=== PATIENT | male | born 1955 | race African-American/Black ===

== ENCOUNTER 2016-07-23 14:42 | Emergency (ER) | payer OTHER ==
[2016-07-23] MEDS ORDERED: ACETAMINOPHEN TAB 500 MG TAB PO STA (15:16)
[2016-07-23] MEDS ORDERED: BENZONATATE 100 MG CAP PO STA (15:17)
--- NOTE | 2016-07-23 15:37 | ED ---
General Adult HPI - General Chief complaint: Upper Respiratory Infection Stated complaint: YA Time Seen by Provider: 07/23/16 15:13 Source: patient, RN notes reviewed Mode of arrival: wheelchair Limitations: no limitations - History of Present Illness Initial comments: 60-year-old male presents to the emergency department with a chief complaint of cough cold and fever like symptoms. Patient states she's been sick for the last 2-3 days. He has not had a productive cough. He states he's had a runny nose sore throat and ear pain. He states he has had fevers on and off. Patient states she's been using Motrin and Claudia-Elberfeld for her symptoms. Patient states she was concerned due to the continued cough so he thought that he should be evaluated. Patient denies any recent shortness of breath, chest pain, back pain, abdominal pain, nausea vomiting, numbness or tingling, dysuria or hematuria, constipation or diarrhea, headaches or visual changes, or any other current symptoms. - Related Data Home Medications Medication Instructions Recorded Confirmed Cholecalciferol [Vitamin D3] 2,000 unit PO DAILY 01/19/16 07/23/16 Clopidogrel [Plavix] 75 mg PO DAILY 01/19/16 07/23/16 Colchicine [Colcrys] 0.6 mg PO BID 01/19/16 07/23/16 Gabapentin [Neurontin] 300 mg PO TID 01/19/16 07/23/16 HYDROcodone/APAP 10-325MG [[place] 1 tab PO BID PRN 01/19/16 07/23/16 10-325] Lisinopril 40 mg PO DAILY 01/19/16 07/23/16 Sennosides [Senna] 8.6 mg PO BID PRN 01/19/16 07/23/16 Tamsulosin HCl [Flomax] 0.4 mg PO DAILY 01/19/16 07/23/16 amLODIPine [Norvasc] 10 mg PO DAILY 07/23/16 07/23/16 hydrALAZINE HCL [Apresoline] 50 mg PO Q6H 07/23/16 07/23/16 hydrALAZINE HCL [Apresoline] 100 mg PO Q6H 07/23/16 07/23/16 Previous Rx's Medication Instructions Recorded Carvedilol [Coreg*] 12.5 mg PO BID-W/MEALS tab 02/28/16 Oseltamivir [Tamiflu] 75 mg PO Q12HR #10 cap 07/23/16 Allergies Allergy/AdvReac Type Severity Reaction Status Date / Time morphine Allergy Anaphylaxis Verified 07/23/16 15:37 Review of Systems ROS Statement: Those systems with pertinent positive or pertinent negative responses have been documented in the HPI. ROS Other: All systems not noted in ROS Statement are negative. 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 History of Any Multi-Drug Resistant Organisms: None Reported Past Surgical History: Orthopedic Surgery Additional Past Surgical History / Comment(s): LT KNEE SX, RT WRIST BONE GRAFT, RT EAR SX(PATCH) , EGD, COLONOSOCPY Past Anesthesia/Blood Transfusion Reactions: No Reported Reaction Additional Past Anesthesia/Blood Transfusion Reaction / Comment(s): CLAUSTERPHOBIA Past Psychological History: No Psychological Hx Reported Smoking Status: Former smoker Past Alcohol Use History: None Reported Additional Past Alcohol Use History / Comment(s): STARTED SMOKING AT AGE 14 SMOKED ON AND OFF, QUIT 2011 Past Drug Use History: None Reported - Past Family History Mother Family Medical History: Hypertension Father Family Medical History: Cancer Additional Family Medical History / Comment(s): LUNG CANCER General Exam - General Exam Comments Initial Comments: General exam: Alert, active, comfortable in no apparent distress Head: Normocephalic Eyes: Normal reaction of pupils, equal size, normal range of extraocular motion Ears: normal external ear canals, pink tympanic membranes with normal cone of light Nose: clear with pink turbinates Throat: no erythema or exudates with normal sized tonsils Neck: no masses, no nuchal rigidity Chest: no chest wall deformity Lungs: equal air entry with no crackles or wheeze CVS: S1 and S2 normal with no audible mumurs, regular rhythm Abdomen: no hepatosplenomegaly, normal bowel sounds, no guarding or rigidity Spine: no scoliosis or deformity Skin: no rashes Neurological: No focal deficits, tone is normal in all 4 extremities Limitations: no limitations Course Vital Signs 07/23/16 15:00 Temperature 97.5 F L Pulse Rate 64 Respiratory 22 Rate Blood Pressure 189/99 O2 Sat by Pulse 96 Oximetry Medical Decision Making - Medical Decision Making 60-year-old male presents to the emergency Department chief complaint of cough cold and runny nose like symptoms. This and the patient is positive for influenza. At this time we will set the patient on Tamiflu. We discussed follow-up and return parameters. We discussed all the patient's questions. He stated he understood. - Lab Data Lab Results 07/23/16 Range/Units 15:34 Influenza Type A RNA Detected A (Not Detectd) Influenza Type B (PCR) Not Detected (Not Detectd) - Radiology Data Radiology results: report reviewed, image reviewed Disposition Clinical Impression: Influenza Disposition: HOME SELF-CARE Condition: Stable Instructions: Influenza (ED) Additional Instructions: Please use medication as discussed. Please follow up with family doctor if symptoms have not improved over the next two days. Please return to the emergency room if your symptoms increase or worsen or for any other concerns. Prescriptions: Oseltamivir [Tamiflu] 75 mg PO Q12HR #10 cap Referrals: Lona Marie MD [Primary Care Provider] - 1-2 days Time of Disposition: 16:10
--- NOTE | 2016-07-23 15:50 | XR ---
EXAMINATION TYPE: XR chest 2V DATE OF EXAM: 07/23/2016 3:27 PM COMPARISON: 02/27/2016 HISTORY: 60-year-old male with cough, congestion, fever TECHNIQUE: AP and lateral views FINDINGS: Heart remains upper limits of normal in size. Dilatation of the aortic knob redemonstrated. Mild inte rstitial prominence appears chronic. The medial left basilar pulmonary nodule seen on prior CT not ra diographically apparent. No consolidation or pleural effusion. IMPRESSION: 1. Redemonstrated thoracic aortic aneurysm. 2. Chronic changes, possible chronic bronchitis/asthma. No definite acute process. 3. Refer to report from CT of 02/27/2016. The suspicious nodule in the medial left lower lobe mentione d at that time is not radiographically apparent.
[2016-07-23 16:17] VITALS: BP 144/81; PULSE 60; RESP 20; TEMP 98
== END 2016-07-23 16:25 | disposition home or self-care (01) ==
LOC: EC 14:42
DX: J10.1 Influenza due to other identified influenza virus with other respiratory manifestations (principal); I11.0 Hypertensive heart disease with heart failure; I50.9 Heart failure, unspecified; N28.9 Disorder of kidney and ureter, unspecified; G47.30 Sleep apnea, unspecified; N42.9 Disorder of prostate, unspecified; Z87.891 Personal history of nicotine dependence; Z79.01 Long term (current) use of anticoagulants; Z79.899 Other long term (current) drug therapy; Z88.5 Allergy status to narcotic agent
CPT/HCPCS: 71020; 87502; 99283

== ENCOUNTER 2016-08-22 02:51 | Observation (INO) | payer OTHER ==
[2016-08-22] MEDS ORDERED: SODIUM CHLORIDE 0.9% 1,000 ML IV STA (03:26)
[2016-08-22 03:37] LABS: Basophils # (A) 0.1 k/uL (0-0.2); Basophils % (A) 1 %; CH 28.6; CHCM 34.2; Eosinophils # (A) 0.5 k/uL (0-0.7); Eosinophils % (A) 7 %; HDW 2.42; HGB 14.2 gm/dL (13.0-17.5); Luc # (Auto) 0.25; Luc % (Auto) 4; Lymphocytes # (A) 3.5 k/uL (1.0-4.8); Lymphocytes % (A) 55 %; MCH 28.3 pg (25.0-35.0); MCHC 33.8 g/dL (31.0-37.0); MCV 83.9 fL (80.0-100.0); Mean Platelet Volume 8.6; Monocytes # (A) 0.5 k/uL (0-1.0); Monocytes % (A) 8 %; Neutrophils # (A) 1.6 k/uL (1.3-7.7); Neutrophils % (A) 25 %; RBC 5.01 m/uL (4.30-5.90); RDW 14.4 % (11.5-15.5); WBC 6.3 k/uL (3.8-10.6)
[2016-08-22 03:55] LABS: Calcium 9.4 mg/dL (8.4-10.2); Total Bilirubin 0.7 mg/dL (0.2-1.3); Total Protein 7.4 g/dL (6.3-8.2)
--- NOTE | 2016-08-22 04:09 | CT ---
EXAM: CT Head Without Intravenous Contrast. CLINICAL HISTORY: Reason: Pain TECHNIQUE: Axial computed tomography images of the head/brain without intravenous contrast. CTDI is 60.30 mGy and DLP is 1036.00 mGy-cm This CT exam was performed using one or more of the following dose reduction techniques: automated exposure control, adjustment of the mA and/or kV according to patient size, and/or use of iterative reconstruction technique. COMPARISON: No relevant prior studies available. FINDINGS: Brain: Patchy periventricular white matter hypodensity bilaterally, most commonly seen on a chronic small vessel ischemic basis. There appears to be subtle hypodensity within the left midbrain and ga, that may be on a similar basis or secondary to an infarct, of indeterminate age. There is a small region of encephalomalacia alongside the right frontal horn, at the base of the right caudate head. No hemorrhage. Ventricles: Unremarkable. No ventriculomegaly. Bones/joints: Unremarkable. No acute fracture. Soft tissues: Multiple scattered dermal calcifications throughout. Vasculature: Intracranial atherosclerosis is present. Sinuses: Paranasal sinus mucosal thickening involving the bilateral frontal and ethmoid sinuses, along with a small amount of fluid in the left frontal sinus.. Mastoid air cells: Unremarkable as visualized. No mastoid effusion. IMPRESSION: 1. Diffuse presumed chronic small vessel ischemic changes along with small chronic appearing infarct alongside the right frontal horn. 2. There is additional hypodensity in the left midbrain and ga that may be on a similar, chronic small vessel basis or sequela from infarct that is technically of indeterminate age. Comparison to prior studies could be useful as may be short-term follow-up CT or MRI if concern for, or symptoms of, acute stroke persist. 3. Bilateral paranasal sinus disease, as above. [employer] 08/22/16 04:13 Call Doctor Regarding Stroke, called DR LOVE @ [phone]
--- NOTE | 2016-08-22 04:10 | XR ---
EXAM: XR Chest, 2 Views. CLINICAL HISTORY: Reason: Rule out pneumonia TECHNIQUE: Frontal and lateral views of the chest. COMPARISON: No relevant prior studies available. FINDINGS: Lungs: Pulmonary vascular markings are borderline prominent which could reflect a component of pulmonary vascular equilibration without overt CHF. Pleural space: Unremarkable. No pneumothorax. Heart: Mild cardiomegaly. Mediastinum: Aortic ectasia and mild enlargement. Bones/joints: No acute displaced fracture. Degenerative changes are present. IMPRESSION: No definite acute intrathoracic abnormality is seen, as above.
--- NOTE | 2016-08-22 05:29 | ED ---
Syncope HPI - General Chief Complaint: Dizziness Stated Complaint: Syncope/Vomiting Time Seen by Provider: 08/22/16 03:02 Source: patient, family Mode of arrival: ambulatory - History of Present Illness Initial Comments: Patient has episode of passing out, he was accompanying his to the hospital and I seen him sitting in the room with his later nurses notified me that he had passed out for a short duration there was no injury or fall but he had passed out. When I seen him he denied any headache or blurred vision or chest pain or shortness of breath he has a history of for 2 strokes in the past one small ones he called and 1 major 1 there was both for like 5 in 3 years ago previous strokes affected his left side left upper and lower extremity his left arm is weak from his previous stroke so is the left leg. His weakness is not any worse he feels it's at the same level where he was prior to today - Related Data Home Medications Medication Instructions Recorded Confirmed Cholecalciferol [Vitamin D3] 2,000 unit PO DAILY 01/19/16 08/22/16 Clopidogrel [Plavix] 75 mg PO DAILY 01/19/16 08/22/16 Colchicine [Colcrys] 0.6 mg PO BID 01/19/16 08/22/16 Gabapentin [Neurontin] 300 mg PO TID 01/19/16 08/22/16 HYDROcodone/APAP 10-325MG [[place] 1 tab PO BID PRN 01/19/16 08/22/16 10-325] Lisinopril 40 mg PO DAILY 01/19/16 08/22/16 Sennosides [Senna] 8.6 mg PO BID PRN 01/19/16 08/22/16 Tamsulosin HCl [Flomax] 0.4 mg PO DAILY 01/19/16 08/22/16 amLODIPine [Norvasc] 10 mg PO DAILY 07/23/16 08/22/16 hydrALAZINE HCL [Apresoline] 50 mg PO Q6H 07/23/16 08/22/16 hydrALAZINE HCL [Apresoline] 100 mg PO Q6H 07/23/16 08/22/16 Gabapentin [Neurontin] 300 mg PO 08/22/16 HYDROcodone/APAP 10-325MG [[place] 1 tab PO Q4HR PRN 08/22/16 08/22/16 10-325] Previous Rx's Medication Instructions Recorded Carvedilol [Coreg*] 12.5 mg PO BID-W/MEALS tab 02/28/16 Oseltamivir [Tamiflu] 75 mg PO Q12HR #10 cap 07/23/16 Allergies Allergy/AdvReac Type Severity Reaction Status Date / Time morphine Allergy Anaphylaxis Verified 07/23/16 15:37 Review of Systems ROS Statement: Those systems with pertinent positive or pertinent negative responses have been documented in the HPI. ROS Other: All systems not noted in ROS Statement are negative. 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 History of Any Multi-Drug Resistant Organisms: None Reported Past Surgical History: Orthopedic Surgery Additional Past Surgical History / Comment(s): LT KNEE SX, RT WRIST BONE GRAFT, RT EAR SX(PATCH) , EGD, COLONOSOCPY Past Anesthesia/Blood Transfusion Reactions: No Reported Reaction Additional Past Anesthesia/Blood Transfusion Reaction / Comment(s): CLAUSTERPHOBIA Past Psychological History: No Psychological Hx Reported Smoking Status: Former smoker Past Alcohol Use History: None Reported Additional Past Alcohol Use History / Comment(s): STARTED SMOKING AT AGE 14 SMOKED ON AND OFF, QUIT 2011 Past Drug Use History: None Reported - Past Family History Mother Family Medical History: Hypertension Father Family Medical History: Cancer Additional Family Medical History / Comment(s): LUNG CANCER General Exam - General Exam Comments Initial Comments: General: The patient is awake and alert, in no distress, and does not appear acutely ill. GCS is 15 Skin: Skin is warm and dry and no rashes or lesions are noted. Eye: Pupils are equal, round and reactive to light, extra-ocular movements are intact; there is normal conjunctiva bilaterally. Ears, nose, mouth and throat: There are moist mucous membranes and no oral lesions. Neck: The neck is supple, there is no tenderness or JVD. Cardiovascular: There is a regular rate and rhythm. No murmur, rub or gallop is appreciated. Noticed bradycardia heart rate was 47 Respiratory: To auscultation bilateral, no wheezing no rhonchi no distress respiratory bosch noticed him a decreased breath sounds bilaterally Gastrointestinal: Soft, non-distended, non-tender abdomen without masses or organomegaly noted. There is no rebound or guarding present. Bowel sounds are unremarkable. Back: There is no tenderness to palpation in the midline. There is no obvious deformity. Musculoskeletal: Noticed weakness of left upper and left lower extremity, according to the patient gets residual effect from his previous CVA Neurological: CN II-XII intact, Cranial nerves III through XII are intact. There are no obvious motor or sensory deficits. Coordination appears grossly intact. Speech is normal. Psychiatric: Cooperative, appropriate mood & affect, normal judgment. Course Vital Signs 08/22/16 08/22/16 03:02 03:22 Temperature 97.9 F Pulse Rate 74 56 L Respiratory 16 16 Rate Blood Pressure 121/74 121/77 O2 Sat by Pulse 91 L 98 Oximetry EKG Findings - EKG Comments: EKG Findings:: KG is a sinus bradycardia is ventricular rate is 45 his NE interval is 216, QRS duration is 98 QT/QTc is 514/444, degree of this EKG does not show any ST elevation or ST depression Medical Decision Making - Lab Data Result diagrams: 08/22/16 03:11 08/22/16 03:11 Lab Results 08/22/16 08/22/16 08/22/16 Range/Units 03:11 03:11 03:11 WBC 6.3 (3.8-10.6) k/uL RBC 5.01 (4.30-5.90) m/uL Hgb 14.2 (13.0-17.5) gm/dL Hct 42.0 (39.0-53.0) % MCV 83.9 (80.0-100.0) fL MCH 28.3 (25.0-35.0) pg MCHC 33.8 (31.0-37.0) g/dL RDW 14.4 (11.5-15.5) % Plt Count 118 L (150-450) k/uL Neutrophils % 25 % Lymphocytes % 55 % Monocytes % 8 % Eosinophils % 7 % Basophils % 1 % Neutrophils # 1.6 (1.3-7.7) k/uL Lymphocytes # 3.5 (1.0-4.8) k/uL Monocytes # 0.5 (0-1.0) k/uL Eosinophils # 0.5 (0-0.7) k/uL Basophils # 0.1 (0-0.2) k/uL Sodium 141 (137-145) mmol/L Potassium 4.0 (3.5-5.1) mmol/L Chloride 103 (98-107) mmol/L Carbon Dioxide 28 (22-30) mmol/L Anion Gap 10 mmol/L BUN 19 (9-20) mg/dL Creatinine 1.80 H (0.66-1.25) mg/dL Est GFR (MDRD) Af Amer 47 (>60 ml/min/1.73 sqM) Est GFR (MDRD) Non-Af 39 (>60 ml/min/1.73 sqM) Glucose 113 H (74-99) mg/dL Plasma Lactic Acid Brandon (0.7-2.0) mmol/L Calcium 9.4 (8.4-10.2) mg/dL Total Bilirubin 0.7 (0.2-1.3) mg/dL AST 39 (17-59) U/L ALT 45 (21-72) U/L Alkaline Phosphatase 73 (38-126) U/L Troponin I 0.013 (0.000-0.034) ng/mL Total Protein 7.4 (6.3-8.2) g/dL Albumin 3.8 (3.5-5.0) g/dL 08/22/16 Range/Units 04:10 WBC (3.8-10.6) k/uL RBC (4.30-5.90) m/uL Hgb (13.0-17.5) gm/dL Hct (39.0-53.0) % MCV (80.0-100.0) fL MCH (25.0-35.0) pg MCHC (31.0-37.0) g/dL RDW (11.5-15.5) % Plt Count (150-450) k/uL Neutrophils % % Lymphocytes % % Monocytes % % Eosinophils % % Basophils % % Neutrophils # (1.3-7.7) k/uL Lymphocytes # (1.0-4.8) k/uL Monocytes # (0-1.0) k/uL Eosinophils # (0-0.7) k/uL Basophils # (0-0.2) k/uL Sodium (137-145) mmol/L Potassium (3.5-5.1) mmol/L Chloride (98-107) mmol/L Carbon Dioxide (22-30) mmol/L Anion Gap mmol/L BUN (9-20) mg/dL Creatinine (0.66-1.25) mg/dL Est GFR (MDRD) Af Amer (>60 ml/min/1.73 sqM) Est GFR (MDRD) Non-Af (>60 ml/min/1.73 sqM) Glucose (74-99) mg/dL Plasma Lactic Acid Brandon 0.8 (0.7-2.0) mmol/L Calcium (8.4-10.2) mg/dL Total Bilirubin (0.2-1.3) mg/dL AST (17-59) U/L ALT (21-72) U/L Alkaline Phosphatase (38-126) U/L Troponin I (0.000-0.034) ng/mL Total Protein (6.3-8.2) g/dL Albumin (3.5-5.0) g/dL Disposition Clinical Impression: Syncope, Bradycardia, TIA (transient ischemic attack), Sinusitis Disposition: ADMITTED IP TO THIS HOSP Condition: Good
[2016-08-22] MEDS ORDERED: ACETAMINOPHEN TAB 325 MG TAB PO PRN (05:32)
[2016-08-22] MEDS ORDERED: ONDANSETRON 4 MG/2 ML VIAL IVP PRN (05:32)
[2016-08-22] MEDS ORDERED: NALOXONE 0.4 MG/ML 1 ML VIAL IV PRN (05:32)
[2016-08-22] MEDS ORDERED: SENNOSIDES 8.6 MG TAB PO PRN (05:40)
[2016-08-22] MEDS: hydrALAZINE HCL 50 MG TAB PO SCH ×8 (06:57→23:05)
[2016-08-22 07:10] LABS: Appearance,Urine Clear (Clear); Bilirubin,Urine Negative (Negative); Glucose,Urine (UA) Negative (Negative); Ketones,Urine Negative (Negative); Leukocyte Esterase,Urine Trace (Negative); Mucus,Urine Rare /hpf; Nitrite,Urine Negative (Negative); PH, Urine 5.5 (5.0-8.0); Particle Count 1270; Protein,Urine Negative (Negative); Squamous Epithelial Cell,Urine <1 /hpf (0-4); UA Billing (MACRO vs. MICRO) MICRO; Urobilinogen,Urine <2.0 mg/dL (<2.0); WBC,Urine 4 /hpf (0-5)
[2016-08-22] MEDS ORDERED: CARVEDILOL 12.5 MG TAB PO SCH (07:30)
[2016-08-22] MEDS: HYDROcodone/APAP 10-325MG 1 EACH TAB PO PRN ×2 (08:23→17:08)
[2016-08-22] MEDS ORDERED: GABAPENTIN 300 MG CAP PO SCH (09:00)
[2016-08-22] MEDS: COLCHICINE 0.6 MG TAB PO SCH ×2 (09:11→23:05)
[2016-08-22] MEDS: LISINOPRIL 20 MG TAB PO SCH (09:11)
[2016-08-22] MEDS: amLODIPine 10 MG TAB PO SCH (09:11)
[2016-08-22] MEDS: CLOPIDOGREL 75 MG TAB PO SCH (09:11)
[2016-08-22] MEDS: GABAPENTIN 300 MG CAP PO SCH ×3 (09:12→20:55)
[2016-08-22] MEDS: TAMSULOSIN 0.4 MG CAP.ER.24H PO SCH (09:12)
[2016-08-22] MEDS: CHOLECALCIFEROL 1,000 UNIT TAB PO SCH (09:12)
[2016-08-22] MEDS ORDERED: DOBUTamine DRIP for NUC MED 500 MG in DEXTROSE/WATER 1 250ML.BAG IV ONE (15:17)
--- NOTE | 2016-08-22 18:52 | CONS ---
DATE OF CONSULTATION: 08/22/2016 REASON FOR CONSULTATION: Cardiac evaluation and treatment of syncope. HISTORY OF PRESENT ILLNESS: Mr. Mauro Lauren is a known patient with hypertension with history of stroke 2 days ago with left-sided weakness, but patient is able to walk without any help but unable to raise the left hand; has grade 3 power and is weak. Patient apparently had an episode of nausea and vomiting in [facility] and then he passed out without any loss of bladder or bowel control. No injuries were noted. Patient was sitting at that time. Denied any headache. CT of the brain did not show any acute ischemic changes and chronic changes, small vessel disease. Patient apparently claims to be reasonably active and walks about in the [facility]. Patient denied any chest pain or pressure. No previous history of myocardial infarction. History of hypertension and stroke. Patient is currently on: 1. Vitamin D 2000 units daily. 2. Plavix 75 mg p.o. daily. 3. Colchicine 0.6 mg p.o. b.i.d. 4. Neurontin 300 mg p.o. t.i.d. 5. Kopperl 1 b.i.d. p.r.n. 6. Lisinopril 40 mg p.o. daily. 7. Senna 8.6 mg p.o. b.i.d. 8. Flomax 0.4 mg p.o. daily. 9. Amlodipine 10 mg p.o. daily. 10. Hydralazine 50 mg every 6 hours. 11. Hydralazine 100 mg every 6 hours. 12. Gabapentin 300 mg p.o. daily. 13. Hydrocodone Kopperl p.r.n. basis. Patient's previous medications included: 1. Carvedilol (will be discontinued because of the bradycardia; may be aggravated by vagal tone associated with nausea). 2. Tamiflu, which was discontinued. ALLERGIES: MORPHINE. Patient used to be a smoker; quit smoking 5 years ago. Does not take any alcoholic beverages. Patient has a history of hypertension, prostate disorder, renal disease, sleep apnea, history of gout. Patient denies any symptoms at the present time. REVIEW OF SYSTEMS: Essentially unremarkable other than what is stated in the presenting illness. Physical examination revealed a well-developed, well-nourished 61-year-old black male with stable vital signs with a pulse rate of 60 beats per minute and regular, blood pressure of 164/93, respirations of 17. HEAD: Normocephalic. HEENT unremarkable. Neck is supple. No thyroid enlargement. No bruit noted. Good carotid upstroke bilaterally. Chest is symmetrical. Cardiac examination: regular rate and rhythm. S1, S2. Lungs are clinically to auscultation and percussion. Abdomen is soft. No organomegaly. Active bowel sounds. EXTREMITIES: Peripheral pulses. No pedal edema. 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 Patient ( ) stroke. EKG revealed sinus bradycardia. ASSESSMENT: 1. Syncope, probably aggravated by increasing vagal tone associated with nausea, coughing and bradycardia and hypotension resulting in symptoms, but will rule out any underlying ischemic heart disease. Patient had an echocardiogram in December which showed normal LV function, mild LVH. Will proceed with a dobutamine stress echocardiogram, as patient is unable to do any Lexiscan because he is unable to lift his left hand, to rule out underlying ischemic heart disease. Will discontinue the carvedilol. 2. Bradycardia. Will get the TSH to make sure patient does not have any hyperthyroidism. 3. Hypertension. Will get lipid panels, also. 4. History of old cerebrovascular accident with left-sided weakness.
--- NOTE | 2016-08-22 20:57 | NM ---
EXAMINATION TYPE: NM pul vent and perfuse DATE OF EXAM: 08/22/2016 8:48 PM COMPARISON: NONE HISTORY: Chest pain TECHNIQUE: Utilizing inhalation of 70.5 mCi Tc 99m DTPA aerosol and intravenous injection of 5.5 mCi of Tc 99m MAA, ventilation and perfusion images are acquired post injection in multiple projections. FINDINGS: Normal radiotracer distribution is noted in the lungs. There is no evidence of mismatched defects. IMPRESSION: Negative lung scan. There is a very low probability of pulmonary was.
[2016-08-22] MEDS ORDERED: ENOXAPARIN 100 MG/ML SYRINGE SQ SCH (21:00)
[2016-08-22] MEDS ORDERED: ATORVASTATIN 20 MG TAB PO SCH (21:00)
[2016-08-23] MEDS ORDERED: DOBUTamine DRIP for NUC MED 500 MG in DEXTROSE/WATER 1 250ML.BAG IV ONE (01:00)
[2016-08-23] MEDS ORDERED: HEPARIN SODIUM,PORCINE 5,000 UNIT/ML 1 ML VIAL SQ SCH (08:00)
--- NOTE | 2016-08-23 08:39 | US ---
EXAMINATION TYPE: US carotid duplex BILAT DATE OF EXAM: 08/23/2016 7:44 AM COMPARISON: Prior exam 27 February 2016 CLINICAL HISTORY: Syncope, Hx of CVA. Syncope, TIA, HTN EXAM MEASUREMENTS: RIGHT: Peak Systolic Velocity (PSV) cm/sec ----- Right CCA: 42.3 ----- Right ICA: 71.1 ----- Right ECA: 42.2 ICA/CCA ratio: 1.7 RIGHT: End Diastole cm/sec ----- Right CCA: 14.1 ----- Right ICA: 32.7 ----- Right ECA: 11.1 LEFT: Peak Systolic Velocity (PSV) cm/sec ----- Left CCA: 38.7 ----- Left ICA: 70.6 ----- Left ECA: 40.2 ICA/CCA ratio: 1.8 LEFT: End Diastole cm/sec ----- Left CCA: 12.5 ----- Left ICA: 28.7 ----- Left ECA: 8.1 VERTEBRALS (direction of flow): Right Vertebral: Antegrade Left Vertebral: Antegrade Bilateral intimal thickening, minimal plaque right bulb, no elevated velocities, no significant steno sis Thyroid: right lobe 1.6 x 1.2 x 1.5cm complex vascular nodule Grayscale, color Doppler, spectral Doppler imaging performed of the carotid arteries. IMPRESSION: No hemodynamic significant stenosis of the proximal internal carotid arteries bilaterall y by Doppler criteria, an indirect measurement of carotid stenosis
[2016-08-23] MEDS: COLCHICINE 0.6 MG TAB PO SCH (09:25)
[2016-08-23] MEDS: CLOPIDOGREL 75 MG TAB PO SCH (09:25)
[2016-08-23] MEDS: hydrALAZINE HCL 50 MG TAB PO SCH ×4 (09:25→11:02)
[2016-08-23] MEDS: amLODIPine 10 MG TAB PO SCH (09:25)
[2016-08-23] MEDS: LISINOPRIL 20 MG TAB PO SCH (09:25)
[2016-08-23] MEDS: GABAPENTIN 300 MG CAP PO SCH (09:25)
--- NOTE | 2016-08-23 09:38 | CONS ---
DATE OF CONSULTATION: 08/22/2016 CHIEF COMPLAINT: Syncope. HISTORY OF PRESENT ILLNESS: Mr. Lauren is a pleasant 61-year-old male who is being evaluated by the neurology service per the request of Dr. Weller for a syncopal spell. The patient was into [facility] Emergency Room his girlfriend who had come in for increased bleeding after a dental procedure. While in the emergency room, the patient had a syncopal episode. The patient does not recall any chest palpitations, but does remember feeling dizzy prior to the episode. His vital signs at that time were normal except for a slightly reduced pulse ox at 91%. A stat EKG was done, which showed sinus bradycardia with a pulse of 45 beats per minute. A CT scan of the brain was done, which showed old infarcts involving the right frontal lobe and also involving the left ga and mid brain. The patient does have a previous history of stroke with residual left upper extremity weakness, which he suffered a few years ago. The patient is on Plavix 75 mg daily at home. His CBC showed thrombocytopenia at 118,000. His cardiac enzymes and urinalysis were normal. His comprehensive metabolic profile was normal except for elevated creatinine at 1.80. His fasting lipid panel showed mild dyslipidemia with an LDL of 119. The patient was admitted for further work-up and management. At the time of my evaluation, the patient is lying in his bed and appears to be in no acute distress. He denies any recurrence of any dizziness since his admission. PAST MEDICAL HISTORY: Heart failure, stroke, gastroesophageal reflux disease, hypertension, chronic renal disease, obstructive sleep apnea, gout, history of orthopedic surgeries. SOCIAL HISTORY: The patient is a former smoker and quit smoking approximately 4 years ago. He denies any alcohol or drug use. FAMILY HISTORY: Positive for cancer and hypertension. HOME MEDICATIONS: Reviewed in the chart. ALLERGIES: MORPHINE. REVIEW OF SYSTEMS: CONSTITUTIONAL: Negative. EYES: Negative. ENT: Negative. CARDIOVASCULAR: As mentioned above. RESPIRATORY: Negative. NEUROLOGICAL: As mentioned above. GASTROINTESTINAL: Positive for occasional heartburn. GENITOURINARY: Negative. MUSCULOSKELETAL: Positive for occasional joint pain. DERMATOLOGICAL: Negative. ENDOCRINE: Negative. PSYCHIATRIC: Negative. PHYSICAL EXAM: Vital signs show a temperature of 97.5, pulse 61, respirations 17, blood pressure 152/92. GENERAL APPEARANCE: The patient is a well-developed male who appears to be in no acute distress. HEENT: Normocephalic, atraumatic. No facial asymmetry is seen. Neck is supple with no masses felt. CARDIOVASCULAR: Regular rate and rhythm. ABDOMEN: Nontender, nondistended. EXTREMITIES: No edema or clubbing. He does have some contractures in the left upper extremity due to his old ischemic stroke. NEUROLOGICAL EXAM: The patient is alert, aware, and oriented x3. Speech and language are normal. Strength is 3/5 in the left upper extremity and 5/5 elsewhere. Mild contractures are noticed in the left upper extremity. Sensory exam was normal to light touch in all 4 extremities. No facial asymmetry is seen on cranial nerve testing. No seizure-like activity is seen. IMPRESSION: 1. Syncopal episodes. 2. Sinus bradycardia. 3. History of ischemic stroke. 4. Left upper extremity weakness. 5. Dyslipidemia. 6. Renal insufficiency. 7. Thrombocytopenia. RECOMMENDATIONS: The patient's syncopal episode was likely due to his significant bradycardia. He is currently in a normal sinus rhythm with a normal rate. Cardiology has been consulted. I will order an EEG and a carotid Doppler. For his previous history of stroke, I will keep him on Plavix 75 mg daily. I did review his CT scan of the brain which did show his old multiple ischemic strokes. His fasting lipid panel did show elevated LDL and I will start him on 20 mg daily. I do recommend further monitoring for his thrombocytopenia. Continue the rest of your current work-up and management. I will continue to follow with you. Further recommendations to follow. Thank you for allowing me to participate in the care of your patient. If you have any questions, please feel free to contact me.
[2016-08-23] MEDS: TAMSULOSIN 0.4 MG CAP.ER.24H PO SCH (09:41)
[2016-08-23] MEDS: CHOLECALCIFEROL 1,000 UNIT TAB PO SCH (09:41)
[2016-08-23 09:55] VITALS: RESP 18
--- NOTE | 2016-08-23 10:54 | HP ---
DATE OF ADMISSION: 08/22/2016 CHIEF COMPLAINT: Syncope. HISTORY OF PRESENT ILLNESS: Mr. Lauren is a 61-year-old male with known history of hypertension, obstructive sleep apnea, on CPAP and history of previous CVA about two years ago with left-sided weakness and had an episode of passing out while he was in the ER. The patient was accompanying his to the hospital and the patient was in the room with his . Nurses notified that the patient had an episode of passing out for a few seconds. Patient does not have any fall or injury. Denied any headache or blurry vision. Patient had an episode of nausea and vomiting and ( ) passing out. No bladder or bowel incontinence and no shaky movements noted or seizures. Patient has a history of stroke in the past with left-sided weakness both upper and lower extremities. No worsening of weakness noted. The patient was also noted to have bradycardia and the patient had a CT of the head was done in the ER that showed no acute intracranial process. REVIEW OF SYSTEMS: CONSTITUTIONAL: No fever. No chills. No weakness. No new weakness and no malaise. RESPIRATORY: No cough or sputum production. CARDIOVASCULAR: No chest pain or short of breath. ABDOMEN: No nausea, vomiting, abdominal pain. GENITOURINARY: Negative. ENDOCRINE: Negative. NEUROLOGIC: No headache or dizziness or lightheadedness. All other fourteen-point review of systems negative except as above. PAST MEDICAL HISTORY: Gout and DJD, obstructive sleep apnea noncompliant with the CPAP machine, hypertension, prostate disorder, history of cerebrovascular accident/transient ischemic attack, GERD. Past surgical history of left knee surgery, right wrist bone graft and right ear surgery, EGD, colonoscopy. No psychosocial history. SOCIAL HISTORY: The patient is a former smoker, started smoking at age 14, smoked on and off, quit in 2011. FAMILY HISTORY: Mother has hypertension. Father has lung cancer. ALLERGIES: MORPHINE. Home medications: 1. Vitamin D3. 2. Plavix. 3. Colchicine. 4. Gabapentin. 5. [place] 10. 6. Lisinopril. 7. Senna. 8. Flomax. 9. Amlodipine. 10. Hydralazine. 11. Gabapentin. 12. Coreg. 13. Tamiflu. PHYSICAL EXAMINATION: A 61-year-old male lying in the bed. Awake, alert, oriented, x3. He appears to be in no apparent distress. VITALS: Blood pressure 121/77, pulse is 56, respirations 16, temperature afebrile, pulse ox 98% on 2 liters nasal cannula. HEENT: Atraumatic, normocephalic. Neck is supple. No JVD. CVS: S1, S2 heard. No murmurs, no gallop. LUNGS: Bilateral air entry is present. No wheezing, no crackles. ABDOMEN: Soft, nontender. Bowel sounds present. 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 The patient does have left sided weakness. Muscle strength 3/5 in both upper and lower extremity. PSYCHIATRIC: Cooperative. LABORATORY DATA: WBC 6.3, hemoglobin 14.2, platelets 118. Sodium 141, potassium 4.0, chloride 103, bicarb is 28. BUN 19, creatinine 1.8, lactic acid 0.8. Liver enzymes are not elevated. Troponin 0.013. TSH 3.7. UA negative. Chest x-ray no definite acute intrathoracic abnormality seen. CT head diffuse ( ) small ischemic changes along with small chronic appearing infarct along the right frontal horn. IMPRESSION: 1. Syncope most likely last vasovagal. Patient had an episode of nausea and coughing with bradycardia, rule out acute coronary syndrome. The patient had last echocardiogram done, showed normal left ventricular function. Cardiology is recommending dobutamine stress echocardiogram. Patient does not have any worsening weakness. Neurology has been consulted as well. 2. Bradycardia, Coreg has been held at this time and TSH is within normal limits. 3. Hypertension. 4. Obstructive sleep apnea noncompliant with CPAP machine. 5. History of cerebrovascular accident with left-sided weakness, motor strength 3 out of 5. 6. Chronic kidney disease, stage III, baseline creatinine 1.8. 7. Gastroesophageal reflux disease. 8. Degenerative joint disease. 9. Gout. 10. Deep venous thrombosis prophylaxis, on heparin subcu. DISCUSSION AND PLAN: The patient is a 61 -year-old male admitted to the hospital with syncopal episode, most like vasovagal, we will continue the telemetry monitoring. Coreg has been held due to bradycardia. Cardiology is planning for stress test tomorrow. We will continue the current management and further recommendations based on clinical glucose.
[2016-08-23] MEDS ORDERED: ATROPINE SULFATE 0.1 MG/ML 10ML SYRINGE ONE (12:00)
--- NOTE | 2016-08-23 12:29 | P.PN ---
Subjective Principal diagnosis: Syncope This is a 61-year-old -Swazi gentleman with history of hypertension, obstructive sleep apnea, on CPAP, chronic kidney disease, prior CVA , who had an episode of nausea and vomiting in [facility], at this time patient had passed out. He had no loss of bowel or bladder control during that time. Denied any headache, CT of the brain did not reveal any acute ischemic changes. Patient was also noted to be bradycardic. Coreg was held. TSH normal. Blood pressure this morning 150/80 heart rate in the 60s. Patient scheduled today to undergo dobutamine echocardiographic study. Carotid Doppler study did not reveal any hemodynamically significant stenosis. VQ scan low probability for pulmonary embolism. Objective - Vital Signs Vital signs: Vital Signs Temp 98.0 F 08/23/16 08:00 Pulse 64 08/23/16 08:00 Resp 18 08/23/16 08:00 BP 195/111 08/23/16 08:00 Pulse Ox 99 08/23/16 08:00 Intake & Output 08/22/16 08/23/16 08/23/16 18:59 06:59 18:59 Intake Total 600 360 Balance 600 360 Weight 107.6 kg 107.6 kg Intake: Oral 600 360 Other: # Voids 1 1 1 - Exam PHYSICAL EXAMINATION: HEENT: Head is atraumatic, normocephalic. Pupils equal, round. Neck is supple. There is no elevated jugular venous pressure. HEART EXAMINATION: Heart S1, S2 normal. No murmur or gallop heard. CHEST EXAMINATION: Lungs are clear to auscultation and precussion. No chest wall tenderness is noted on palpation or with deep breathing. ABDOMEN: Soft, nontender. Bowel sounds are heard. No organomegaly noted. EXTREMITIES: 2+ peripheral pulses with no evidence of peripheral edema and no calf tenderness noted. Left-sided weakness noted. Mild contractures noted in the left upper extremity. NEUROLOGIC patient is awake, alert and oriented -3. No facial asymmetry noted. . - Labs CBC & Chem 7: 08/22/16 03:11 08/22/16 03:11 Labs: Abnormal Lab Results - Last 24 Hours (Table) 08/22/16 Range/Units 16:28 D-Dimer 2.79 H (<0.60) mg/L FEU Assessment and Plan (1) Vasovagal syncope Status: Acute (2) Bradycardia Status: Acute (3) HTN (hypertension) Status: Acute (4) History of CVA (cerebrovascular accident) Status: Acute (5) Chronic kidney disease Status: Acute (6) Obstructive sleep apnea Status: Acute Plan: Patient scheduled today to undergo dobutamine echocardiographic study, pending the results of that further recommendations will be made. DNP note has been reviewed, I agree with a documented findings and plan of care. Patient was seen and examined.
[2016-08-23 12:34] VITALS: BP 170/98; PULSE 70; TEMP 98.5
--- NOTE | 2016-08-23 13:43 | EST ---
DATE OF SERVICE: 08/23/2016 AGE: 61Y SEX: M HT: 68 WT: 240 lbs. Protocol Tyrese: Other: Stage: Dur. of Exercise: 14:15 minutes *Heart Rate Blood Pressure *Rest: 58 Rest: 154/75 * *Max. Achieved: 147 Maximum BP: 20/94 85% PMHR: 137 100% PMHR: 161 *METS: INDICATIONS: Syncope. MEDICATIONS: See list. Baseline rhythm is sinus mechanism, rate of 58, normal axis and intervals, poor R wave progression. Baseline blood pressure 154/75 mmHg. Patient received infusion of dobutamine per protocol and 1 mg intravenous atropine. Peak rate 147 beats per minute, which is equal to 91% maximum predicted heart rate; peak blood pressure 204/94 mmHg. Electrocardiograph monitoring revealed no evidence of diagnostic ischemic ST deviation. FINDINGS: Baseline echocardiogram revealed normal wall motion. At peak exercise there was normal wall motion augmentation with no hypokinesis or dyskinesis. CONCLUSION: 1. Normal electrocardiograph response to dobutamine infusion. 2. Normal stress echocardiogram with no evidence of stress induced ischemia.
[2016-08-23 14:08] VITALS: BMI 36.1
[2016-08-23] MEDS ORDERED: HYDROCHLOROTHIAZIDE 50 MG TAB PO SCH (15:30)
--- NOTE | 2016-08-23 16:12 | P.PN ---
Subjective Principal diagnosis: Syncope Is a pleasant 61-year-old -[place] male continuing to be evaluated by the neurology service. She was brought in due to some increased bleeding after a dental procedure. While he was in the emergency room he had a syncopal episode. His carotid Doppler showed no hemodynamically significant stenosis. It did show of vascular thyroid nodule. He does have a history of previous CVA involving the left ga and midbrain. From this episode he does have residual left upper extremity weakness. He is currently on Plavix. Cardiology has evaluated and diagnosed with likelihood of vasovagal syncope. He has no new persistent neurological symptoms. At the time my exam he is resting comfortably in bed and anxious for discharge. Objective - Vital Signs Vital signs: Vital Signs Temp 98.5 F 08/23/16 12:00 Pulse 70 08/23/16 12:00 Resp 18 08/23/16 12:00 BP 170/98 08/23/16 12:00 Pulse Ox 99 08/23/16 12:00 Intake & Output 08/22/16 08/23/16 08/23/16 18:59 06:59 18:59 Intake Total 600 360 120 Balance 600 360 120 Weight 107.6 kg 107.6 kg Intake: Oral 600 360 120 Other: # Voids 1 1 1 - Constitutional General appearance: Present: average body habitus, no acute distress - EENT Eyes: Present: PERRLA. Absent: abnormal pupil, ptosis ENT: Present: hearing grossly normal - Neck Neck: Present: normal ROM. Absent: rigidity - Respiratory Respiratory: negative: prolonged expiration, prolonged inspiration - Cardiovascular Rhythm: regular - Neurologic Neurologic Comment(s): Patient is alert awake and oriented 3. Speech-language are normal. Strength is 3 out of 5 left upper extremity 5 out of 5 in all other extremities. Sensory exam is normal light touch. There is no facial asymmetry no tremors or seizure-like activities are seen. - Labs CBC & Chem 7: 08/22/16 03:11 08/22/16 03:11 Labs: Abnormal Lab Results - Last 24 Hours (Table) 08/22/16 08/23/16 Range/Units 16:28 06:13 D-Dimer 2.79 H (<0.60) mg/L FEU Homocysteine 19.28 H (4.00-14.00) umol/L Assessment and Plan (1) Bradycardia Status: Chronic (2) HTN (hypertension) Status: Chronic (3) History of CVA (cerebrovascular accident) Status: Chronic (4) Obstructive sleep apnea Status: Chronic (5) Syncope Status: Resolved Plan: His syncopal episode was due to his significant bradycardia. Etiology will continue to follow. He'll continue on Plavix and Lipitor 20 mg daily. Barring any of her seen abnormalities on his EEG he would be cleared from neurological standpoint. I have performed a history and physical on the above patient. I have reviewed the above note, and agree.
--- NOTE | 2016-08-24 23:48 | DS ---
DATE OF ADMISSION: 08/22/2016 DATE OF DISCHARGE: 08/23/2016 DISCHARGE DIAGNOSES: 1. Syncope, most likely vasovagal and bradycardia, Coreg has been discontinued CT duplex has been negative. The EEG report is pending. Patient had a stress echocardiogram done showed no stress induced ischemia. 2. Bradycardia Coreg dose has been discontinued and TSH is within normal limits. Bradycardia, improved now. 3. Hypertension. 4. Obstructive sleep apnea on CPAP. 5. History of cerebrovascular accident with left-sided weakness and motor strength 3 out of 5. Continued on Plavix and statins. 6. Chronic kidney disease, Stage III, baseline creatinine 1.8. 7. Gastroesophageal reflux disease. 8. Degenerative joint disease . 9. Gout. 10. Deep venous thrombosis prophylaxis, heparin subcu. HOSPITAL COURSE: Mr. Lauren is a 61-year-old male with known history of cerebrovascular accident x2 was accompany his to the hospital where he was having an episode of syncope and found to be bradycardic and had an episode of nausea and vomiting. Syncope most likely secondary to vasovagal and bradycardia. Patient has been taking Coreg 12.5 mg p.o. b.i.d., which has been discontinued and bradycardia much improved now. The patient seen by neurology and cardiology and neurology work-up including CT head, carotid duplex and EEG preliminary report has been essentially negative. The patient was seen by Cardiology and the patient had a stress echocardiogram showed no inducible ischemia. Otherwise, ( ) the hospital. The patient did not have any further syncopal episode. No complaints of dizziness or lightheadedness. The patient wants to go home. Coreg has been discontinued and hydrochlorothiazide has been started due to uncontrolled hypertension. The patient is on multiple blood pressure medications. The patient follows with Dr. Mendez as an outpatient the cardiology clinic at [facility]. Otherwise, the patient will be continued on ( ) continued on Plavix as well as statins. Currently continued on Lasix as well as statins. The patient is otherwise stable to be discharged home and follow with the primary physician in 1 to 3 days for repeat lab work-up. DISCHARGE PHYSICAL EXAMINATION: A 61-year-old male lying in bed comfortably. Awake, alert, oriented, x3 appears to be in no apparent distress. VITALS: Pressure is 170/98, pulse is 70, respirations 18, temp afebrile. Pulse ox 99% on room air. HEENT: Atraumatic, normocephalic. Neck is supple. No JVD. CARDIOVASCULAR: S1, S2 heard. No murmurs. No gallops. LUNGS: Bilateral air entry is present. No wheezing, no crackles. ABDOMEN: Soft, nontender. Bowel sounds present. CLOTH HAULER: Awake, alert, oriented x3. The patient does have left sided weakness. PSYCHIATRIC: Cooperative. LABORATORY DATA: Reviewed. D-dimer is elevated but VQ scan has been negative. Has been very low probability pulmonary embolism. EKG showed sinus bradycardia. DISCHARGE MEDICATIONS include: 1. Vitamin D3 2000 units p.o. daily. 2. Plavix 75 mg p.o. daily. 3. Colchicine 0.6 mg p.o. b.i.d. 4. Gabapentin 300 mg p.o. t.i.d. 5. Lisinopril 40 mg p.o. daily. 6. Senna 8.6 mg p.o. b.i.d. p.r.n. for constipation. 7. Tamsulosin 0.4 mg p.o. daily. 8. Norvasc 10 mg daily. 9. Hydralazine 50 mg p.o. q.6 hourly. 10. Hydralazine 100 mg p.o. q.6 hourly. 11. Spring 10 1 tablet p.o. q.4 hourly p.r.n. for pain. 12. Lipitor 20 mg p.o. at bedtime. 13. Hydrochlorothiazide 50 mg p.o. daily. Patient will be discharged home in stable condition. Activity as tolerated. Follow-up with Dr. Lona Marie in primary care physician. Home with self-care. Heart healthy diet. Activity as tolerated.
--- NOTE | 2016-08-27 08:39 | EEG ---
DATE OF SERVICE: 08/23/2016 REASON FOR TESTING: Syncope. AGE: 61Y DESCRIPTION OF THE PROCEDURE: This EEG was performed using a 21-channel digital electroencephalograph, following the international 10 to 20 system. DESCRIPTION OF THE RECORDING: From the beginning of the tracing, and with the patient's eyes closed, the background rhythm was mostly consisting of 9 to 10 Hz alpha frequency in the posterior occipital leads. No obvious asymmetry is seen. Occasional muscle artifacts and movement artifacts are seen. Photic stimulation was performed with a minimal driving response seen. No pathological waves were elicited. Hyperventilation was not performed. The patient remains awake throughout the tracing. No epileptiform discharges were seen. His EKG lead showed a bradycardic rate with a normal rhythm. INTERPRETATION: This awake EEG can be considered within normal limits. There was no asymmetry seen. No epileptiform discharges were noticed. The absence of epileptiform discharges does not rule out the diagnosis of epilepsy, therefore, clinical correlation is recommended. Of note, his EKG lead showed a bradycardic rate with a normal rhythm.
== END 2016-08-23 17:19 | disposition home or self-care (01) ==
LOC: EC 02:51 → 6SEL 05:32
PROVIDERS: ADMIT Hospitalist; ATTEND Hospitalist
DX: R55 Syncope and collapse (principal); R00.1 Bradycardia, unspecified; G47.33 Obstructive sleep apnea (adult) (pediatric); M10.9 Gout, unspecified; K21.9 Gastro-esophageal reflux disease without esophagitis; I69.334 Monoplegia of upper limb following cerebral infarction affecting left non-dominant side; E78.5 Hyperlipidemia, unspecified; I13.0 Hypertensive heart and chronic kidney disease with heart failure and stage 1 through stage 4 chronic kidney disease, or unspecified chronic kidney disease; N18.3 Chronic kidney disease, stage 3 (moderate); M19.90 Unspecified osteoarthritis, unspecified site; I50.9 Heart failure, unspecified; D69.6 Thrombocytopenia, unspecified; Z80.1 Family history of malignant neoplasm of trachea, bronchus and lung; Z88.5 Allergy status to narcotic agent; Z79.02 Long term (current) use of antithrombotics/antiplatelets; Z91.19 Patient's noncompliance with other medical treatment and regimen; Z87.891 Personal history of nicotine dependence; Z82.49 Family history of ischemic heart disease and other diseases of the circulatory system; Z79.899 Other long term (current) drug therapy
CPT/HCPCS: 99285 ×2; 96360 ×2; 96361 ×5; 36415; 95819; 93005; 93017; 93350; 97161; 97165; 85379; 80061; 80053; 83605; 84443; 84484; 85025; 81001; 83090; 71020; 93880; 70450; 78582; G0378 ×2; A9540; A9567; J1250; J1644; J1650; J0461

== ENCOUNTER 2016-10-21 18:37 | Inpatient (IN) | payer OTHER ==
[2016-10-21] MEDS ORDERED: SODIUM CHLORIDE 0.9% 1,000 ML IV STA (19:15)
--- NOTE | 2016-10-21 19:20 | ED ---
General Adult HPI - General Chief complaint: Neuro Symptoms/Deficit Stated complaint: POSS CVA Time Seen by Provider: 10/21/16 19:09 Source: patient, RN notes reviewed Mode of arrival: wheelchair Limitations: no limitations - History of Present Illness Initial comments: Patient is a pleasant 61-year-old male presenting to the emergency department with concerns for leg weakness and facial paresthesia. Onset was yesterday. Symptoms have been persistent since that time. Patient feels his left side of his face feels numb. Patient has left arm weakness however this is chronic and unchanged from normal. Patient feels like both of his legs are somewhat weak. Patient had similar problems previously associated with stroke. - Related Data Home Medications Medication Instructions Recorded Confirmed Cholecalciferol [Vitamin D3] 2,000 unit PO DAILY 01/19/16 10/21/16 Clopidogrel [Plavix] 75 mg PO DAILY 01/19/16 10/21/16 Colchicine [Colcrys] 0.6 mg PO BID 01/19/16 10/21/16 Gabapentin [Neurontin] 300 mg PO TID 01/19/16 10/21/16 Lisinopril 40 mg PO DAILY 01/19/16 10/21/16 Sennosides [Senna] 8.6 mg PO DAILY PRN 01/19/16 10/21/16 Tamsulosin HCl [Flomax] 0.4 mg PO DAILY 01/19/16 10/21/16 amLODIPine [Norvasc] 10 mg PO DAILY 07/23/16 10/21/16 hydrALAZINE HCL [Apresoline] 50 mg PO Q6H 07/23/16 10/21/16 hydrALAZINE HCL [Apresoline] 100 mg PO Q6H 07/23/16 10/21/16 HYDROcodone/APAP 10-325MG [[place] 1 tab PO Q4HR PRN 08/22/16 10/21/16 10-325] Carvedilol [Coreg] 12.5 mg PO BID 10/21/16 10/21/16 Allergies Allergy/AdvReac Type Severity Reaction Status Date / Time morphine Allergy Anaphylaxis Verified 10/21/16 20:05 Review of Systems ROS Statement: Those systems with pertinent positive or pertinent negative responses have been documented in the HPI. ROS Other: All systems not noted in ROS Statement are negative. Constitutional: Denies: fever Eyes: Denies: eye pain ENT: Denies: ear pain Respiratory: Denies: cough Cardiovascular: Denies: chest pain Endocrine: Denies: fatigue Gastrointestinal: Denies: abdominal pain Genitourinary: Denies: urgency Musculoskeletal: Denies: back pain Skin: Denies: rash Neurological: Reports: weakness, paresthesias. Denies: confusion Past Medical History Past Medical History: Heart Failure, CVA/TIA, GERD/Reflux, Hypertension, Prostate Disorder, Renal Disease, Sleep Apnea/CPAP/BIPAP Additional Past Medical History / Comment(s): CVA with slight L arm, L leg weakness, TIA, CKD stage III, problem with his "taste buds"- nothing tastes good , gout bilateral feet and wrists, BPH, DJD, BAN- DOES'NT USE CPAP MACHINE History of Any Multi-Drug Resistant Organisms: None Reported Past Surgical History: Orthopedic Surgery Additional Past Surgical History / Comment(s): LT KNEE repair SX, RT WRIST BONE GRAFT, RT EAR SX(PATCH) , EGD, COLONOSOCPY Past Anesthesia/Blood Transfusion Reactions: No Reported Reaction Additional Past Anesthesia/Blood Transfusion Reaction / Comment(s): CLAUSTERPHOBIA Past Psychological History: No Psychological Hx Reported Additional Psychological History / Comment(s): Pt resides with significant other. He uses a cane prn. He drives. Smoking Status: Former smoker Past Alcohol Use History: None Reported Additional Past Alcohol Use History / Comment(s): STARTED SMOKING AT AGE 14 SMOKED ON AND OFF, QUIT 2011 Past Drug Use History: None Reported - Past Family History Mother Family Medical History: Hypertension Father Family Medical History: Cancer Additional Family Medical History / Comment(s): LUNG CANCER General Exam Limitations: no limitations General appearance: alert, in no apparent distress Head exam: Present: atraumatic Eye exam: Present: normal appearance, PERRL, EOMI ENT exam: Present: normal oropharynx Neck exam: Present: normal inspection Respiratory exam: Present: normal lung sounds bilaterally Cardiovascular Exam: Present: regular rate, normal rhythm GI/Abdominal exam: Present: soft. Absent: tenderness Extremities exam: Present: normal inspection Neurological exam: Present: alert Expanded Neurological exam: Present: other (Mild left facial droop not affecting the forehead) Speech: Present: fluid speech Cranial nerves: EOM's Intact: Normal, Facial Sensation: Abnormal Left Sensory exam: Upper Extremity Light Touch: Abnormal Left (Chronic), Lower Extremity Light Touch: Normal Motor strength exam: RUE: 5, LUE: 3 (Chronic per patient), RLE: 4, LLE: 4 Eye Response: (4) open spontaneously Motor Response: (6) obeys commands Verbal Response: (5) oriented Psychiatric exam: Present: normal affect, normal mood Skin exam: Present: normal color Course Vital Signs 10/21/16 10/21/16 10/21/16 18:38 19:44 20:03 Temperature 98.8 F Pulse Rate 58 L 56 L 53 L Respiratory 18 18 18 Rate Blood Pressure 156/93 171/99 153/97 O2 Sat by Pulse 97 97 97 Oximetry Medical Decision Making - Medical Decision Making Patient reexamined. Patient and family updated. Case discussed with Dr. Arrieta, who will admit for hospital call. Patient is not a TPA candidate secondary to onset was yesterday. - Lab Data Result diagrams: 10/21/16 19:16 10/21/16 19:16 Lab Results 10/21/16 10/21/16 10/21/16 Range/Units 19:16 19:16 19:16 WBC 5.1 (3.8-10.6) k/uL RBC 4.83 (4.30-5.90) m/uL Hgb 13.9 (13.0-17.5) gm/dL Hct 39.9 (39.0-53.0) % MCV 82.6 (80.0-100.0) fL MCH 28.7 (25.0-35.0) pg MCHC 34.8 (31.0-37.0) g/dL RDW 14.4 (11.5-15.5) % Plt Count 107 L (150-450) k/uL Neutrophils % 32 % Lymphocytes % 49 % Monocytes % 9 % Eosinophils % 7 % Basophils % 1 % Neutrophils # 1.6 (1.3-7.7) k/uL Lymphocytes # 2.5 (1.0-4.8) k/uL Monocytes # 0.5 (0-1.0) k/uL Eosinophils # 0.3 (0-0.7) k/uL Basophils # 0.0 (0-0.2) k/uL Sodium 143 (137-145) mmol/L Potassium 4.3 (3.5-5.1) mmol/L Chloride 106 (98-107) mmol/L Carbon Dioxide 26 (22-30) mmol/L Anion Gap 11 mmol/L BUN 15 (9-20) mg/dL Creatinine 1.80 H (0.66-1.25) mg/dL Est GFR (MDRD) Af Amer 47 (>60 ml/min/1.73 sqM) Est GFR (MDRD) Non-Af 39 (>60 ml/min/1.73 sqM) Glucose 119 H (74-99) mg/dL Calcium 9.6 (8.4-10.2) mg/dL Total Bilirubin 0.7 (0.2-1.3) mg/dL AST 50 (17-59) U/L ALT 57 (21-72) U/L Alkaline Phosphatase 59 (38-126) U/L Total Creatine Kinase 151 (55-170) U/L Total Protein 6.9 (6.3-8.2) g/dL Albumin 3.5 (3.5-5.0) g/dL Disposition Clinical Impression: CVA (cerebral vascular accident) Disposition: ADMITTED IP TO THIS HOSP Referrals: Lona Marie MD [Primary Care Provider] - 1-2 days Decision Time: 20:12
[2016-10-21 19:44] LABS: Basophils % (A) 1 %; CH 28.8; Eosinophils # (A) 0.3 k/uL (0-0.7); Eosinophils % (A) 7 %; HCT 39.9 % (39.0-53.0); HDW 2.61; HGB 13.9 gm/dL (13.0-17.5); Luc # (Auto) 0.17; Luc % (Auto) 3; Lymphocytes # (A) 2.5 k/uL (1.0-4.8); Lymphocytes % (A) 49 %; MCH 28.7 pg (25.0-35.0); MCHC 34.8 g/dL (31.0-37.0); MCV 82.6 fL (80.0-100.0); Mean Platelet Volume 9.7; Monocytes # (A) 0.5 k/uL (0-1.0); Monocytes % (A) 9 %; Neutrophils # (A) 1.6 k/uL (1.3-7.7); Neutrophils % (A) 32 %; RBC 4.83 m/uL (4.30-5.90); RDW 14.4 % (11.5-15.5); WBC 5.1 k/uL (3.8-10.6); WBC (Perox) 4.56
--- NOTE | 2016-10-21 19:55 | CT ---
EXAMINATION TYPE: CT brain wo con DATE OF EXAM: 10/21/2016 7:44 PM COMPARISON: 08/22/2016 HISTORY: Left sided weakness. hx of stroke. CT DLP: 1129 mGycm Automated exposure control for dose reduction was used. FINDINGS: There is patchy hypodensity in the periventricular white matter. This is worse in the right cerebral hemisphere. There is no mass effect. There is a 1 cm lacunar infarct at the genu of right internal ca psule. There is no evidence of intracranial hemorrhage. The calvarium is intact. There are small lacu darren infarcts in the left caudate nucleus. IMPRESSION: Chronic small vessel ischemia. Is the same or slightly worse than old CT scan. No hemorrhage. There i s ethmoid mild sinusitis similar to old exam.
[2016-10-21 20:04] LABS: Calcium 9.6 mg/dL (8.4-10.2); Potassium 4.3 mmol/L (3.5-5.1); Total Bilirubin 0.7 mg/dL (0.2-1.3); Total Protein 6.9 g/dL (6.3-8.2)
[2016-10-21] MEDS ORDERED: ASPIRIN 325 MG TAB PO STA (20:12)
[2016-10-21 20:14] LABS: Creatine Kinase MB 0.9 ng/mL (0.0-2.4); Troponin I 0.017 ng/mL (0.000-0.034)
[2016-10-21 20:17] LABS: INR 1.1 (<1.1); Partial Thromboplastin Time 22.3 sec (22.0-30.0); Prothrombin Time 11.2 sec (9.0-12.0)
--- NOTE | 2016-10-21 20:31 | XR ---
EXAMINATION TYPE: XR chest 2V DATE OF EXAM: 10/21/2016 8:15 PM COMPARISON: 08/22/2016 HISTORY: Cough TECHNIQUE: Frontal and lateral views of the chest are obtained. FINDINGS: Heart size is normal. Thoracic aorta is atherosclerotic and tortuous. There are no hilar m asses. There is no pleural effusion. There is mild linear density in the right middle lobe. IMPRESSION: Atheromatous aorta. There is probably mild aneurysm of the aortic arch without change co mpared to old exam. Mild subsegmental atelectasis in the right middle lobe.
[2016-10-21] MEDS: SODIUM CHLORIDE 0.9% 1,000 ML IV SCH (20:39)
[2016-10-21] MEDS ORDERED: SENNOSIDES 8.6 MG TAB PO PRN (22:59)
[2016-10-21] MEDS ORDERED: HYDROcodone/APAP 10-325MG 1 EACH TAB PO PRN (22:59)
[2016-10-21] MEDS ORDERED: hydrALAZINE HCL 50 MG TAB PO SCH ×2 (23:00)
[2016-10-21] MEDS ORDERED: TEMAZEPAM 15 MG CAP PO PRN (23:05)
[2016-10-21] MEDS ORDERED: ALPRAZolam 0.25 MG TAB PO PRN (23:05)
[2016-10-21] MEDS: hydrALAZINE HCL 50 MG TAB PO SCH (23:46)
[2016-10-21] MEDS: COLCHICINE 0.6 MG TAB PO SCH (23:46)
[2016-10-21] MEDS: GABAPENTIN 300 MG CAP PO SCH (23:46)
[2016-10-21] MEDS: CARVEDILOL 12.5 MG TAB PO SCH (23:46)
[2016-10-22] MEDS ORDERED: hydrALAZINE HCL 50 MG TAB PO SCH (01:00)
[2016-10-22] MEDS: hydrALAZINE HCL 50 MG TAB PO SCH ×3 (06:25→17:40)
[2016-10-22] MEDS: SODIUM CHLORIDE 0.9% 1,000 ML IV SCH ×2 (06:26→15:44)
[2016-10-22 06:50] LABS: Basophils # (A) 0.1 k/uL (0-0.2); Basophils % (A) 1 %; CH 28.3; CHCM 33.6; Eosinophils # (A) 0.4 k/uL (0-0.7); Eosinophils % (A) 8 %; HCT 37.8 % (39.0-53.0); HDW 2.39; HGB 12.5 gm/dL (13.0-17.5); Luc # (Auto) 0.15; Luc % (Auto) 4; Lymphocytes # (A) 2.2 k/uL (1.0-4.8); Lymphocytes % (A) 50 %; MCV 84.7 fL (80.0-100.0); Mean Platelet Volume 8.9; Monocytes # (A) 0.4 k/uL (0-1.0); Monocytes % (A) 9 %; Neutrophils # (A) 1.2 k/uL (1.3-7.7); Neutrophils % (A) 28 %; RBC 4.46 m/uL (4.30-5.90); RDW 14.4 % (11.5-15.5); WBC 4.4 k/uL (3.8-10.6); WBC (Perox) 4.28
[2016-10-22 07:17] LABS: Glucose,Whole Blood 119 mg/dL (75-99)
[2016-10-22 07:40] LABS: Calcium 8.6 mg/dL (8.4-10.2); Potassium 3.4 mmol/L (3.5-5.1)
[2016-10-22] MEDS: ASPIRIN 325 MG TAB PO SCH (08:51)
[2016-10-22] MEDS: COLCHICINE 0.6 MG TAB PO SCH ×2 (08:51→20:33)
[2016-10-22] MEDS: CARVEDILOL 12.5 MG TAB PO SCH ×2 (08:51→20:33)
[2016-10-22] MEDS: CLOPIDOGREL 75 MG TAB PO SCH (08:51)
[2016-10-22] MEDS: TAMSULOSIN 0.4 MG CAP.ER.24H PO SCH (08:52)
[2016-10-22] MEDS: CHOLECALCIFEROL 1,000 UNIT TAB PO SCH (08:52)
[2016-10-22] MEDS: ATORVASTATIN 20 MG TAB PO SCH (08:52)
[2016-10-22] MEDS: GABAPENTIN 300 MG CAP PO SCH ×3 (08:53→20:34)
[2016-10-22] MEDS: HEPARIN SODIUM,PORCINE 5,000 UNIT/ML 1 ML VIAL SQ SCH ×2 (08:53→20:33)
[2016-10-22] MEDS: LISINOPRIL 20 MG TAB PO SCH ×2 (08:54→11:33)
--- NOTE | 2016-10-22 09:45 | HP ---
DATE OF ADMISSION: The chief complaints are numbness of the left side of the face and also weakness left foot. HISTORY OF PRESENT ILLNESS: This 61-year-old gentleman with a past medical history of CHF, history of CVA, TIA, history of hypertension, history of sleep apnea, history of chronic kidney disease, history of BPH, DJD, obstructive sleep apnea being followed by Dr. Fabián Pichardo in the [place] area was complaining of left-sided facial numbness and as well as left-sided weakness. Patient came to [facility], admitted for further evaluation and treatment. The onset of yesterday's symptoms at breakfast and the patient deemed not a candidate for TPA this time. The CAT scan of the brain was done, which showed multiple findings such as patchy hyperdensity in the periventricular white matter and worse in the right cerebral hemisphere and as well as 1 cm lacunar infarct in the genu of the right internal capsule. Please note that after the stroke, the patient has some persistent weakness mainly of the left hand. There is no history of any fever, rigor, or chills. No history of any headache, loss of consciousness or seizures. PAST MEDICAL HISTORY: History of CVA, TIA, history of CHF, history of hypertension, history of renal disease, sleep apnea. The medications prior to admission include, home medications are: 1. [place] 10 mg t.i.d. p.r.n. 2. Colcrys 0.6 mg p.o. b.i.d. 3. Coreg 25 mg p.o. b.i.d. 4. Lipitor 20 mg daily. 5. Neurontin 300 mg daily. 6. Plavix 75 mg p.o. daily. v 7. Vitamin D3 two thousand daily. 8. Apresoline 100 mg q.6 p.r.n. 9. Norvasc 10 mg p.o. daily. 10. Flomax 0.4 daily. 11. Senna 8.6 daily p.r.n. 12. Lisinopril 40 mg daily. 13. Apresoline 50 mg q.6. Allergies are MORPHINE. FAMILY HISTORY: History of hypertension and cancer. SOCIAL HISTORY: History of smoking, no history of current smoking or alcohol intake. REVIEW OF SYSTEMS: ENT: No diminishing hearing. No diminished vision. CARDIOVASCULAR SYSTEM: No angina, no palpitation. RESPIRATORY: No cough. GI: No nausea. : No dysuria. NERVOUS SYSTEM: As mentioned earlier. ALLERGY/IMMUNOLOGY: No asthma or hayfever. MUSCULOSKELETAL: As mentioned earlier. RHEUMATOLOGY/HEMATOLOGY; No history of anemia. ENDOCRINE: No history of diabetes or hypothyroidism. CONSTITUTIONAL: As mentioned earlier. DERMATOLOGY: Negative. RHEUMATOLOGY: Negative. PSYCHIATRY: As mentioned earlier. PHYSICAL EXAM: Patient is alert and oriented x3. Pulse is 53, blood pressure 158/107, respirations 18, temperature is 97.6, pulse ox 99% on 2 L. HEENT: Conjunctivae normal, oral mucosa moist. NECK: No jugular venous distention. No carotid bruit. No lymph node enlargement. CARDIOVASCULAR SYSTEM: S1, S2, muffled, no S3, no S4. RESPIRATORY: Breath sounds diminished at the bases, no rhonchi, no crackles. ABDOMEN: Soft, nontender, no mass palpable. LEGS: No edema, no swelling. NERVOUS SYSTEM: Higher functions as mentioned. Cranial nerves, grossly intact except minimal facial asymmetry in the lower part of the left side of the face. Otherwise, moves all 4 limbs. Significant weakness in the left upper arm present grade 3 to 4 power. Minimal incoordination of the left upper limb. Otherwise, minimal weakness of the left lower limb about 4+ power. Sensation of left side diminished. LYMPHATICS: No lymph node enlargement in the neck, axillae or groin. SKIN: No ulcer, rash, bleeding. Labs are WBC 5.3, hemoglobin is 13.9, platelets 107, creatinine 1.8. ASSESSMENT: 1. Numbness of the left side and as well as left-sided weakness and leg weakness, possible acute transient ischemic attack, rule out acute stroke. 2. Thrombocytopenia. 3. Increased creatinine with chronic kidney disease stage III. 4. Congestive heart failure, ejection fraction unknown. 5. History of cerebrovascular accident, transient ischemic attack with right internal capsule stroke causing the left-sided weakness. 6. History of gastroesophageal reflux disease. 7. History of hypertension. 8. History of benign prostatic hypertrophy. 9. History of obstructive sleep apnea. 10. History of degenerative joint disease. 11. History of nicotine dependence. 12. History of claustrophobia. RECOMMENDATION AND DISCUSSION: In this 61-year-old gentleman who presented with multiple complex medical issues, will monitor the patient closely. Continue with the current medications and symptomatic treatment. I would recommend to continue with antiplatelet agents. Neurovascular work-up. The patient had a carotid Doppler in July of this year which showed no hemodynamically significant stenosis. A dobutamine stress echo was also done recently which did not show any stress-induced ischemia. A 2-D echo with Doppler showed ejection fraction of about 55% to 60%. Will continue to monitor. See orders for further details and DVT prophylaxis. Further recommendations to follow. Continue the home medications. Discussed with staff. Neurology consultation. Permissive hypertension. MTDD
[2016-10-22 10:35] VITALS: BMI 33.8
[2016-10-22] MEDS ORDERED: POTASSIUM CHLORIDE ER 20 MEQ TAB.ER PO STA (10:59)
--- NOTE | 2016-10-22 11:06 | ECHOF ---
Referral Reason:Thrombus MEASUREMENTS -------- HEIGHT: 175.3 cm WEIGHT: 104.3 kg BP: 145/86 IVSd: 1.7 cm (0.6 - 1.1) LVIDd: 3.8 cm (3.9 - 5.3) LVPWd: 2.0 cm (0.6 - 1.1) IVSs: 2.7 cm LVIDs: 1.7 cm LVPWs: 2.6 cm Ao Diam: 3.3 cm (2.0 - 3.7) AV Cusp: 2.4 cm (1.5 - 2.6) LA Diam: 3.9 cm (2.7 - 3.8) MV EXCURSION: 18.048 mm (> 18.000) MV EF SLOPE: 88 mm/s (70 - 150) EPSS: 0.4 cm MV E Otto: 0.68 m/s MV DecT: 351 ms MV A Otto: 0.56 m/s MV E/A Ratio: 1.21 AR PHT: 366 ms RAP: 5.00 mmHg RVSP: 11.56 mmHg FINDINGS -------- Sinus rhythm. This was a technically good study. There is severe concentric left ventricular hypertrophy. Overall left ventricular systolic function is normal with, an EF between 55 - 60 %. The right ventricle is normal in size and function. The left atrium is normal in size. The right atrium is normal in size. Aortic valve is trileaflet and is mildly thickened. There is mild aortic regurgitation. The mitral valve leaflets are mildly thickened. Mild mitral regurgitation is present. Mild tricuspid regurgitation present. The right ventricular systolic pressure, as measured by Doppler, is 11.56mmHg. Trace/mild (physiologic) pulmonic regurgitation. The aortic root size is normal. There is a trivial pericardial effusion present. CONCLUSIONS -------- 1. Sinus rhythm. 2. The mitral valve leaflets are mildly thickened. 3. Mild mitral regurgitation is present. 4. Mild tricuspid regurgitation present. 5. The right ventricular systolic pressure, as measured by Doppler, is 11.56mmHg. 6. Trace/mild (physiologic) pulmonic regurgitation. 7. The aortic root size is normal. 8. There is a trivial pericardial effusion present. 9. This was a technically good study. 10. There is severe concentric left ventricular hypertrophy. 11. Overall left ventricular systolic function is normal with, an EF between 55 - 60 %. 12. The right ventricle is normal in size and function. 13. The left atrium is normal in size. 14. The right atrium is normal in size. 15. Aortic valve is trileaflet and is mildly thickened. 16. There is mild aortic regurgitation. STONE GLUER: Jonna Bowman RDCS
[2016-10-22] MEDS: amLODIPine 10 MG TAB PO SCH (13:20)
--- NOTE | 2016-10-22 18:41 | P.CNNES ---
History of Present Illness Consult date: 10/22/16 Reason for Consult: Patient with left sided numbness and weakness and possible TIA vs. Stroke. History of Present Illness: This patient is a 61-year-old right-handed -[place] male who was admitted to hospital today with symptoms of left leg weakness and numbness involving the left side of the face. Patient states that his symptoms began early yesterday at home. He noted some numbness initially involving the left side of the face. He states that this numbness spread to include the entire lip region bilaterally. At about the same time he was noticing weakness in his left leg. He has a history of a previous stroke which has left him with residual left-sided motor weakness. He does ambulate with the use of a cane at home. He states that he suddenly felt weaker in the left leg as well as having numbness on the left side of the face. The symptoms lasted for approximately 6- 8 hours in duration and gradually seemed to subside. He states the facial numbness is gone as well as the left leg weakness. The patient was recently admitted to Hospital on 08/22/2016 for a syncopal episode. He underwent a carotid Doppler ultrasound which revealed no significant carotid artery stenosis. The patient states that he does take Plavix on a regular basis for secondary stroke prevention. He suffered a stroke in 2013 with residual left- sided hemiparesis. As noted his symptoms of weakness on his left leg was new yesterday and this was his reason for coming to the emergency room. Patient was seen in the ER and was sent for a computed tomography scan of the brain. CAT scan of the brain revealed chronic small vessel ischemia slightly more progressed compared to previous study. There was no evidence of acute stroke or hemorrhage. Patient states he does take his Plavix on a regular basis. He has had difficulty with uncontrolled hypertension off and on. He is on multiple antihypertensive medications. His blood pressure continues to be slightly elevated on admission. The patient is now admitted and neurology has been consulted for further evaluation and recommendations. Review of Systems Constitutional: Denies chills, Denies fever Eyes: denies blurred vision, denies pain Ears, nose, mouth and throat: Denies headache, Denies sore throat Cardiovascular: Denies chest pain, Denies shortness of breath Respiratory: Denies cough Gastrointestinal: Denies abdominal pain, Denies diarrhea, Denies nausea, Denies vomiting Musculoskeletal: Reports muscle weakness, Denies myalgias Integumentary: Denies pruritus, Denies rash Neurological: Reports balance difficulties, Reports paresthesias, Denies numbness, Denies weakness Psychiatric: Denies anxiety, Denies depression Endocrine: Denies fatigue, Denies weight change Past Medical History Past Medical History: Heart Failure, CVA/TIA, GERD/Reflux, Hypertension, Prostate Disorder, Renal Disease, Sleep Apnea/CPAP/BIPAP Additional Past Medical History / Comment(s): CVA with slight L arm, L leg weakness, TIA, CKD stage III, problem with his "taste buds"- nothing tastes good , gout bilateral feet and wrists, BPH, DJD, BAN- DOES'NT USE CPAP MACHINE History of Any Multi-Drug Resistant Organisms: None Reported Past Surgical History: Orthopedic Surgery Additional Past Surgical History / Comment(s): LT KNEE repair SX, RT WRIST BONE GRAFT, RT EAR SX(PATCH) , EGD, COLONOSOCPY Past Anesthesia/Blood Transfusion Reactions: No Reported Reaction Additional Past Anesthesia/Blood Transfusion Reaction / Comment(s): CLAUSTERPHOBIA Past Psychological History: No Psychological Hx Reported Additional Psychological History / Comment(s): Pt resides with significant other. He uses a cane prn. He drives. Smoking Status: Former smoker Past Alcohol Use History: None Reported Additional Past Alcohol Use History / Comment(s): STARTED SMOKING AT AGE 14 SMOKED ON AND OFF, QUIT 2011 Past Drug Use History: None Reported - Past Family History Mother Family Medical History: Hypertension Father Family Medical History: Cancer Additional Family Medical History / Comment(s): LUNG CANCER Medications and Allergies Home Medications Medication Instructions Recorded Confirmed Type Cholecalciferol [Vitamin D3] 2,000 unit PO DAILY 01/19/16 10/21/16 History Clopidogrel [Plavix] 75 mg PO DAILY 01/19/16 10/21/16 History Colchicine [Colcrys] 0.6 mg PO DAILY 01/19/16 10/21/16 History Gabapentin [Neurontin] 300 mg PO TID 01/19/16 10/21/16 History Lisinopril 40 mg PO DAILY 01/19/16 10/21/16 History Sennosides [Senna] 8.6 mg PO DAILY PRN 01/19/16 10/21/16 History Tamsulosin HCl [Flomax] 0.4 mg PO DAILY 01/19/16 10/21/16 History amLODIPine [Norvasc] 10 mg PO DAILY 07/23/16 10/21/16 History hydrALAZINE HCL [Apresoline] 50 mg PO Q6H 07/23/16 10/21/16 History hydrALAZINE HCL [Apresoline] 100 mg PO Q6H 07/23/16 10/21/16 History HYDROcodone/APAP 10-325MG [[place] 1 tab PO TID PRN 08/22/16 10/21/16 History 10-325] Atorvastatin [Lipitor] 20 mg PO DAILY 10/21/16 10/21/16 History Carvedilol [Coreg] 25 mg PO BID 10/21/16 10/21/16 History Allergies Allergy/AdvReac Type Severity Reaction Status Date / Time morphine Allergy Anaphylaxis Verified 10/21/16 20:05 Physical Examination - Vital Signs Vital Signs: Vital Signs Temp Pulse Pulse Resp BP BP BP 10/22/16 15:40 98.4 F 62 20 176/101 10/22/16 11:30 98 F 54 L 16 157/99 10/22/16 08:44 98 F 57 L 16 145/86 10/22/16 04:00 98.9 F 56 L 18 153/96 10/22/16 00:00 98.9 F 55 L 18 158/88 10/21/16 20:38 98.5 F 53 L 18 180/99 10/21/16 20:37 97.6 F 53 L 18 158/107 10/21/16 20:03 53 L 18 153/97 10/21/16 19:44 56 L 18 171/99 10/21/16 18:38 98.8 F 58 L 18 156/93 Pulse Ox 10/22/16 15:40 98 10/22/16 11:30 97 10/22/16 08:44 97 10/22/16 04:00 97 10/22/16 00:00 98 10/21/16 20:38 10/21/16 20:37 99 10/21/16 20:03 97 10/21/16 19:44 97 10/21/16 18:38 97 Intake and Output 10/22/16 10/22/16 10/22/16 06:59 14:59 22:59 Intake Total 1250 Output Total 250 200 Balance -250 1250 -200 Intake: IV 800 Sodium Chloride 0.9% 1, 800 000 ml @ 100 mls/hr IV . Q10H [facility] Rx#:[id number] Oral 450 Output: Urine 250 200 Other: Voiding Method Toilet Toilet Toilet Urinal Urinal # Voids 1 Weight 103.9 kg 103.9 kg Patient Weight 10/23/16 06:59 Weight 103.9 kg - Constitutional General appearance: average body habitus, cooperative - EENT EENT: PERRL, mucous membranes moist - Respiratory Respiratory: lungs clear, normal breath sounds - Cardiovascular Cardiovascular: regular rate, normal S1, normal S2 Extremities: no peripheral edema bilaterally - Gastrointestinal Gastrointestinal: normoactive bowel sounds - Integumentary Integumentary: normal - Neurologic Cranial nerve examination: PERRL, EOMI, VFF, V1/V2/V3 grossly intact, tongue midline, intact gag reflex, intact corneal reflex, normal palatal elevation Speech examination: motor aphasia Sensorimotor examination: hemiparesis Motor examination - right side: 5/5: biceps, triceps, wrist flexion, wrist extension, network liaison, hip flexors, knee extensors, dorsiflexion, toe extension (EHL) , plantarflexion Motor examination - left side: 3/5: biceps, triceps, wrist flexion, wrist extension, network liaison, hip flexors, knee extensors, dorsiflexion, toe extension (EHL) , plantarflexion Detailed sensory examination: intact Reflex and gait examination: intact Reflexes: 1+: ankle, bicep, knee, tricep - Musculoskeletal Musculoskeletal: no pain - Psychiatric Psychiatric: mood/affect appropriate, cooperative Results - Laboratory Findings CBC and BMP: 10/22/16 06:17 10/22/16 06:17 Abnormal Lab Findings: Abnormal Labs 10/21/16 10/21/16 10/21/16 19:06 19:16 19:16 Hgb Hct Plt Count 107 L Neutrophils # Potassium Chloride Creatinine 1.80 H Glucose 119 H POC Glucose (mg/dL) 119 H HDL Cholesterol 10/22/16 10/22/16 06:17 06:17 Hgb 12.5 L Hct 37.8 L Plt Count 104 L Neutrophils # 1.2 L Potassium 3.4 L Chloride 108 H Creatinine 1.74 H Glucose POC Glucose (mg/dL) HDL Cholesterol 24 L Assessment and Plan (1) Acute right arterial ischemic stroke, MCA (middle cerebral artery) Status: Acute Code(s): I63.511 - CEREB INFRC D/T UNSP OCCLS OR STENOS OF RIGHT MID CEREB ART (2) TIA (transient ischemic attack) Status: Acute Code(s): G45.9 - TRANSIENT CEREBRAL ISCHEMIC ATTACK, UNSPECIFIED (3) HTN (hypertension) Status: Chronic Code(s): I10 - ESSENTIAL (PRIMARY) HYPERTENSION (4) History of CVA (cerebrovascular accident) Status: Chronic Code(s): Z86.73 - PRSNL HX OF TIA (TIA), AND CEREB INFRC W/O RESID DEFICITS Plan: This patient is a 61-year-old male admitted with sudden onset of left leg weakness and numbness involving the left side of the face. Symptoms came on suddenly on the day of his admission. Symptoms have gradually resolved over appeared of 6-8 hours. He was brought into the emergency room and underwent a computed tomography scan of the brain results of which are noted above. Patient complained of numbness involving the left face and perioral region. He does have history of previous stroke which she suffered in 2013. His clinical symptoms suggest possibility of new area of infarction involving the right hemisphere and/or brainstem region. We are recommending an MRI of the brain for further evaluation. He recently had a carotid Doppler ultrasound done on which was normal with no evidence of carotid artery stenosis. Patient should continue on Plavix +1 aspirin daily for secondary stroke prevention. Recommend physical therapy consultation as well. His overall prognosis at this time remains very guarded. We will continue close neurological follow-up with the patient during this admission. Time with Patient: Greater than 30
--- NOTE | 2016-10-22 19:35 | PN ---
DATE OF SERVICE: 10/22/2016 This 61-year-old gentleman who was admitted with numbness on the left side of the face and the left leg is being closely monitored. TIA is suspected. The patient did have a significant stroke in the recent past. A 2-D echo Doppler was done by Cardiology which showed ejection fraction 55% to 60%, severe concentric hypertrophy. No chest pain. No palpitation. No fever. On exam, mild dysarthria. Pulse 62, blood pressure 176/101, respiration 20, temperature 98.4, pulse ox 98% on room air. HEENT: Conjunctivae normal. NECK: No jugular venous distention. CARDIOVASCULAR SYSTEM: S1, S2 muffled. RESPIRATORY SYSTEM: Breath sounds diminished at the bases. No rhonchi. No crackles. ABDOMEN: Soft, non-tender. LEGS: No edema. No swelling. NERVOUS SYSTEM: Minimal weakness on left side present, left upper limb more than the lower limb; close to baseline, according to the family. Gait dysfunction present. LAB INVESTIGATIONS: WBC 4.5, hemoglobin 12.5, platelets 104. Potassium 3.4. ASSESSMENT: 1. Numbness of the left side of the face as well as left-sided weakness and possible acute transient ischemic attack. 2. Thrombocytopenia. 3. Increased creatinine with chronic kidney disease, stage III. 4. Gait dysfunction. 5. Congestive heart failure with chronic diastolic dysfunction; ejection fraction 55% to 60%. 6. History of cerebrovascular incident with right internal capsular lacunar stroke causing left-sided weakness. 7. History of gastroesophageal reflux disease. 8. Essential hypertension. 9. Benign prostatic hypertrophy. 10. History of obstructive sleep apnea. 11. History of degenerative joint disease. 12. History of nicotine dependence. 13. History of claustrophobia. 14. FULL CODE. 15. Obesity with body mass index of 33.8. RECOMMENDATIONS AND DISCUSSION: In this 61-year-old gentleman who presented with multiple complex medical issues, we will monitor the patient closely, continue the antiplatelet agents, continue with further workup. Await neurology consultation, PT and OT evaluation. Increase ambulation. Guarded prognosis. Further recommendations to follow.
[2016-10-23] MEDS: hydrALAZINE HCL 50 MG TAB PO SCH ×3 (04:31→12:17)
[2016-10-23] MEDS: SODIUM CHLORIDE 0.9% 1,000 ML IV SCH (04:32)
[2016-10-23 06:41] LABS: Basophils % (A) 1 %; CH 28.6; CHCM 33.5; Eosinophils # (A) 0.4 k/uL (0-0.7); Eosinophils % (A) 8 %; HCT 40.2 % (39.0-53.0); HDW 2.38; HGB 13.3 gm/dL (13.0-17.5); Luc # (Auto) 0.16; Luc % (Auto) 4; Lymphocytes # (A) 1.9 k/uL (1.0-4.8); Lymphocytes % (A) 45 %; MCH 28.4 pg (25.0-35.0); MCHC 33.1 g/dL (31.0-37.0); MCV 85.7 fL (80.0-100.0); Mean Platelet Volume 9.1; Monocytes # (A) 0.4 k/uL (0-1.0); Monocytes % (A) 8 %; Neutrophils # (A) 1.4 k/uL (1.3-7.7); Neutrophils % (A) 34 %; RBC 4.69 m/uL (4.30-5.90); RDW 14.5 % (11.5-15.5); WBC 4.3 k/uL (3.8-10.6); WBC (Perox) 4.33
[2016-10-23 07:02] LABS: Anion Gap 8 mmol/L; Blood Urea Nitrogen 12 mg/dL (9-20); Calcium 8.8 mg/dL (8.4-10.2); Carbon Dioxide 25 mmol/L (22-30); Chloride 108 mmol/L (98-107); Glucose 93 mg/dL (74-99); Non-African American GFR(MDRD) 50 (>60 ml/min/1.73 sqM); Potassium 4.1 mmol/L (3.5-5.1); Sodium 141 mmol/L (137-145)
[2016-10-23] MEDS: CARVEDILOL 12.5 MG TAB PO SCH (09:54)
[2016-10-23] MEDS: CHOLECALCIFEROL 1,000 UNIT TAB PO SCH (09:54)
[2016-10-23] MEDS: ATORVASTATIN 20 MG TAB PO SCH (09:54)
[2016-10-23] MEDS: COLCHICINE 0.6 MG TAB PO SCH (09:54)
[2016-10-23] MEDS: ASPIRIN 325 MG TAB PO SCH (09:54)
[2016-10-23] MEDS: CLOPIDOGREL 75 MG TAB PO SCH (09:54)
[2016-10-23] MEDS: GABAPENTIN 300 MG CAP PO SCH (09:54)
[2016-10-23] MEDS: HEPARIN SODIUM,PORCINE 5,000 UNIT/ML 1 ML VIAL SQ SCH (09:55)
[2016-10-23] MEDS: TAMSULOSIN 0.4 MG CAP.ER.24H PO SCH (09:55)
[2016-10-23] MEDS: LISINOPRIL 20 MG TAB PO SCH (09:56)
[2016-10-23 11:31] VITALS: BP 141/88; PULSE 60; RESP 18; TEMP 97.5
[2016-10-23] MEDS: amLODIPine 10 MG TAB PO SCH (12:17)
--- NOTE | 2016-10-23 13:43 | MR ---
MRI brain without contrast HISTORY: Right hemispheric stroke Multiplanar multisequence imaging through the brain Correlation to CT brain September There is no restricted diffusion present. Cortical atrophy is again noted. Periventricular and subcor tical, juxtacortical white matter shows hyperintensity, both confluent and scattered on inversion rec overy and T2-weighted sequences which correlates with CT findings, and is compatible with chronic sma ll vessel ischemia. There are normal vascular flow voids. Inflammatory changes present in the ethmoid s and frontal sinus. Cerebellopontine angles, corpus callosum, pituitary, cervical medullary junction are normal. The orbits show symmetric appearance. There is no hemorrhage or hydrocephalus. IMPRESSION: Nonspecific white matter demyelination, correlate for hypertension, vasculitis, chronic s mall vessel ischemia, multiple sclerosis is not excluded.
--- NOTE | 2016-10-23 17:26 | P.PN ---
Subjective This patient is a 61-year-old male who was admitted to hospital with episode of TIA. Patient presented with left sided leg weakness and perioral numbness. He was admitted to hospital for further evaluation of recurrent stroke. He underwent a MRI of the brain today which was reviewed. MRI reveals nonspecific white matter changes and chronic ischemia. No evidence of acute stroke or hemorrhage. Patient is to continue on Plavix and aspirin for secondary stroke prevention. He is being considered for discharge home later today. He states his symptoms have resolved and he feels his left leg strength is back to normal. He denies any pain or all numbness today. Objective - Vital Signs Vital signs: Vital Signs Temp 97.5 F L 10/23/16 11:30 Pulse 60 10/23/16 11:30 Resp 18 10/23/16 11:30 BP 141/88 10/23/16 11:30 Pulse Ox 97 10/23/16 11:30 Intake & Output 10/22/16 10/23/16 10/23/16 18:59 06:59 18:59 Intake Total 1250 1040 460 Output Total 200 2350 Balance 1050 -1310 460 Weight 103.9 kg 105.4 kg Intake: IV 800 800 Sodium Chloride 0.9% 1, 800 800 000 ml @ 100 mls/hr IV . Q10H [facility] Rx#:[id number] Oral 450 240 460 Output: Urine 200 2350 Other: Voiding Method Toilet Toilet Toilet Urinal Urinal Urinal # Voids 1 1 1 # Bowel Movements 1 - Exam Physical examination: PHYSICAL EXAMINATION: Patient is resting comfortably in bed. VITAL SIGNS: Blood pressure is [141/88]. Heart rate is [60]. Respiration is [18] . Temperature is [97.5]. HEENT: Head is atraumatic, neck is supple, there were no carotid bruits. CHEST: Lungs are clear to auscultation and percussion. CARDIAC: S1, S2 normal rate and rhythm. There is no murmur. ABDOMEN: Soft and nontender. Bowel sounds are present. EXTREMITIES: There is no pedal edema. Peripheral pulses are present. Neurological examination: Patient's neurological examination is unchanged from yesterday. - Labs CBC & Chem 7: 10/23/16 06:03 10/23/16 06:03 Labs: Abnormal Lab Results - Last 24 Hours (Table) 10/23/16 10/23/16 Range/Units 06:03 06:03 Plt Count 107 L (150-450) k/uL Chloride 108 H (98-107) mmol/L Creatinine 1.45 H (0.66-1.25) mg/dL Assessment and Plan (1) Acute right arterial ischemic stroke, MCA (middle cerebral artery) Status: Acute Code(s): I63.511 - CEREB INFRC D/T UNSP OCCLS OR STENOS OF RIGHT MID CEREB ART (2) TIA (transient ischemic attack) Status: Acute Code(s): G45.9 - TRANSIENT CEREBRAL ISCHEMIC ATTACK, UNSPECIFIED (3) HTN (hypertension) Status: Chronic Code(s): I10 - ESSENTIAL (PRIMARY) HYPERTENSION (4) History of CVA (cerebrovascular accident) Status: Chronic Code(s): Z86.73 - PRSNL HX OF TIA (TIA), AND CEREB INFRC W/O RESID DEFICITS Plan: This patient is a 61-year-old male who is being evaluated for recent TIA episode. Patient presented with symptoms of left leg weakness and perioral numbness. There was concern he may have had some brainstem ischemia. He was sent for MRI of the brain today for further evaluation. MRI revealed nonspecific white matter ischemic changes. No evidence of acute stroke was noted on the MRI of the brain today. Patient's symptoms have improved and he feels he is back to baseline. He denies any perioral numbness this morning. He is being considered for discharge home. He is to continue on Plavix and aspirin for secondary stroke prevention. He may follow-up in the outpatient neurology clinic in 3-4 weeks. His overall prognosis at this time remains very guarded.
--- NOTE | 2016-10-24 06:11 | EEG ---
DATE OF SERVICE: 10/22/2016 INDICATIONS FOR EXAMINATION: This patient is a 61-year-old male being evaluated for left-sided weakness and perioral numbness. Patient with history of stroke and recurrent TIAs. AGE: 61Y EEG FINDINGS: A routine 21-channel, awake digital EEG recording was accomplished utilizing the 10 to 20 international system with bipolar and referential montages. The background activity in the most alert resting state consists of a low to medium amplitude, fairly well-developed and well-sustained 6 Hz activity over the posterior head regions. This posterior rhythm attenuates to eye opening. There is a small amount of low amplitude 18 to 20 Hz beta activity seen maximally over the anterior head regions. Muscle and movement artifact was observed on a few occasions during the tracing. Hyperventilation was not performed. Photic stimulation at flash frequencies of 2 to 30 Hz produced a minimal occipital driving response. No epileptiform discharges were seen. IMPRESSION: This EEG is moderately abnormal in a diffuse fashion due to slowing of the EEG background. The EEG failed to reveal any focal, lateralized or epileptiform abnormalities. Clinical correlation is recommended.
--- NOTE | 2016-10-24 08:18 | DS ---
DATE OF ADMISSION: 10/21/2016 DATE OF DISCHARGE: 10/23/2016 FINAL DIAGNOSES: 1. Numbness of the left side of the face as well as left-sided weakness, possibly acute transient ischemic attack. 2. Thrombocytopenia. 3. Increased creatinine with chronic kidney disease, stage III. 4. Gait dysfunction. 5. Congestive heart failure with chronic diastolic dysfunction, ejection fraction 55% to 60%. 6. History of cerebrovascular accident with right internal capsular lacunar stroke causing left-sided weakness previously. 7. History of gastroesophageal reflux disease. 8. Essential hypertension history. 9. Benign prostatic hypertrophy. 10. History of obstructive sleep apnea. 11. History of degenerative joint disease. 12. History of nicotine dependence 13. History of claustrophobia. 14. Obesity with body mass index of 33.8. 15. FULL CODE. DISCHARGE DISPOSITION: Patient will be discharged in a stable condition with guarded prognosis after clearance per neurology. HISTORY OF PRESENT ILLNESS: This 61-year-old gentleman with a past medical history of multiple medical problems admitted weakness, numbness as mentioned earlier. Patient was treated symptomatically. Neurology saw the patient. Neurovascular workup was negative. Otherwise, the patient also had an MRI, which did not show any acute stroke. Recommended close outpatient followup. Otherwise, the patient is able to ambulate with a cane as per just like the baseline per physical therapy. On exam, vitals are stable. CARDIOVASCULAR: S1 and S2 muffled. ABDOMEN: Soft. NERVOUS SYSTEM: Minimal weakness on the left side. DISCHARGE ADVICE: 1. Diet is cardiac. 2. Activity limited until followup. 3. Follow up with Dr. Marie in 1 to 2 days. 4. Follow up with Dr. Foley as advised. 5. Home care has been arranged. MEDICATIONS: 1. Norvasc 10 mg p.o. daily. 2. Lipitor 20 mg daily. 3. Coreg 25 mg p.o. b.i.d. 4. Vitamin D3, 2000 daily. 5. Plavix 75 mg p.o. daily. 6. Colcrys 0.6 daily. 7. Neurontin 300 mg t.i.d. 8. Apresoline 50 mg q.6 9. Apresoline 100 mg q.6 p.r.n. 10. [place] 10 mg t.i.d. p.r.n. 11. Lisinopril 40 mg daily. 12. Senna 8.6 mg daily. 13. Flomax 0.4 daily. Once again, the patient will be discharged in a stable condition with guarded prognosis. MTDD
== END 2016-10-23 16:22 | disposition home health service (06) | DRG 69 ==
LOC: EC 18:37 → 6SEL 20:13
PROVIDERS: ADMIT Internal Medicine; ATTEND Internal Medicine
DX: G45.9 Transient cerebral ischemic attack, unspecified (principal); I13.0 Hypertensive heart and chronic kidney disease with heart failure and stage 1 through stage 4 chronic kidney disease, or unspecified chronic kidney disease; I50.32 Chronic diastolic (congestive) heart failure; I69.354 Hemiplegia and hemiparesis following cerebral infarction affecting left non-dominant side; D69.6 Thrombocytopenia, unspecified; N18.3 Chronic kidney disease, stage 3 (moderate); E66.9 Obesity, unspecified; Z68.33 Body mass index [BMI] 33.0-33.9, adult; K21.9 Gastro-esophageal reflux disease without esophagitis; G47.33 Obstructive sleep apnea (adult) (pediatric); M10.9 Gout, unspecified; N40.0 Benign prostatic hyperplasia without lower urinary tract symptoms; R26.9 Unspecified abnormalities of gait and mobility; M19.91 Primary osteoarthritis, unspecified site; Z87.891 Personal history of nicotine dependence; Z79.02 Long term (current) use of antithrombotics/antiplatelets; Z79.899 Other long term (current) drug therapy; F40.240 Claustrophobia
CPT/HCPCS: 36415; 70450; 70551; 71020; 80048; 80053; 80061; 82550; 82553; 84484; 85025; 85610; 85730; 93306; 95819; 96360; 99285

== ENCOUNTER 2017-04-10 16:59 | Emergency (ER) | payer OTHER ==
[2017-04-10] MEDS ORDERED: methylPREDNISolone SOD SUCCI 125 MG/2 ML VIAL IV STA (17:29)
[2017-04-10] MEDS ORDERED: FAMOTIDINE 20 MG/2 ML VIAL IV STA (17:29)
[2017-04-10] MEDS ORDERED: diphenhydrAMINE 50 MG/ML 1 ML VIAL IVP STA (17:29)
--- NOTE | 2017-04-10 17:34 | ED ---
General Adult HPI - General Chief complaint: Allergic Reaction Stated complaint: Poss Allergic Reaction Time Seen by Provider: 04/10/17 17:21 Source: patient, RN notes reviewed Mode of arrival: ambulatory Limitations: no limitations - History of Present Illness Initial comments: This is a 61-year-old male who presents to the emergency department with chief complaint of allergic reaction. Patient states that at 1 PM this afternoon he ate a piece of pineapple. He reports that after eating pineapple his mouth felt like it was on fire. Patient denies any difficulty breathing or swelling of the throat. Patient states that the fire sensation in his mouth is now gone but feels like his lip is swollen and has "lumps and bumps." Patient states he has eaten pineapple in the past and has never had a reaction like this. Denies fever, chills, chest pain, shortness of breath, abdominal pain, nausea or vomiting, constipation or diarrhea, dysuria or hematuria, numbness or tingling, headache or vision changes. - Related Data Home Medications Medication Instructions Recorded Confirmed Cholecalciferol [Vitamin D3] 2,000 unit PO DAILY 01/19/16 10/21/16 Clopidogrel [Plavix] 75 mg PO DAILY 01/19/16 10/21/16 Colchicine [Colcrys] 0.6 mg PO DAILY 01/19/16 10/21/16 Gabapentin [Neurontin] 300 mg PO TID 01/19/16 10/21/16 Lisinopril 40 mg PO DAILY 01/19/16 10/21/16 Sennosides [Senna] 8.6 mg PO DAILY PRN 01/19/16 10/21/16 Tamsulosin HCl [Flomax] 0.4 mg PO DAILY 01/19/16 10/21/16 amLODIPine [Norvasc] 10 mg PO DAILY 07/23/16 10/21/16 hydrALAZINE HCL [Apresoline] 50 mg PO Q6H 07/23/16 10/21/16 hydrALAZINE HCL [Apresoline] 100 mg PO Q6H 07/23/16 10/21/16 HYDROcodone/APAP 10-325MG [[place] 1 tab PO TID PRN 08/22/16 10/21/16 10-325] Atorvastatin [Lipitor] 20 mg PO DAILY 10/21/16 10/21/16 Carvedilol [Coreg] 25 mg PO BID 10/21/16 10/21/16 Allergies Allergy/AdvReac Type Severity Reaction Status Date / Time morphine Allergy Anaphylaxis Verified 04/10/17 17:20 Review of Systems ROS Statement: Those systems with pertinent positive or pertinent negative responses have been documented in the HPI. ROS Other: All systems not noted in ROS Statement are negative. Past Medical History Past Medical History: Heart Failure, CVA/TIA, GERD/Reflux, Hypertension, Prostate Disorder, Renal Disease, Sleep Apnea/CPAP/BIPAP Additional Past Medical History / Comment(s): CVA with slight L arm, L leg weakness, TIA, CKD stage III, problem with his "taste buds"- nothing tastes good , gout bilateral feet and wrists, BPH, DJD, BAN- DOES'NT USE CPAP MACHINE History of Any Multi-Drug Resistant Organisms: None Reported Past Surgical History: Orthopedic Surgery Additional Past Surgical History / Comment(s): LT KNEE repair SX, RT WRIST BONE GRAFT, RT EAR SX(PATCH) , EGD, COLONOSOCPY Past Anesthesia/Blood Transfusion Reactions: No Reported Reaction Additional Past Anesthesia/Blood Transfusion Reaction / Comment(s): CLAUSTERPHOBIA Past Psychological History: No Psychological Hx Reported Smoking Status: Current some day smoker Past Alcohol Use History: None Reported Past Drug Use History: None Reported - Past Family History Mother Family Medical History: Hypertension Father Family Medical History: Cancer Additional Family Medical History / Comment(s): LUNG CANCER General Exam - General Exam Comments Initial Comments: General: Awake and alert, well-developed; in no apparent distress. HEENT: Head atraumatic, normocephalic. Pupils are equal, round and reactive to light. Extraocular movements intact. Bilateral conjunctivae are injected. Oropharynx moist without erythema or exudate. Posterior oropharynx appears normal without swelling. Lower lip is edematous. Neck: Supple. Normal ROM. Cardiovascular: Regular rate and rhythm. No murmurs, rubs or gallops. Chest symmetrical. Respiratory: Lungs clear to auscultation bilaterally. No wheezes, rales or rhonchi. Normal respiratory effort with no use of accessory muscles. Skin: [place], warm and dry without rashes or lesions. Neurological: Alert and oriented x3. CN II-XII grossly intact. Speech is fluent and answers are appropriate. No focal neuro deficits. Psychiatric: Normal mood and affect. No overt signs of depression or anxiety noted. Limitations: no limitations Course Vital Signs 04/10/17 04/10/17 17:17 18:25 Temperature 98.0 F 98.6 F Pulse Rate 58 L 55 L Respiratory 20 16 Rate Blood Pressure 133/87 145/97 O2 Sat by Pulse 96 95 Oximetry Medical Decision Making - Medical Decision Making This is a 61-year-old male who presents to the emergency department with chief complaint of acute food allergy. Patient states that immediately after eating a piece of pineapple his mouth began to feel on fire. On presentation, he complained of lower lip swelling. In emergency department he was given Solu- Medrol, Benadryl and Pepcid IV. We monitored patient for one hour. He is in no acute distress at this time and states that he is feeling better. He'll be discharged home with recommendation follow up with primary care provider in 1-2 days. He is advised to return to the emergency department if symptoms should worsen or he develops any difficulty in breathing. Patient is in agreement to the plan and voiced understanding. All questions were answered. Disposition Clinical Impression: Food allergy Disposition: HOME SELF-CARE Condition: Good Instructions: Food Allergy (ED) Additional Instructions: Please follow up with primary care provider within 1-2 days. Return to emergency department if symptoms should worsen or any concerns arise. Referrals: Lona Marie MD [Primary Care Provider] - 1-2 days Time of Disposition: 19:02
[2017-04-10 18:26] VITALS: BP 145/97; PULSE 55; RESP 16; TEMP 98.6
== END 2017-04-10 18:24 | disposition home or self-care (01) ==
LOC: EC 16:59
DX: T78.1XXA Other adverse food reactions, not elsewhere classified, initial encounter (principal); I13.0 Hypertensive heart and chronic kidney disease with heart failure and stage 1 through stage 4 chronic kidney disease, or unspecified chronic kidney disease; I50.9 Heart failure, unspecified; N18.3 Chronic kidney disease, stage 3 (moderate); K21.9 Gastro-esophageal reflux disease without esophagitis; F17.200 Nicotine dependence, unspecified, uncomplicated; Z86.73 Personal history of transient ischemic attack (TIA), and cerebral infarction without residual deficits; Z79.02 Long term (current) use of antithrombotics/antiplatelets; Z79.899 Other long term (current) drug therapy; Z88.5 Allergy status to narcotic agent
CPT/HCPCS: 99283; 96374; 96375 ×2; J1200; J2930

== ENCOUNTER 2017-06-02 15:03 | Observation (INO) | payer OTHER ==
[2017-06-02 15:17] LABS: Glucose,Whole Blood 125 mg/dL (75-99)
[2017-06-02] MEDS ORDERED: SODIUM CHLORIDE 0.9% 1,000 ML IV STA (15:19)
[2017-06-02] MEDS ORDERED: SODIUM CHLORIDE 0.9% 500 ML IV STA (15:19)
--- NOTE | 2017-06-02 15:24 | ED ---
Neuro HPI - General Chief Complaint: Neuro Symptoms/Deficit Stated Complaint: Poss Stroke Time Seen by Provider: 06/02/17 15:10 Source: patient, family, RN notes reviewed Mode of arrival: wheelchair Limitations: physical limitation - History of Present Illness Is the patient presenting with stroke symptoms?: Yes Initial Comments: This is a 61-year-old male with a history of a prior CVA with left upper extremity and left lower extremity hemiparesis who feels as if he is having worsening symptoms. 6 days ago and then again 4 days ago the patient did fall he felt like his lower extremity was weaker than usual. He denied any headache neck pain he does complain some left rib pain. This she relates to the fall. He has had no fevers chills nausea vomiting no sweats no dysuria no hematuria. - Related Data Home Medications: Home Medications Medication Instructions Recorded Confirmed Cholecalciferol [Vitamin D3] 2,000 unit PO DAILY 01/19/16 06/02/17 Clopidogrel [Plavix] 75 mg PO DAILY 01/19/16 06/02/17 Colchicine [Colcrys] 0.6 mg PO DAILY 01/19/16 06/02/17 Gabapentin [Neurontin] 300 mg PO TID 01/19/16 06/02/17 Lisinopril 40 mg PO DAILY 01/19/16 06/02/17 Sennosides [Senna] 8.6 mg PO DAILY PRN 01/19/16 06/02/17 Tamsulosin HCl [Flomax] 0.4 mg PO DAILY 01/19/16 06/02/17 amLODIPine [Norvasc] 10 mg PO DAILY 07/23/16 06/02/17 hydrALAZINE HCL [Apresoline] 100 mg PO TID 07/23/16 06/02/17 HYDROcodone/APAP 10-325MG [[place] 1 tab PO TID PRN 08/22/16 06/02/17 10-325] Atorvastatin [Lipitor] 20 mg PO DAILY 10/21/16 06/02/17 Carvedilol [Coreg] 25 mg PO BID 10/21/16 06/02/17 Aspirin EC [Ecotrin Low Dose] 81 mg PO DAILY 05/27/17 06/02/17 clonazePAM [KlonoPIN] 0.5 mg PO BID 05/27/17 06/02/17 Allergies/Adverse Reactions: Allergies Allergy/AdvReac Type Severity Reaction Status Date / Time morphine Allergy Anaphylaxis Verified 06/02/17 15:26 Review of Systems ROS Statement: Those systems with pertinent positive or pertinent negative responses have been documented in the HPI. ROS Other: All systems not noted in ROS Statement are negative. General Exam - General Exam Comments Initial Comments: This a well-developed well-nourished awake alert oriented times 3 male Limitations: physical limitation General appearance: alert, in no apparent distress ENT exam: Present: mucous membranes dry Neck exam: Present: normal inspection, full ROM. Absent: tenderness, meningismus, lymphadenopathy Respiratory exam: Present: chest wall tenderness (Tennis palpation of the lateral left chest wall no step-off or crepitation), decreased breath sounds Cardiovascular Exam: Present: regular rate, normal rhythm, normal heart sounds. Absent: systolic murmur, diastolic murmur, rubs, gallop, clicks GI/Abdominal exam: Present: soft, normal bowel sounds. Absent: distended, tenderness, guarding, rebound, rigid Extremities exam: Present: normal capillary refill. Absent: full ROM, tenderness Back exam: Present: normal inspection Neurological exam: Present: alert, oriented X3, CN II-XII intact, motor sensory deficit (Left upper extremity and left lower extremity hemiparesis) Psychiatric exam: Present: normal affect, normal mood Skin exam: Present: warm, dry, intact, normal color. Absent: rash Stroke MDM - Lab Data Result diagrams: 06/02/17 15:25 06/02/17 15:25 Lab Results 06/02/17 06/02/17 06/02/17 Range/Units 15:15 15:25 15:25 WBC 6.4 (3.8-10.6) k/uL RBC 5.13 (4.30-5.90) m/uL Hgb 14.3 (13.0-17.5) gm/dL Hct 42.6 (39.0-53.0) % MCV 83.1 (80.0-100.0) fL MCH 27.8 (25.0-35.0) pg MCHC 33.5 (31.0-37.0) g/dL RDW 15.4 (11.5-15.5) % Plt Count 115 L (150-450) k/uL Neutrophils % 47 % Lymphocytes % 34 % Monocytes % 4 % Eosinophils % 10 % Basophils % 1 % Neutrophils # 3.0 (1.3-7.7) k/uL Lymphocytes # 2.2 (1.0-4.8) k/uL Monocytes # 0.3 (0-1.0) k/uL Eosinophils # 0.6 (0-0.7) k/uL Basophils # 0.1 (0-0.2) k/uL Manual Slide Review Performed RBC Morphology Normal PT (9.0-12.0) sec INR (<1.2) APTT (22.0-30.0) sec Sodium (137-145) mmol/L Potassium (3.5-5.1) mmol/L Chloride (98-107) mmol/L Carbon Dioxide (22-30) mmol/L Anion Gap mmol/L BUN (9-20) mg/dL Creatinine (0.66-1.25) mg/dL Est GFR (MDRD) Af Amer (>60 ml/min/1.73 sqM) Est GFR (MDRD) Non-Af (>60 ml/min/1.73 sqM) Glucose (74-99) mg/dL POC Glucose (mg/dL) 125 H (75-99) mg/dL POC Glu Cardiovascular Disease Specialist ID [place], Ashley Calcium (8.4-10.2) mg/dL Total Bilirubin (0.2-1.3) mg/dL AST (17-59) U/L ALT (21-72) U/L Alkaline Phosphatase (38-126) U/L Total Creatine Kinase 81 (55-170) U/L CK-MB (CK-2) <0.2 (0.0-2.4) ng/mL CK-MB (CK-2) Rel Index Troponin I 0.017 (0.000-0.034) ng/mL Total Protein (6.3-8.2) g/dL Albumin (3.5-5.0) g/dL 06/02/17 06/02/17 Range/Units 15:25 15:25 WBC (3.8-10.6) k/uL RBC (4.30-5.90) m/uL Hgb (13.0-17.5) gm/dL Hct (39.0-53.0) % MCV (80.0-100.0) fL MCH (25.0-35.0) pg MCHC (31.0-37.0) g/dL RDW (11.5-15.5) % Plt Count (150-450) k/uL Neutrophils % % Lymphocytes % % Monocytes % % Eosinophils % % Basophils % % Neutrophils # (1.3-7.7) k/uL Lymphocytes # (1.0-4.8) k/uL Monocytes # (0-1.0) k/uL Eosinophils # (0-0.7) k/uL Basophils # (0-0.2) k/uL Manual Slide Review RBC Morphology PT 10.5 (9.0-12.0) sec INR 1.1 (<1.2) APTT 23.4 (22.0-30.0) sec Sodium 144 (137-145) mmol/L Potassium 4.0 (3.5-5.1) mmol/L Chloride 105 (98-107) mmol/L Carbon Dioxide 28 (22-30) mmol/L Anion Gap 11 mmol/L BUN 16 (9-20) mg/dL Creatinine 1.66 H (0.66-1.25) mg/dL Est GFR (MDRD) Af Amer 52 (>60 ml/min/1.73 sqM) Est GFR (MDRD) Non-Af 43 (>60 ml/min/1.73 sqM) Glucose 122 H (74-99) mg/dL POC Glucose (mg/dL) (75-99) mg/dL POC Glu Cardiovascular Disease Specialist ID Calcium 9.2 (8.4-10.2) mg/dL Total Bilirubin 0.8 (0.2-1.3) mg/dL AST 58 (17-59) U/L ALT 57 (21-72) U/L Alkaline Phosphatase 112 (38-126) U/L Total Creatine Kinase (55-170) U/L CK-MB (CK-2) (0.0-2.4) ng/mL CK-MB (CK-2) Rel Index Troponin I (0.000-0.034) ng/mL Total Protein 6.9 (6.3-8.2) g/dL Albumin 3.5 (3.5-5.0) g/dL - NIH Stroke Scale 1a. Level of Consciousness: (0) alert 1b. LOC Questions: (0) answers correctly 1c. LOC Commands: (0) performs tasks correctly 2. Best Gaze: (0) normal 3. Visual: (0) no visual loss 4. Facial Palsy: (0) normal symmetrical movement 5a. Motor Arm Left: (2) some gravity effort 5b. Motor Arm Right: (0) no drift 6a. Motor Leg Left: (2) some gravity effort 6b. Motor Leg Right: (0) no drift 7. Limb Ataxia: (0) absent 8. Sensory: (0) normal 9. Best Language: (0) no aphasia 10. Dysarthria: (0) normal 11. Extinction/Inattention: (0) no abnormality - Thrombolytic Inclusion/Exclusion Thrombolytic Exclusion Criteria: Symptom Onset > 3 Hours - Medical Decision Making Imaging reviewed and shows no evidence of acute findings. Did have one discussed with the patient and family members regarding the findings patient is agreed to stay in the hospital today for evaluation by neurology. She has been on Dr. Weller's service in the past. I did discuss case with Dr. Rodgers - EKG Data -: EKG Interpreted by Me EKG shows normal: sinus rhythm (Sinus rhythm first-degree AV block rate was 70 CT interval 224 QRS 102 QT since QTC of 420/453 poor R-wave progression.) Past Medical History Past Medical History: Heart Failure, CVA/TIA, GERD/Reflux, Hypertension, Prostate Disorder, Renal Disease, Sleep Apnea/CPAP/BIPAP Additional Past Medical History / Comment(s): CVA with slight L arm, L leg weakness, TIA, CKD stage III, problem with his "taste buds"- nothing tastes good , gout bilateral feet and wrists, BPH, DJD, BAN- DOES'NT USE CPAP MACHINE History of Any Multi-Drug Resistant Organisms: None Reported Past Surgical History: Orthopedic Surgery Additional Past Surgical History / Comment(s): LT KNEE repair SX, RT WRIST BONE GRAFT, RT EAR SX(PATCH) , EGD, COLONOSOCPY Past Anesthesia/Blood Transfusion Reactions: No Reported Reaction Additional Past Anesthesia/Blood Transfusion Reaction / Comment(s): CLAUSTERPHOBIA Past Psychological History: No Psychological Hx Reported Smoking Status: Current some day smoker Past Alcohol Use History: None Reported Past Drug Use History: None Reported - Past Family History Mother Family Medical History: Hypertension Father Family Medical History: Cancer Additional Family Medical History / Comment(s): LUNG CANCER Course Vital Signs 06/02/17 06/02/17 06/02/17 15:05 15:26 16:26 Temperature 98.9 F Pulse Rate 72 68 54 L Respiratory 15 Rate Blood Pressure 134/89 126/84 127/71 O2 Sat by Pulse 93 L 99 99 Oximetry 06/02/17 17:26 Temperature Pulse Rate 54 L Respiratory Rate Blood Pressure 128/74 O2 Sat by Pulse 96 Oximetry Disposition Clinical Impression: CVA (cerebral vascular accident) Disposition: ADMITTED IP TO THIS HOSP Condition: Stable Referrals: Lona Marie MD [Primary Care Provider] - 1-2 days
[2017-06-02] MEDS ORDERED: HYDROmorphone 1 MG/ML 1 ML SYRINGE IVP STA (15:26)
[2017-06-02 15:32] LABS: Basophils # (A) 0.1 k/uL (0-0.2); Basophils % (A) 1 %; Eosinophils # (A) 0.6 k/uL (0-0.7); Eosinophils % (A) 10 %; HCT 42.6 % (39.0-53.0); HGB 14.3 gm/dL (13.0-17.5); Lymphocytes # (A) 2.2 k/uL (1.0-4.8); Lymphocytes % (A) 34 %; MCH 27.8 pg (25.0-35.0); MCHC 33.5 g/dL (31.0-37.0); MCV 83.1 fL (80.0-100.0); Mean Platelet Volume 9.4; Monocytes # (A) 0.3 k/uL (0-1.0); Monocytes % (A) 4 %; Neutrophils % (A) 47 %; Platelet Count 115 k/uL (150-450); RBC 5.13 m/uL (4.30-5.90); RDW 15.4 % (11.5-15.5); WBC 6.4 k/uL (3.8-10.6)
[2017-06-02 15:42] LABS: INR 1.1 (<1.2); Partial Thromboplastin Time 23.4 sec (22.0-30.0); Prothrombin Time 10.5 sec (9.0-12.0)
[2017-06-02 15:44] LABS: Albumin 3.5 g/dL (3.5-5.0); Calcium 9.2 mg/dL (8.4-10.2); Total Bilirubin 0.8 mg/dL (0.2-1.3); Total Protein 6.9 g/dL (6.3-8.2)
[2017-06-02 15:52] LABS: Creatine Kinase 81 U/L (55-170)
[2017-06-02 16:05] LABS: Creatine Kinase MB <0.2 ng/mL (0.0-2.4); Troponin I 0.017 ng/mL (0.000-0.034)
--- NOTE | 2017-06-02 16:05 | CT ---
EXAMINATION TYPE: CT brain wo con DATE OF EXAM: 06/02/2017 COMPARISON: 10/21/2016 HISTORY: Left sided weakness CT DLP: 1108.4 mGycm Automated exposure control for dose reduction was used. FINDINGS: There is mild cerebral cortical atrophy. There is some patchy hypodensity in the periventricular whit e matter and more around the frontal horns of the lateral ventricle. There is mild 3 x 4 cm area of h ypodensity in the right posterior parietal lobe saenz-white matter junction. There is no midline shift . There is no sign of intracranial hemorrhage. There is mucosal thickening in the ethmoid air cells. Calvarium is intact. IMPRESSION: CHRONIC SMALL VESSEL ISCHEMIA. CEREBRAL ATROPHY. OLD RIGHT POSTERIOR PARIETAL CORTICAL INFARCT. OLD B ILATERAL WHITE MATTER LACUNAR INFARCTS. NO ACUTE INTRACRANIAL ABNORMALITY. NO CHANGE.
--- NOTE | 2017-06-02 16:31 | XR ---
EXAMINATION TYPE: XR chest 2V DATE OF EXAM: 06/02/2017 COMPARISON: 10/21/2016 HISTORY: Left-sided rib pain TECHNIQUE: Frontal and lateral views of the chest are obtained. FINDINGS: This coarsening of interstitial markings. Thoracic aorta is atheromatous. Heart size is no rmal. There are no hilar masses. Bony thorax is intact. IMPRESSION: Atheromatous aorta. No active cardiopulmonary disease. 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 No change compared to old exam. Pulmonary fibrotic changes.
--- NOTE | 2017-06-02 16:33 | XR ---
EXAMINATION TYPE: XR ribs LT DATE OF EXAM: 06/02/2017 COMPARISON: NONE HISTORY: Rib pain TECHNIQUE: 4 views FINDINGS: I see no pleural effusion or pneumothorax. Left lung is clear of consolidation. I see no di splaced rib fracture. IMPRESSION: Negative left rib exam.
[2017-06-02] MEDS ORDERED: SENNOSIDES 8.6 MG TAB PO PRN (18:20)
[2017-06-02] MEDS: HYDROcodone/APAP 10-325MG 1 EACH TAB PO PRN (21:19)
[2017-06-02] MEDS: hydrALAZINE HCL 50 MG TAB PO SCH (22:21)
[2017-06-02] MEDS: GABAPENTIN 300 MG CAP PO SCH (22:21)
[2017-06-02] MEDS: clonazePAM 0.5 MG TAB PO SCH (22:21)
[2017-06-02] MEDS: SODIUM CHLORIDE 0.9% 1,000 ML IV SCH (22:21)
[2017-06-02 22:57] VITALS: BMI 29.5
[2017-06-03 03:27] LABS: Cholesterol 106 mg/dL (<200); HDL Cholesterol 30 mg/dL (40-60); LDL Cholesterol,Calculated 62 mg/dL (0-99); Triglycerides 72 mg/dL (<150)
[2017-06-03] MEDS: CARVEDILOL 12.5 MG TAB PO SCH ×3 (05:50→08:54)
[2017-06-03] MEDS: HYDROcodone/APAP 10-325MG 1 EACH TAB PO PRN ×2 (06:17→14:44)
--- NOTE | 2017-06-03 08:43 | HP ---
HISTORY AND PHYSICAL DATE OF SERVICE: 06/02/17 CHIEF COMPLAINT: Left-sided chest pain and weakness. HISTORY OF PRESENT ILLNESS: This 61-year-old gentleman with a past medical history of multiple medical problems including CVA, TIA, GERD, hypertension, prostate and CVI, being followed by Dr. Omer Marie in the outpatient setting apparently had a fall at home and the patient also complains of weakness on the left side which is increasing for the last several days. The patient came to [facility] and was admitted for further evaluation and treatment. CT scan of the brain showed multiple abnormalities including chronic small vessel ischemic cerebral vascular atrophy and old right posterior parietal infarct and old bilateral white matter lacunar infarcts also. The chest x-ray showed no active findings except possible aortic arch. Otherwise hip x-ray showed no evidence of fracture. There is no history of fever, rigors or chills. No history of headache, loss of consciousness or seizures. PAST MEDICAL HISTORY: CVA, TIA, GERD, hypertension, history of prostate disorder, history of CHF. MEDICATIONS: Prior to admission include home medications are: 1. Apresoline 100 mg p.o. t.i.d. 2. Klonopin 0.5 mg b.i.d. 3. Norvasc 10 mg daily. 4. Flomax 0.4 daily. 5. Senna 8.6, daily p.r.n. 6. Lisinopril 40 mg daily. 7. [place] 10 mg t.i.d. 8. Neurontin 300 mg t.i.d. 9. Colcrys 0.6 mg p.o. daily. 10.Plavix 75 mg. 11.Vitamin D3 2000 daily. 12.Coreg 25 mg p.o. b.i.d. 13.Lipitor 10 mg b.i.d. 14.Ecotrin 81 mg. ALLERGIES: MORPHINE. FAMILY HISTORY: Hypertension, lung cancer. SOCIAL HISTORY: History of smoking. No alcohol intake. REVIEW OF SYSTEMS: ENT: No diminished vision. No diminished hearing. Cardiovascular: No angina. Respiratory: As mentioned earlier. : No dysuria. GI: No nausea or vomiting. NERVOUS SYSTEM: As mentioned earlier. Allergy/Immunology: No asthma or hayfever. Hematology/Oncology: No history of anemia. Endocrine: No history of diabetes or hypothyroidism. Constitutional: As mentioned earlier. Dermatology: Negative. Rheumatology: Negative. Psychiatric: As mentioned earlier. PHYSICAL EXAMINATION: Alert, oriented times three. Pulse 52, blood pressure 140/91 respiration 18, temp 97.4, pulse ox 98% on 2 L. HEENT: Conjunctivae normal. Oral mucosa moist. Neck is no jugular venous distention. No carotid bruit. No lymph node enlargement. Cardiovascular system: S1, S2 muffled. No stenosis pressure in the bases. No rhonchi. No crackles. ABDOMEN: Soft, nontender. No mass palpable. Legs no edema. No swelling. NERVOUS SYSTEM: Higher functions as mentioned earlier. Cranial nerves 2 thru 12 grossly intact. Facial deviation on the left side otherwise. Significant weakness of the left side, left upper limb especially the proximal part grade 4 and part grade 3. Lower limbs are almost Grade 4. Otherwise, skin no ulcers, rashes or bleeding. Lymphatics: No lymph nodes palpable in the neck, axillae or groin. Joints: No active deforming arthropathy. LABORATORY DATA: CBC platelets 115, creatinine 1.6. ASSESSMENT: 1. Fall and weakness possibly acute transient ischemic attack. 2. Left wrist and rib pain. 3. Mild thrombocytopenia. 4. History of congestive heart failure. 5. History of previous stroke of the right posterior parietal area. 6. History of hypertension. 7. History of gastroesophageal reflux disease. 8. History of sleep apnea. 9. History of gout. RECOMMENDATIONS AND DISCUSSION: In this 61-year-old gentleman who presented with multiple complex medical issues, we will monitor the patient closely, continue the current management and symptomatic treatment. Otherwise, PT/OT evaluation. Symptomatic treatment provided. Resume the home medications. See orders for further details. Prognosis guarded. MMODL / IJN: [id number] /
[2017-06-03] MEDS: GABAPENTIN 300 MG CAP PO SCH ×2 (08:53→14:45)
[2017-06-03] MEDS: hydrALAZINE HCL 50 MG TAB PO SCH ×2 (08:53→14:45)
[2017-06-03] MEDS: clonazePAM 0.5 MG TAB PO SCH (08:59)
[2017-06-03] MEDS ORDERED: amLODIPine 10 MG TAB PO SCH (09:00)
[2017-06-03] MEDS ORDERED: LISINOPRIL 20 MG TAB PO SCH (09:00)
[2017-06-03] MEDS ORDERED: ATORVASTATIN 20 MG TAB PO SCH (09:00)
[2017-06-03] MEDS ORDERED: TAMSULOSIN 0.4 MG CAP.ER.24H PO SCH (09:00)
[2017-06-03] MEDS ORDERED: ASPIRIN 81 MG PO SCH (09:00)
[2017-06-03] MEDS ORDERED: COLCHICINE 0.6 MG TAB PO SCH (09:00)
[2017-06-03] MEDS ORDERED: CLOPIDOGREL 75 MG TAB PO SCH (09:00)
[2017-06-03] MEDS: SODIUM CHLORIDE 0.9% 1,000 ML IV SCH (09:02)
--- NOTE | 2017-06-03 10:55 | US ---
EXAMINATION TYPE: US carotid duplex BILAT DATE OF EXAM: 06/03/2017 COMPARISON: NONE CLINICAL HISTORY: Stenosis. recent fall, h/o stroke EXAM MEASUREMENTS: RIGHT: Peak Systolic Velocity (PSV) cm/sec ----- Right CCA: 35.6 ----- Right ICA: 44.2 ----- Right ECA: 33.5 ICA/CCA ratio: 1.2 RIGHT: End Diastole cm/sec ----- Right CCA: 9.8 ----- Right ICA: 18.4 ----- Right ECA: 9.9 LEFT: Peak Systolic Velocity (PSV) cm/sec ----- Left CCA: 38.2 ----- Left ICA: 43.9 ----- Left ECA: 38.7 ICA/CCA ratio: 1.2 LEFT: End Diastole cm/sec ----- Left CCA: 21.1 ----- Left ICA: 18.1 ----- Left ECA: 8.4 VERTEBRALS (direction of flow): Right Vertebral: Antegrade Left Vertebral: Antegrade Rhythm: Normal Mild homogeneous plaque seen with no significant stenosis, lower velocities bilaterally IMPRESSION: 1. Mild homogeneous plaque with no significant hemodynamic stenosis bilaterally. Criteria for Assigning % of Stenosis / Diameter reduction (Estimation based on the indirect measurements of the internal carotid artery velocities (ICA PSV). 1. Normal (no stenosis)=ICA PSV < 125 cm/s: ratio < 2.0: ICA EDV<40 cm/s. 2. Less than 50% stenosis=ICA PSV < 125 cm/s: ratio < 2.0: ICA EDV<40 cm/s. 3. 50 to 69% stenosis=ICA PSV of 125 to 230 cm/s: ration 2.0 ? 4.0: ICA EDV 40-100 cm/s. 4. Greater than 70% stenosis to near occlusion= ICA PSV > 230 cm/s: ratio > 4.0: ICA EDV > 100 cm/s. 5. Near occlusion= ICA PSV velocities may be low or undetectable: variable ratio and ICA EDV. 6. Total occlusion=unable to detect flow.
[2017-06-03] MEDS ORDERED: CHOLECALCIFEROL 1,000 UNIT TAB PO SCH (12:00)
--- NOTE | 2017-06-03 16:14 | P.CNNES ---
History of Present Illness Consult date: 06/03/17 Reason for Consult: Patient being evaluated for left sided weakness and possible stroke. History of Present Illness: This patient is a 61-year-old right-handed white male was evaluated today on the selective care floor. Patient states he was brought into the emergency room yesterday after he sustained a fall at home. Patient states he tripped and fell onto a small stool and struck the left side of his chest wall. He complained of severe chest pain following the fall and decided to come to the emergency room for further evaluation at [facility]. He was seen in the ER yesterday by Dr. Landaverde. He was complaining of left-sided pain as well as weakness. For this reason he was admitted to the hospital as he does have a history of a previous stroke. Patient states his stroke occurred last year and affected his left side. He did not necessarily feel there was new weakness on his left side but did complain of pain on the left lateral chest wall. The patient is followed in the outpatient medical clinic with Dr. Omer Marie. He states that he is scheduled to follow-up with his primary physician tomorrow. Patient states that he has been up and ambulating today and has no new evidence of left-sided weakness. As noted he was seen in the ER yesterday and was sent for a computed tomography scan of the brain. CAT scan of the brain revealed evidence of an old right posterior parietal lobe infarct. There was no evidence of any new or acute stroke. No evidence for acute hemorrhage. Patient states he has been up and ambulating today in the hallway and does not feel any new changes in terms of his old left residual weakness. He underwent x -rays of the ribs and apparently there was no evidence of rib fracture. The patient is continuing treatment for his previous stroke. He is currently taking combination of Plavix and aspirin. We did review the results of the CAT scan and chest x-ray and rib x-rays with him in detail. The patient also underwent a carotid Doppler ultrasound today which revealed no significant carotid artery stenosis. The patient is being considered for discharge home later today. Neurology is now been consulted for further evaluation and recommendations. Review of Systems Constitutional: Denies chills, Denies fever Eyes: denies blurred vision, denies pain Ears, nose, mouth and throat: Denies headache, Denies sore throat Cardiovascular: Denies chest pain, Denies shortness of breath Respiratory: Denies cough Gastrointestinal: Denies abdominal pain, Denies diarrhea, Denies nausea, Denies vomiting Musculoskeletal: Denies myalgias Integumentary: Denies pruritus, Denies rash Neurological: Reports gait dysfunction, Reports paresthesias, Denies numbness, Denies weakness Psychiatric: Denies anxiety, Denies depression Endocrine: Denies fatigue, Denies weight change Past Medical History Past Medical History: Heart Failure, CVA/TIA, GERD/Reflux, Hypertension, Prostate Disorder, Renal Disease, Sleep Apnea/CPAP/BIPAP Additional Past Medical History / Comment(s): CVA with slight L arm, L leg weakness, TIA, CKD stage III, problem with his "taste buds"- nothing tastes good , gout bilateral feet and wrists, BPH, DJD, BAN- DOES'NT USE CPAP MACHINE History of Any Multi-Drug Resistant Organisms: None Reported Past Surgical History: Orthopedic Surgery Additional Past Surgical History / Comment(s): LT KNEE repair SX, RT WRIST BONE GRAFT, RT EAR SX(PATCH) , EGD, COLONOSOCPY Past Anesthesia/Blood Transfusion Reactions: No Reported Reaction Additional Past Anesthesia/Blood Transfusion Reaction / Comment(s): CLAUSTERPHOBIA Past Psychological History: No Psychological Hx Reported Additional Psychological History / Comment(s): Pt resides with significant other. He uses a cane prn. He drives. Smoking Status: Current some day smoker Past Alcohol Use History: None Reported Additional Past Alcohol Use History / Comment(s): pt states started smoking 3 months ago, only smokes 5 cigarettes a week Past Drug Use History: None Reported - Past Family History Mother Family Medical History: Hypertension Father Family Medical History: Cancer Additional Family Medical History / Comment(s): LUNG CANCER Medications and Allergies Home Medications Medication Instructions Recorded Confirmed Type Cholecalciferol [Vitamin D3] 2,000 unit PO DAILY 01/19/16 06/02/17 History Clopidogrel [Plavix] 75 mg PO DAILY 01/19/16 06/02/17 History Colchicine [Colcrys] 0.6 mg PO DAILY 01/19/16 06/02/17 History Gabapentin [Neurontin] 300 mg PO TID 01/19/16 06/02/17 History Lisinopril 40 mg PO DAILY 01/19/16 06/02/17 History Sennosides [Senna] 8.6 mg PO DAILY PRN 01/19/16 06/02/17 History Tamsulosin HCl [Flomax] 0.4 mg PO DAILY 01/19/16 06/02/17 History amLODIPine [Norvasc] 10 mg PO DAILY 07/23/16 06/02/17 History hydrALAZINE HCL [Apresoline] 100 mg PO TID 07/23/16 06/02/17 History HYDROcodone/APAP 10-325MG [[place] 1 tab PO TID PRN 08/22/16 06/02/17 History 10-325] Atorvastatin [Lipitor] 20 mg PO DAILY 10/21/16 06/02/17 History Aspirin EC [Ecotrin Low Dose] 81 mg PO DAILY 05/27/17 06/02/17 History clonazePAM [KlonoPIN] 0.5 mg PO BID 05/27/17 06/02/17 History Carvedilol [Coreg] 12.5 mg PO BID #0 06/03/17 06/02/17 Rx Allergies Allergy/AdvReac Type Severity Reaction Status Date / Time morphine Allergy Anaphylaxis Verified 06/02/17 15:26 Physical Examination - Vital Signs Vital Signs: Vital Signs Temp Pulse Pulse Resp BP BP Pulse Ox 06/03/17 11:31 97.0 F L 48 L 16 102/73 97 06/03/17 11:27 62 18 06/03/17 08:00 96.8 F L 62 18 129/87 97 06/03/17 04:00 54 L 18 06/03/17 00:00 98.7 F 56 L 16 134/87 97 06/02/17 20:00 99.2 F 60 16 137/86 95 06/02/17 18:32 97.5 F L 52 L 18 141/91 99 06/02/17 18:27 99.2 F 60 16 137/86 95 06/02/17 17:26 54 L 128/74 96 06/02/17 16:26 54 L 127/71 99 06/02/17 15:26 68 126/84 99 06/02/17 15:05 98.9 F 72 15 134/89 93 L Intake and Output 06/03/17 06/03/17 06/03/17 06:59 14:59 22:59 Intake Total 360 Output Total 1100 Balance -1100 360 Intake: Oral 360 Output: Urine 1100 Other: Voiding Method Toilet # Voids 1 1 Weight 96.3 kg - Constitutional General appearance: average body habitus, cooperative - EENT EENT: PERRL, mucous membranes moist - Respiratory Respiratory: lungs clear, normal breath sounds - Cardiovascular Cardiovascular: regular rate, normal S1, normal S2 Extremities: no peripheral edema bilaterally - Gastrointestinal Gastrointestinal: normoactive bowel sounds - Integumentary Integumentary: normal - Neurologic Cranial nerve examination: PERRL, EOMI, VFF, V1/V2/V3 grossly intact, face symmetric, tongue midline, intact gag reflex, intact corneal reflex, normal palatal elevation Speech examination: intact Sensorimotor examination: intact Motor examination - right side: 10/04: biceps, triceps, wrist flexion, wrist extension, 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, hip flexors, knee extensors, dorsiflexion, toe extension (EHL) , plantarflexion Motor examination - left side: 08/04: biceps, triceps, wrist flexion, wrist extension, 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, hip flexors, knee extensors, dorsiflexion, toe extension (EHL) , plantarflexion Detailed sensory examination: intact Reflex and gait examination: intact Reflexes: 1+: ankle, bicep, knee, tricep - Musculoskeletal Musculoskeletal: no pain - Psychiatric Psychiatric: mood/affect appropriate, cooperative Results - Laboratory Findings CBC and BMP: 06/02/17 15:25 06/02/17 15:25 Abnormal Lab Findings: Abnormal Labs 06/02/17 06/02/17 06/02/17 15:15 15:25 15:25 Plt Count 115 L Creatinine 1.66 H Glucose 122 H POC Glucose (mg/dL) 125 H HDL Cholesterol 06/02/17 15:25 Plt Count Creatinine Glucose POC Glucose (mg/dL) HDL Cholesterol 30 L Assessment and Plan (1) Chronic right arterial ischemic stroke, MCA (middle cerebral artery) Current Visit: Yes Status: Acute Code(s): I69.30 - UNSPECIFIED SEQUELAE OF CEREBRAL INFARCTION SNOMED Code(s): 039589257 (2) TIA (transient ischemic attack) Current Visit: No Status: Acute Code(s): G45.9 - TRANSIENT CEREBRAL ISCHEMIC ATTACK, UNSPECIFIED SNOMED Code(s): 564612867 (3) Bradycardia Current Visit: No Status: Chronic Code(s): R00.1 - BRADYCARDIA, UNSPECIFIED SNOMED Code(s): 23386667 (4) HTN (hypertension) Current Visit: No Status: Chronic Code(s): I10 - ESSENTIAL (PRIMARY) HYPERTENSION SNOMED Code(s): 13153340 Plan: This patient is a 61-year-old right-handed -[place] male who was admitted to hospital yesterday after sustaining a fall at home. Patient states he tripped and fell at home and stroke a stool on his left side of the chest wall. He does developed severe left-sided rib pain and was concerned about possibility of a rib fracture. He came into the emergency room yesterday and was seen in the ER by Dr. Landaverde. He complained of some increased weakness on his left side from a previous old residual stroke. He was sent for a computed tomography scan of the brain results which are noted above. Patient has been taking Plavix and aspirin for secondary stroke prevention. He states that his left-sided weakness has not changed since admission to the hospital. It is his baseline level of weakness following his stroke in September of this last year. Patient has been up and ambulating in the hallways. He is being considered for discharge home later today. His computed tomography scan of the brain as well as carotid Doppler ultrasound results were reviewed with him. Carotid reveals no significant carotid artery stenosis. CAT scan of the brain is as noted above. He did have mild bradycardia which she is closely being followed by his primary care physician with adjustments of his hypertensive medications. At this time we are reckoning patient should be maintained on Plavix and aspirin for secondary stroke prevention. He is to follow-up with his primary care physician tomorrow. He is being discharged home today and make a return to the hospital if he has any recurrent symptoms. So overall prognosis at this time remains guarded. Case was discussed at length with the patient. He is aware of his discharge recommendations. We'll be happy to follow up with him as needed in the outpatient neurology clinic. His overall prognosis at this time remains guarded. Time with Patient: Greater than 30
--- NOTE | 2017-06-04 07:58 | DS ---
DISCHARGE SUMMARY DATE OF SERVICE: 06/03/2017. FINAL DIAGNOSES: 1. Fall and weakness, possible acute transient ischemic attack. 2. Left rib pain, status post trauma. No evidence of fracture. 3. Thrombocytopenia. 4. History of congestive heart failure. 5. History of previous stroke with right posterior parietal area. 6. History of hypertension. 7. Gastroesophageal reflux disease. 8. History of sleep apnea. 9. History of gout discharge. DISCHARGE DISPOSITION: Patient will be discharged in a stable condition with guarded prognosis. Patient is keen on going home. HISTORY OF PRESENT ILLNESS: This is a 61-year-old gentleman with a past medical history admitted with some weakness and as well as left-sided chest pain after a fall. Treated symptomatic. There was no evidence of fracture. Carotid Doppler was done and Neurology saw the patient. Patient will be discharged in stable condition with guarded prognosis. Carotid Doppler did not show any acute abnormality. Discharge diet is cardiac. Activity limited until followup. Follow up with Dr. Marie as advised. Follow up with Dr. Yocasta Foley as recommended. MEDICATIONS WILL BE: 1. Norvasc 10 mg daily. 2. Ecotrin 81 mg p.o. daily. 3. Lipitor 20 mg daily. 4. Coreg 12.5 mg p.o. b.i.d. 5. Vitamin D3 two thousand daily. 6. Klonopin 0.5 mg p.o. b.i.d. 7. Plavix 75 mg p.o. daily. 8. Colcrys 0.6 p.o. daily. 9. Neurontin 300 mg p.o. t.i.d. 10.Apresoline 100 mg p.o. t.i.d. 11.Hydrocodone 10 mg t.i.d. p.r.n. 12.Lisinopril 40 mg daily. 13.Senna 8.6 p.o. daily. 14.Flomax 0.4 daily. Once again, the patient discharged in a stable condition with a guarded prognosis. MMODL / IJN: [id number] /
[2017-06-04 22:55] VITALS: PULSE 63
[2017-06-04 22:59] VITALS: BP 116/76; TEMP 97
[2017-06-04 23:02] VITALS: RESP 16
== END 2017-06-03 16:06 | disposition home or self-care (01) ==
LOC: EC 15:03 → INTOOBSV 18:21 → 6SEL 18:21 → UNDODISIN 06-03 16:06
PROVIDERS: ADMIT Internal Medicine; ATTEND Internal Medicine
DX: R53.1 Weakness (principal); R07.81 Pleurodynia; I69.354 Hemiplegia and hemiparesis following cerebral infarction affecting left non-dominant side; D69.6 Thrombocytopenia, unspecified; I13.0 Hypertensive heart and chronic kidney disease with heart failure and stage 1 through stage 4 chronic kidney disease, or unspecified chronic kidney disease; N18.3 Chronic kidney disease, stage 3 (moderate); I50.9 Heart failure, unspecified; G47.33 Obstructive sleep apnea (adult) (pediatric); F17.210 Nicotine dependence, cigarettes, uncomplicated; K21.9 Gastro-esophageal reflux disease without esophagitis; M10.9 Gout, unspecified; N40.0 Benign prostatic hyperplasia without lower urinary tract symptoms; W01.0XXA Fall on same level from slipping, tripping and stumbling without subsequent striking against object, initial encounter; Y92.009 Unspecified place in unspecified non-institutional (private) residence as the place of occurrence of the external cause; Z79.02 Long term (current) use of antithrombotics/antiplatelets; Z79.82 Long term (current) use of aspirin; Z79.899 Other long term (current) drug therapy; Z88.5 Allergy status to narcotic agent; Z80.1 Family history of malignant neoplasm of trachea, bronchus and lung; Z82.49 Family history of ischemic heart disease and other diseases of the circulatory system
CPT/HCPCS: 96361 ×3; 96374; 99285; 36415; 93005; 97162; 97165; 92610; 80061; 80053; 82550; 82553; 84484; 85025; 85610; 85730; 71100; 71046; 93880; 70450; G0378 ×2; J1170

== ENCOUNTER 2017-06-21 11:09 | Inpatient (IN) | payer OTHER ==
[2017-06-21] MEDS ORDERED: SODIUM CHLORIDE 0.9% 500 ML IV STA (11:37)
[2017-06-21] MEDS ORDERED: SODIUM CHLORIDE 0.9% 1,000 ML IV STA (11:37)
--- NOTE | 2017-06-21 11:41 | ED ---
General Adult HPI - General Chief complaint: Weakness Stated complaint: POSS CVA, LEFT SIDE WEAKNESS Time Seen by Provider: 06/21/17 11:33 Source: EMS, RN notes reviewed, old records reviewed Mode of arrival: EMS Limitations: physical limitation - History of Present Illness Initial comments: This is a 61-year-old male the ER for evaluation of neurological complaint, presents with history of recent stroke. Patient has left-sided weakness with history of left-sided weakness, patient also has new dizziness and incontinence. Patient denies headache or chest pain. No recent falls. Patient is taking all medications as prescribed - Related Data Home Medications Medication Instructions Recorded Confirmed Cholecalciferol [Vitamin D3] 2,000 unit PO DAILY 01/19/16 06/21/17 Clopidogrel [Plavix] 75 mg PO DAILY 01/19/16 06/21/17 Colchicine [Colcrys] 0.6 mg PO DAILY 01/19/16 06/21/17 Gabapentin [Neurontin] 300 mg PO TID 01/19/16 06/21/17 Lisinopril 40 mg PO DAILY 01/19/16 06/21/17 Sennosides [Senna] 8.6 mg PO DAILY PRN 01/19/16 06/21/17 Tamsulosin HCl [Flomax] 0.4 mg PO DAILY 01/19/16 06/21/17 amLODIPine [Norvasc] 10 mg PO DAILY 07/23/16 06/21/17 hydrALAZINE HCL [Apresoline] 100 mg PO TID 07/23/16 06/21/17 HYDROcodone/APAP 10-325MG [[place] 1 tab PO TID PRN 08/22/16 06/21/17 10-325] Atorvastatin [Lipitor] 20 mg PO DAILY 10/21/16 06/21/17 Aspirin EC [Ecotrin Low Dose] 81 mg PO DAILY 05/27/17 06/21/17 clonazePAM [KlonoPIN] 0.5 mg PO BID 05/27/17 06/21/17 Previous Rx's Medication Instructions Recorded Carvedilol [Coreg] 12.5 mg PO BID #0 06/03/17 Allergies Allergy/AdvReac Type Severity Reaction Status Date / Time morphine Allergy Anaphylaxis Verified 06/21/17 12:17 pineapple Allergy Swelling Verified 06/21/17 12:17 Review of Systems ROS Statement: Those systems with pertinent positive or pertinent negative responses have been documented in the HPI. ROS Other: All systems not noted in ROS Statement are negative. Past Medical History Past Medical History: Heart Failure, CVA/TIA, GERD/Reflux, Hypertension, Prostate Disorder, Renal Disease, Sleep Apnea/CPAP/BIPAP Additional Past Medical History / Comment(s): CVA with slight L arm, L leg weakness, TIA, CKD stage III, problem with his "taste buds"- nothing tastes good , gout bilateral feet and wrists, BPH, DJD, BAN- DOES'NT USE CPAP MACHINE History of Any Multi-Drug Resistant Organisms: None Reported Past Surgical History: Orthopedic Surgery Additional Past Surgical History / Comment(s): LT KNEE repair SX, RT WRIST BONE GRAFT, RT EAR SX(PATCH) , EGD, COLONOSOCPY Past Anesthesia/Blood Transfusion Reactions: No Reported Reaction Additional Past Anesthesia/Blood Transfusion Reaction / Comment(s): CLAUSTERPHOBIA Past Psychological History: No Psychological Hx Reported Smoking Status: Current some day smoker Past Alcohol Use History: None Reported Past Drug Use History: None Reported - Past Family History Mother Family Medical History: Hypertension Father Family Medical History: Cancer Additional Family Medical History / Comment(s): LUNG CANCER General Exam - General Exam Comments Initial Comments: Patient has no change in neurological complaint Limitations: physical limitation General appearance: alert, in no apparent distress Head exam: Present: atraumatic, normocephalic, normal inspection Eye exam: Present: normal appearance, PERRL, EOMI. Absent: scleral icterus, conjunctival injection, periorbital swelling ENT exam: Present: normal exam, mucous membranes moist Neck exam: Present: normal inspection. Absent: tenderness, meningismus, lymphadenopathy Respiratory exam: Present: normal lung sounds bilaterally. Absent: respiratory distress, wheezes, rales, rhonchi, stridor Cardiovascular Exam: Present: regular rate, normal rhythm, normal heart sounds. Absent: systolic murmur, diastolic murmur, rubs, gallop, clicks GI/Abdominal exam: Present: soft, normal bowel sounds. Absent: distended, tenderness, guarding, rebound, rigid Extremities exam: Present: normal inspection, full ROM, normal capillary refill. Absent: tenderness, pedal edema, joint swelling, calf tenderness Back exam: Present: normal inspection Neurological exam: Present: alert, oriented X3, CN II-XII intact Psychiatric exam: Present: normal affect, normal mood Skin exam: Present: warm, dry, intact, normal color. Absent: rash Course Vital Signs 06/21/17 06/21/17 11:15 12:43 Temperature 97.3 F L Pulse Rate 56 L 51 L Respiratory 15 18 Rate Blood Pressure 135/88 140/86 O2 Sat by Pulse 96 97 Oximetry - Reevaluation(s) Reevaluation #1: 06/21/17 13:10 NIH of 5 EKG Findings - EKG Comments: EKG Findings:: EKG shows sinus bradycardia rate of 49, pO2 8, QRS 96, QTc 428 Medical Decision Making - Medical Decision Making 61 male the ER was significant arterial disease coming in with history of stroke and increasing exacerbations of symptoms left-sided weakness, mild dysphagia. Patient will be admitted for neurological evaluation and treatment - Lab Data Lab Results 06/21/17 Range/Units 12:50 PT 10.6 (9.0-12.0) sec INR 1.1 (<1.2) APTT 23.0 (22.0-30.0) sec - Radiology Data Radiology results: report reviewed (CT brain is negative for new event, multiple old lacunar strokes), image reviewed Disposition Clinical Impression: TIA (transient ischemic attack), CVA (cerebral vascular accident), Bradycardia , Ataxia Disposition: ADMITTED IP TO THIS [facility] Condition: Serious Referrals: Lona Marie MD [Primary Care Provider] - 1-2 days
--- NOTE | 2017-06-21 12:15 | CT ---
EXAMINATION TYPE: CT brain wo con DATE OF EXAM: 06/21/2017 COMPARISON: Previous study dated 06/02/2017 HISTORY: Lt sided weakness CT DLP: 1029.9 mGycm Automated exposure control for dose reduction was used. FINDINGS: There is evidence of an old lacunar infarct in the external capsule on the right. There is evidence o f an old lacunar infarct in the caudate nucleus on the left. There is evidence of an old lacunar infa rct in the thalamus on the right. Central structures are midline. There is no evidence of hydrocephalus. No acute focal lesion, mass ef fect or midline shift is seen. I do not see evidence of intracranial blood. There is chronic mucoperiosteal thickening involving the ethmoid air cells bilaterally. IMPRESSION: 1. MULTIPLE OLD LACUNAR INFARCTS. 2. NO ACUTE INTRACRANIAL ABNORMALITY. 3. CHRONIC MUCOPERIOSTEAL THICKENING INVOLVING THE ETHMOID AIR CELLS.
--- NOTE | 2017-06-21 12:21 | XR ---
EXAMINATION TYPE: XR chest 2V DATE OF EXAM: 06/21/2017 HISTORY: Weakness. REFERENCE: Previous study dated 06/02/2017. FINDINGS: Heart size upper limits of normal. There is unfolding and ectasia of the thoracic aorta. Th ere is left basilar airspace disease. There is blunting of the left CP angle. I could not exclude a s mall left effusion. IMPRESSION: 1. BORDERLINE CARDIOMEGALY. 2. LEFT BASILAR AIRSPACE DISEASE. 3. I CANNOT EXCLUDE A SMALL, LEFT EFFUSION.
[2017-06-21 12:56] LABS: Anisocytosis Slight; Basophils # (A) 0.1 k/uL (0-0.2); Basophils % (A) 1 %; Eosinophils # (A) 0.7 k/uL (0-0.7); Eosinophils % (A) 11 %; HCT 43.6 % (39.0-53.0); HGB 14.4 gm/dL (13.0-17.5); Lymphocytes # (A) 2.5 k/uL (1.0-4.8); Lymphocytes % (A) 39 %; MCH 27.8 pg (25.0-35.0); MCHC 33.1 g/dL (31.0-37.0); MCV 84.1 fL (80.0-100.0); Monocytes # (A) 0.5 k/uL (0-1.0); Monocytes % (A) 8 %; Neutrophils # (A) 2.3 k/uL (1.3-7.7); Neutrophils % (A) 37 %; Platelet Count 146 k/uL (150-450); RBC 5.19 m/uL (4.30-5.90); RDW 17.4 % (11.5-15.5); WBC 6.3 k/uL (3.8-10.6)
[2017-06-21 13:06] LABS: INR 1.1 (<1.2); Prothrombin Time 10.6 sec (9.0-12.0)
[2017-06-21] MEDS ORDERED: ASPIRIN 325 MG TAB PO STA (13:08)
[2017-06-21 13:11] LABS: ALT 46 U/L (21-72); AST 36 U/L (17-59); Albumin 3.4 g/dL (3.5-5.0); Alkaline Phosphatase 79 U/L (38-126); Anion Gap 7 mmol/L; Blood Urea Nitrogen 10 mg/dL (9-20); Calcium 9.7 mg/dL (8.4-10.2); Carbon Dioxide 30 mmol/L (22-30); Chloride 104 mmol/L (98-107); Glucose 89 mg/dL (74-99); Magnesium 1.8 mg/dL (1.6-2.3); Phosphorus 4.2 mg/dL (2.5-4.5); Potassium 4.4 mmol/L (3.5-5.1); Sodium 141 mmol/L (137-145); Total Bilirubin 0.5 mg/dL (0.2-1.3); Total Protein 6.8 g/dL (6.3-8.2)
[2017-06-21 13:28] LABS: Creatine Kinase MB 0.3 ng/mL (0.0-2.4); Troponin I 0.015 ng/mL (0.000-0.034)
--- NOTE | 2017-06-21 16:32 | P.CNNES ---
History of Present Illness Consult date: 06/21/17 Requesting physician: Ad Weller Reason for Consult: CVA History of Present Illness: Patient is a pleasant 61-year-old -[place] Citizen male who is being evaluated by the neurology service on 06/21/2017 per the request of Dr. Weller for left- sided weakness. 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 Patient states he ambulates at home with a cane. Patient was recently seen proximally 2 weeks ago for fall at home. Patient states he tripped and fell and landed on a stool injuring his left side of his chest. No rib fracture was noted. There was no increase in left-sided weakness at that time. Patient states he has been recovering well from the fall and left side was back to baseline for him. Patient states over the last 3 days his left-sided weakness has been getting worse. Patient reports he was having increasing difficulty walking. Patient also states he was having urinary frequency and urgency with occasional incontinence. Patient also reports mild dysphagia. Vital signs on admission were temperature 97.3, pulse 56, respiratory rate 15, blood pressure 135/88, and O2 sat was 96% on room air. Labs on admission were WBCs 6.3, RBCs 5.1, hemoglobin 14.4, hematocrit 43.6. Platelets were low at 146. BUN is 10 with creatinine of 1.44. Urinalysis was sent and results are pending. CT of the brain was done on admission which showed multiple old lacunar infarcts. CT showed no acute intracranial abnormality. Patient had carotid Doppler done recently which showed no hemodynamically significant stenosis. Chest x-ray showed borderline cardiomegaly with possible small left effusion. Patient is on Plavix and aspirin in the home setting. At the time of my evaluation, patient's resting comfortably in bed and appears to be in no acute distress. Review of Systems REVIEW OF SYSTEMS: Otherwise unremarkable and noncontributory. Past Medical History Past Medical History: Heart Failure, CVA/TIA, GERD/Reflux, Hypertension, Prostate Disorder, Renal Disease, Sleep Apnea/CPAP/BIPAP Additional Past Medical History / Comment(s): CVA with slight L arm, L leg weakness, TIA, CKD stage III, problem with his "taste buds"- nothing tastes good , gout bilateral feet and wrists, BPH, DJD, BAN- DOES'NT USE CPAP MACHINE History of Any Multi-Drug Resistant Organisms: None Reported Past Surgical History: Orthopedic Surgery Additional Past Surgical History / Comment(s): LT KNEE repair SX, RT WRIST BONE GRAFT, RT EAR SX(PATCH) , EGD, COLONOSOCPY Past Anesthesia/Blood Transfusion Reactions: No Reported Reaction Additional Past Anesthesia/Blood Transfusion Reaction / Comment(s): CLAUSTERPHOBIA Past Psychological History: No Psychological Hx Reported Additional Psychological History / Comment(s): Pt resides with significant other. He uses a cane prn. He drives. Smoking Status: Current some day smoker Past Alcohol Use History: None Reported Additional Past Alcohol Use History / Comment(s): pt states started smoking 3 months ago, only smokes 5 cigarettes a week Past Drug Use History: None Reported - Past Family History Mother Family Medical History: Hypertension Father Family Medical History: Cancer Additional Family Medical History / Comment(s): LUNG CANCER Medications and Allergies Home Medications Medication Instructions Recorded Confirmed Type Cholecalciferol [Vitamin D3] 2,000 unit PO DAILY 01/19/16 06/21/17 History Clopidogrel [Plavix] 75 mg PO DAILY 01/19/16 06/21/17 History Colchicine [Colcrys] 0.6 mg PO DAILY 01/19/16 06/21/17 History Gabapentin [Neurontin] 300 mg PO TID 01/19/16 06/21/17 History Lisinopril 40 mg PO DAILY 01/19/16 06/21/17 History Sennosides [Senna] 8.6 mg PO DAILY PRN 01/19/16 06/21/17 History Tamsulosin HCl [Flomax] 0.4 mg PO DAILY 01/19/16 06/21/17 History amLODIPine [Norvasc] 10 mg PO DAILY 07/23/16 06/21/17 History hydrALAZINE HCL [Apresoline] 100 mg PO TID 07/23/16 06/21/17 History HYDROcodone/APAP 10-325MG [Leckrone 1 tab PO TID PRN 08/22/16 06/21/17 History 10-325] Atorvastatin [Lipitor] 20 mg PO DAILY 10/21/16 06/21/17 History Aspirin EC [Ecotrin Low Dose] 81 mg PO DAILY 05/27/17 06/21/17 History clonazePAM [KlonoPIN] 0.5 mg PO BID 05/27/17 06/21/17 History Carvedilol [Coreg] 12.5 mg PO BID #0 06/03/17 06/21/17 Rx Allergies Allergy/AdvReac Type Severity Reaction Status Date / Time morphine Allergy Anaphylaxis Verified 06/21/17 12:17 pineapple Allergy Swelling Verified 06/21/17 12:17 Physical Examination - Vital Signs Vital Signs: Vital Signs Temp Pulse Pulse Resp BP BP Pulse Ox 06/21/17 15:41 97.1 F L 54 L 17 151/72 99 06/21/17 15:09 97.5 F L 59 L 18 157/91 98 06/21/17 14:38 97.5 F L 59 L 18 157/91 98 06/21/17 13:56 48 L 18 153/97 06/21/17 13:27 50 L 18 141/82 100 06/21/17 12:43 51 L 18 140/86 97 06/21/17 11:15 97.3 F L 56 L 15 135/88 96 Intake and Output 06/21/17 06/21/17 06/21/17 06:59 14:59 22:59 Other: Weight 91.172 kg 92 kg Patient Weight 06/22/17 06:59 Weight 92 kg PHYSICAL EXAM: GENERAL APPEARANCE: Patient is a well-developed, -[place] Citizen male who appears to be in no acute distress. HEENT: Normocephalic, atraumatic, left facial asymmetry is seen. Neck is supple with no masses felt. CARDIOVASCULAR: Regular rate and rhythm. ABDOMEN: Nontender, nondistended. EXTREMITIES: Show no edema or clubbing. NEUROLOGICAL EXAM: Patient is awake, alert, and oriented 3. Speech and language are normal. Strength is 4/5 in left upper extremity and 5-/5 in left lower extremity. Strength is full in right upper and lower extremity. Left facial droop is noted on cranial nerve testing. Sensory exam is normal to light touch in all 4 extremities. No tremors or seizure-like activity is noted. Results - Laboratory Findings CBC and BMP: 06/21/17 12:50 06/21/17 12:50 Abnormal Lab Findings: Abnormal Labs 06/21/17 06/21/17 12:50 12:50 RDW 17.4 H Plt Count 146 L Creatinine 1.44 H Albumin 3.4 L Assessment and Plan Plan: Impression: 1. TIA/CVA 2. Left-sided weakness 3. Ataxia 4. Hypertension 5. History of CVA with left-sided weakness 6. Urinary urgency/incontinence Recommendations: Patient does report increasing weakness and left upper and lower extremity over the last few days. Patient also complains of increased urinary frequency, urgency, and incontinence. Patient does report increased ataxia. Neurological exam does reveal left-sided weakness and left facial droop. It is unclear if this is worse than his residual left-sided weakness from prior stroke. I will order speech therapy consult to evaluate swallow. I will order an MRI of the brain to evaluate possible CVA. Recent carotid Dopplers, as mentioned above, showed no hemodynamically significant stenosis. Continue antiplatelet therapy with Plavix and aspirin. I will order an EEG, fasting lipid panel, and serum homocysteine level. I recommend physical therapy to evaluate and treat. Continue neurological checks. I will continue to follow with you. Further recommendations to follow. Thank you for allowing me to participate in the care of your patient. Feel free to call with any questions or concerns. I performed an examination of the patient and discussed the management with the SERIALS LIBRARIAN. I have reviewed the SERIALS LIBRARIAN notes and agree with the findings and plan of care.
[2017-06-21] MEDS ORDERED: LORazepam 2 MG/ML INJ IV STA (16:50)
[2017-06-21] MEDS: SODIUM CHLORIDE 0.9% 1,000 ML IV SCH ×2 (17:00→23:30)
[2017-06-21] MEDS ORDERED: SENNOSIDES 8.6 MG TAB PO PRN (17:55)
[2017-06-21 19:10] LABS: Cholesterol 107 mg/dL (<200); HDL Cholesterol 28 mg/dL (40-60); LDL Cholesterol,Calculated 67 mg/dL (0-99); Triglycerides 62 mg/dL (<150)
[2017-06-21] MEDS: GABAPENTIN 300 MG CAP PO SCH (20:28)
[2017-06-21] MEDS: CARVEDILOL 12.5 MG TAB PO SCH (20:28)
[2017-06-21] MEDS: clonazePAM 0.5 MG TAB PO SCH (20:28)
[2017-06-21] MEDS: ATORVASTATIN 80 MG TAB PO SCH (20:28)
[2017-06-21 20:43] LABS: Appearance,Urine Clear (Clear); Bilirubin,Urine Negative (Negative); Blood,Urine Negative (Negative); Color,Urine Light Yellow; Glucose,Urine (UA) Negative (Negative); Ketones,Urine Negative (Negative); Leukocyte Esterase,Urine Negative (Negative); Nitrite,Urine Negative (Negative); PH, Urine 7.5 (5.0-8.0); Protein,Urine Negative (Negative); Specific Gravity,Urine 1.006 (1.001-1.035); Urobilinogen,Urine <2.0 mg/dL (<2.0)
[2017-06-21] MEDS ORDERED: hydrALAZINE HCL 50 MG TAB PO SCH (22:00)
--- NOTE | 2017-06-21 22:19 | P.HPIM ---
History of Present Illness H&P Date: 06/21/17 Chief Complaint: Loss of balance and unsteady gait Patient is a 61-year-old male with a known history of CVA with left-sided weakness, hypertension, obstructive sleep apnea on CPAP at home and chronic kidney disease came to ER with complaints of increasing left-sided weakness and also loss of balance for the past 2-3 days. Patient usually ambulates at home. Patient does have left-sided weakness upper more than lower. Patient has been having increased difficulty in walking due to loss of balance. Otherwise patient denied any fever or chills. No complaints of chest pain or shortness of breath. Patient says that his been having urinary frequency and urgency and occasional incontinence. Denied any dysarthria speech difficulty. Apparently patient had a fall at home 2 weeks ago. At that time he did not have any increase in left-sided weakness. Patient says that he had a cold about 7 days ago which has improved now. Patient's girlfriend has cold. Patient has been taking aspirin and Plavix at home for secondary stroke prophylaxis. CT head showed no acute process. Showed multiple old lacunar infarcts. Carotid duplex showed no him currently significant stenosis. Chest x-ray showed borderline cardio myopathy with small left pleural effusion. Denied any nausea vomiting or abdominal pain. Review of Systems Constitutional: Patient denies any fever or chills . No generalized weakness or weight loss. Abdomen: Patient denied nausea vomiting and diarrhea and abdominal pain. Cardiovascular: Patient denies any chest pain or short of breath no palpitations. Respiratory: patient denied any cough is from production. No shortness of breath Neurologic: Patient denied any numbness or tingling headache. Does have loss of balance and left-sided weakness. No headache or dizziness Musculoskeletal: Patient denies any complaints of joint swelling or deformity. Skin: Negative Psychiatric: Negative Endocrine: No heat or cold intolerance. No recent weight gain. Genitourinary: No dysuria or hematuria. Patient does have frequency and incontinence All other 14 point ROS negative except the above Past Medical History Past Medical History: Heart Failure, CVA/TIA, GERD/Reflux, Hypertension, Prostate Disorder, Renal Disease, Sleep Apnea/CPAP/BIPAP Additional Past Medical History / Comment(s): CVA with slight L arm, L leg weakness, TIA, CKD stage III, problem with his "taste buds"- nothing tastes good , gout bilateral feet and wrists, BPH, DJD, BAN- DOES'NT USE CPAP MACHINE History of Any Multi-Drug Resistant Organisms: None Reported Past Surgical History: Orthopedic Surgery Additional Past Surgical History / Comment(s): LT KNEE repair SX, RT WRIST BONE GRAFT, RT EAR SX(PATCH) , EGD, COLONOSOCPY Past Anesthesia/Blood Transfusion Reactions: No Reported Reaction Additional Past Anesthesia/Blood Transfusion Reaction / Comment(s): CLAUSTERPHOBIA Past Psychological History: No Psychological Hx Reported Additional Psychological History / Comment(s): Pt resides with significant other. He uses a cane prn. He drives. Smoking Status: Current some day smoker Past Alcohol Use History: None Reported Additional Past Alcohol Use History / Comment(s): pt states started smoking 3 months ago, only smokes 5 cigarettes a week Past Drug Use History: None Reported - Past Family History Mother Family Medical History: Hypertension Father Family Medical History: Cancer Additional Family Medical History / Comment(s): LUNG CANCER Medications and Allergies Home Medications Medication Instructions Recorded Confirmed Type Cholecalciferol [Vitamin D3] 2,000 unit PO DAILY 01/19/16 06/21/17 History Clopidogrel [Plavix] 75 mg PO DAILY 01/19/16 06/21/17 History Colchicine [Colcrys] 0.6 mg PO DAILY 01/19/16 06/21/17 History Gabapentin [Neurontin] 300 mg PO TID 01/19/16 06/21/17 History Lisinopril 40 mg PO DAILY 01/19/16 06/21/17 History Sennosides [Senna] 8.6 mg PO DAILY PRN 01/19/16 06/21/17 History Tamsulosin HCl [Flomax] 0.4 mg PO DAILY 01/19/16 06/21/17 History amLODIPine [Norvasc] 10 mg PO DAILY 07/23/16 06/21/17 History hydrALAZINE HCL [Apresoline] 100 mg PO TID 07/23/16 06/21/17 History HYDROcodone/APAP 10-325MG [Andes 1 tab PO TID PRN 08/22/16 06/21/17 History 10-325] Atorvastatin [Lipitor] 20 mg PO DAILY 10/21/16 06/21/17 History Aspirin EC [Ecotrin Low Dose] 81 mg PO DAILY 05/27/17 06/21/17 History clonazePAM [KlonoPIN] 0.5 mg PO BID 05/27/17 06/21/17 History Carvedilol [Coreg] 12.5 mg PO BID #0 06/03/17 06/21/17 Rx Allergies Allergy/AdvReac Type Severity Reaction Status Date / Time morphine Allergy Anaphylaxis Verified 06/21/17 12:17 pineapple Allergy Swelling Verified 06/21/17 12:17 Physical Exam Vitals: Vital Signs Temp Pulse Pulse Resp BP BP Pulse Ox 06/21/17 20:00 97.5 F L 18 138/83 98 06/21/17 18:30 129/83 06/21/17 17:30 49 L 17 132/82 97 06/21/17 16:30 147/83 06/21/17 15:41 97.1 F L 54 L 17 151/72 99 06/21/17 15:09 97.5 F L 59 L 18 157/91 98 06/21/17 14:38 97.5 F L 59 L 18 157/91 98 06/21/17 13:56 48 L 18 153/97 06/21/17 13:27 50 L 18 141/82 100 06/21/17 12:43 51 L 18 140/86 97 06/21/17 11:15 97.3 F L 56 L 15 135/88 96 Intake and Output 06/21/17 06/21/17 06/21/17 06:59 14:59 22:59 Intake Total 240 Output Total 1100 Balance -860 Intake: Oral 240 Output: Urine 1100 Other: Voiding Method Urinal Weight 91.172 kg 92 kg Patient Weight 06/22/17 06:59 Weight 92 kg PHYSICAL EXAMINATION: Patient is lying in the bed comfortably, no acute distress, awake alert and oriented.. HEENT: Normocephalic. Neck is supple. Pupils reactive. Nostrils clear. Oral cavity is moist. Ears reveal no drainage. Neck reveals no JVD, carotid bruits, or thyromegaly. CHEST EXAMINATION: Trachea is central. Symmetrical expansion. Lung huitron clear to auscultation and percussion. CARDIAC: Normal S1, S2 with no gallops. No murmurs ABDOMEN: Soft. Bowel sounds normal. No organomegaly. No abdominal bruits. Extremities: reveal no edema. No clubbing or cyanosis Neurologically awake, alert, oriented x3 with well-coordinated movements. Patient does have left-sided weakness upper greater than lower and facial droop Skin: No rash or skin lesions. Psychiatric: Cooperative. Nonsuicidal Musculoskeletal: No joint swelling or deformity. Normal range of motion. Results CBC & Chem 7: 06/21/17 12:50 06/21/17 12:50 Labs: Abnormal Lab Results - Last 24 Hours (Table) 06/21/17 06/21/17 06/21/17 Range/Units 12:50 12:50 18:24 RDW 17.4 H (11.5-15.5) % Plt Count 146 L (150-450) k/uL Creatinine 1.44 H (0.66-1.25) mg/dL Albumin 3.4 L (3.5-5.0) g/dL HDL Cholesterol 28 L (40-60) mg/dL Thrombosis Risk Factor Assmnt - DVT/VTE Prophylaxis DVT/VTE Prophylaxis: Pharmacologic Prophylaxis ordered - Choose All That Apply Any of the Below Risk Factors Present?: No Each Factor Represents 1 point: Obesity (BMI >25) Other Risk Factors: No Thrombosis Risk Factor Assessment Total Risk Factor Score: 1 Thrombosis Risk Factor Assessment Level: Very Low Risk Assessment and Plan Assessment: Loss of balance along with worsening left-sided weakness. Likely due to acute CVA Recent admission on 06/03/2017 status post mechanical fall and suspected TIA History of CVA with left-sided weakness Hypertension CK D stage III Obstructive sleep apnea on CPAP at home GERD DVT prophylaxis Plan: Patient will be continued on aspirin and Plavix. Speech therapy consult to evaluate for swallowing. Recent stroke workup including CT head and carotid duplex showed no acute abnormality. Repeat CVA during this admission showed no acute process noted. Patient was seen by neurology and MRI of the brain was ordered. EEG was ordered as well. Will start on PTOT and follow closely. We' ll start back on home medications and titrate blood pressure medications. Continue with neuro checks and further recommendations based on the clinical course. Time with Patient: Greater than 30
[2017-06-21] MEDS: HYDROcodone/APAP 5-325MG 1 EACH TAB PO PRN (23:35)
[2017-06-22] MEDS: CARVEDILOL 12.5 MG TAB PO SCH (06:41)
[2017-06-22] MEDS: amLODIPine 10 MG TAB PO SCH (07:47)
[2017-06-22] MEDS: CHOLECALCIFEROL 1,000 UNIT TAB PO SCH (07:47)
[2017-06-22] MEDS: HYDROcodone/APAP 5-325MG 1 EACH TAB PO PRN ×3 (07:47→20:53)
[2017-06-22] MEDS: clonazePAM 0.5 MG TAB PO SCH ×2 (07:49→20:53)
[2017-06-22] MEDS: COLCHICINE 0.6 MG TAB PO SCH (07:49)
[2017-06-22] MEDS: CLOPIDOGREL 75 MG TAB PO SCH (07:49)
[2017-06-22] MEDS: GABAPENTIN 300 MG CAP PO SCH ×3 (07:49→20:53)
[2017-06-22] MEDS: TAMSULOSIN 0.4 MG CAP.ER.24H PO SCH (07:50)
[2017-06-22] MEDS: SODIUM CHLORIDE 0.9% 1,000 ML IV SCH (08:40)
[2017-06-22] MEDS ORDERED: LISINOPRIL 20 MG TAB PO SCH ×2 (09:00→22:57)
[2017-06-22] MEDS: ASPIRIN 325 MG TAB PO SCH (11:43)
--- NOTE | 2017-06-22 15:43 | P.PN ---
Subjective Progress Note Date: 06/22/17 Principal diagnosis: Patient is a pleasant 61-year-old -English male who is being followed by the neurology service for left-sided weakness and possible CVA. 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 Patient ambulates at home with a cane. Patient reports left-sided weakness has been getting worse over the last 3 days. Patient reports increased difficulty with ambulation. Patient also reports increased urinary frequency and urgency with occasional incontinence. Urinalysis was done and was negative. Patient states left-sided weakness is back to baseline today. Patient had a speech consult for swallow which was negative for any aspiration. No new neurological complaints today. As you recall, CT showed no acute intracranial abnormality but did show multiple old lacunar infarcts. Recent carotid Doppler was done and showed no hemodynamically significant stenosis. At the time of my evaluation, patient is resting comfortably in bed and appears to be in no acute distress. Objective - Vital Signs Vital signs: Vital Signs Temp 98.7 F 06/22/17 14:30 Pulse 49 L 06/22/17 14:40 Resp 18 06/22/17 14:30 BP 108/69 06/22/17 14:30 Pulse Ox 97 06/22/17 14:30 Intake & Output 06/21/17 06/22/17 06/22/17 18:59 06:59 18:59 Intake Total 240 540 Output Total 700 600 Balance -460 -600 540 Weight 92 kg 96 kg Intake: Oral 240 540 Output: Urine 700 600 Other: Voiding Method Urinal Urinal # Voids 1 1 - Exam PHYSICAL EXAM: GENERAL APPEARANCE: Patient is a well-developed, -English male who appears to be in no acute distress. HEENT: Normocephalic, atraumatic, no facial asymmetry is seen. Neck is supple with no masses felt. CARDIOVASCULAR: Regular rate and rhythm. ABDOMEN: Nontender, nondistended. EXTREMITIES: Show no edema or clubbing. Left upper extremity atrophy NEUROLOGICAL EXAM: Patient is awake, alert, and oriented 3. Speech and language are normal. Strength is 4/5 in the left upper extremity and 5-/5 in the left lower extremity. Strength is full in right upper and lower extremity. Left facial droop is noted on cranial nerve testing. Sensory exam is normal to light touch in all 4 extremities. No tremors or seizure-like activity is noted. - Labs CBC & Chem 7: 06/21/17 12:50 06/21/17 12:50 Labs: Abnormal Lab Results - Last 24 Hours (Table) 06/21/17 06/21/17 Range/Units 18:24 18:24 HDL Cholesterol 28 L (40-60) mg/dL Homocysteine 17.21 H (4.00-14.00) umol/L Microbiology - Last 24 Hours (Table) 06/21/17 15:45 Urine Culture - Preliminary Urine,Voided Assessment and Plan Plan: Impression: 1. TIA/CVA 2. Left-sided weakness 3. Ataxia 4. Hypertension 5. History of CVA with left-sided weakness 6. Urinary urgency/incontinence Recommendations: Patient does report increasing weakness and left upper and lower extremity over the last few days. Patient does report increased ataxia. Neurological exam does reveal left-sided weakness and left facial droop. It is unclear if this is worse than his residual left-sided weakness from prior stroke. Speech therapy evaluated the patient and no aspiration noted. I will order an MRI of the brain to evaluate possible CVA. Recent carotid Dopplers, as mentioned above, showed no hemodynamically significant stenosis. Continue antiplatelet therapy with Plavix and aspirin. I will order an EEG. His fasting lipid panel was within normal limits except for low HDL of 28. Serum homocysteine level was elevated at 17.21. I will start him on Foltx daily. I recommend physical therapy to evaluate and treat. Continue neurological checks. I will continue to follow with you. Further recommendations to follow. I performed an examination of the patient and discussed the management with the SLAG WORKER. I have reviewed the SLAG WORKER notes and agree with the findings and plan of care.
[2017-06-22] MEDS: CARVEDILOL 3.125 MG TAB PO SCH (17:24)
[2017-06-22] MEDS: ATORVASTATIN 80 MG TAB PO SCH (20:53)
[2017-06-22 23:35] VITALS: RESP 16
--- NOTE | 2017-06-23 01:30 | P.PN ---
Subjective Progress Note Date: 06/22/17 Principal diagnosis: acute CVA/TIA Patient is a 61-year-old male with a known history of CVA with left-sided weakness, hypertension, obstructive sleep apnea on CPAP at home and chronic kidney disease came to ER with complaints of increasing left-sided weakness and also loss of balance for the past 2-3 days. Patient usually ambulates at home. Patient does have left-sided weakness upper more than lower. Patient has been having increased difficulty in walking due to loss of balance. Otherwise patient denied any fever or chills. No complaints of chest pain or shortness of breath. Patient says that his been having urinary frequency and urgency and occasional incontinence. Denied any dysarthria speech difficulty. Apparently patient had a fall at home 2 weeks ago. At that time he did not have any increase in left-sided weakness. Patient says that he had a cold about 7 days ago which has improved now. Patient's girlfriend has cold. Patient has been taking aspirin and Plavix at home for secondary stroke prophylaxis. CT head showed no acute process. Showed multiple old lacunar infarcts. Carotid duplex showed no him currently significant stenosis. Chest x-ray showed borderline cardio myopathy with small left pleural effusion. Denied any nausea vomiting or abdominal pain. 06/22/2017 patient says thathis dizziness and off balanceis much improved now. Able to participatein the physical therapy. otherwise patient is scheduled form[facility] on Friday heart rate is in low50s. coreg dose has been reduced Hydralazine has been discontinuedsince the blood pressure is not elevated. Reduced dose oflisinopril to 20 mg daily. Continued onNorvasc Denied anyfever or chills. No chest pain no shortness of breath. No other acute overnight issues. All other review of systems negative except above current medications reviewed Objective - Vital Signs Vital signs: Vital Signs Temp 98.7 F 06/22/17 14:30 Pulse 49 L 06/22/17 14:40 Resp 18 06/22/17 14:30 BP 108/69 06/22/17 14:30 Pulse Ox 97 06/22/17 14:30 Intake & Output 06/22/17 06/22/17 06/23/17 06:59 18:59 06:59 Intake Total 780 Output Total 600 Balance -600 780 Weight 96 kg Intake: Oral 780 Output: Urine 600 Other: Voiding Method Urinal Urinal # Voids 1 1 0 - Exam Patient is lying in the bed comfortably, no acute distress, awake alert and oriented.. HEENT: Normocephalic. Neck is supple. Pupils reactive. Nostrils clear. Oral cavity is moist. Ears reveal no drainage. Neck reveals no JVD, carotid bruits, or thyromegaly. CHEST EXAMINATION: Trachea is central. Symmetrical expansion. Lung huitron clear to auscultation and percussion. CARDIAC: Normal S1, S2 with no gallops. No murmurs ABDOMEN: Soft. Bowel sounds normal. No organomegaly. No abdominal bruits. Extremities: reveal no edema. No clubbing or cyanosis Neurologically awake, alert, oriented x3 with well-coordinated movements. Patient does have left-sided weakness upper greater than lower and facial droop Skin: No rash or skin lesions. Psychiatric: Cooperative. Nonsuicidal Musculoskeletal: No joint swelling or deformity. Normal range of motion. - Labs CBC & Chem 7: 06/21/17 12:50 06/21/17 12:50 Labs: Abnormal Lab Results - Last 24 Hours (Table) 06/21/17 Range/Units 18:24 Homocysteine 17.21 H (4.00-14.00) umol/L Microbiology - Last 24 Hours (Table) 06/21/17 15:45 Urine Culture - Preliminary Urine,Voided Assessment and Plan Assessment: Loss of balance along with worsening left-sided weakness. Likely due to acute CVA Recent admission on 06/03/2017 status post mechanical fall and suspected TIA History of CVA with left-sided weakness sinus bradycardia Asymptomatic Hypertension.controlled CK D stage III Obstructive sleep apnea on CPAP at home GERD DVT prophylaxis Plan: Patient will be continued on aspirin and Plavix. Speech therapy consult to evaluate for swallowing. Recent stroke workup including CT head and carotid duplex showed no acute abnormality. Repeat CVA during this admission showed no acute process noted. Patient was seen by neurology and MRI of the brain was ordered. EEG was ordered as well. Will start on PTOT and follow closely. We'll start back on home medications and titrate blood pressure medications. Continue with neuro checks and further recommendations based on the clinical course. Time with Patient: Greater than 30
[2017-06-23] MEDS: SODIUM CHLORIDE 0.9% 1,000 ML IV SCH (04:14)
[2017-06-23 06:28] LABS: Anisocytosis Slight; Basophils # (A) 0.1 k/uL (0-0.2); Basophils % (A) 1 %; Eosinophils # (A) 0.7 k/uL (0-0.7); Eosinophils % (A) 12 %; HCT 40.5 % (39.0-53.0); HGB 13.1 gm/dL (13.0-17.5); Lymphocytes % (A) 50 %; MCH 27.5 pg (25.0-35.0); MCHC 32.3 g/dL (31.0-37.0); MCV 85.1 fL (80.0-100.0); Mean Platelet Volume 9.5; Monocytes # (A) 0.5 k/uL (0-1.0); Monocytes % (A) 8 %; Neutrophils # (A) 1.5 k/uL (1.3-7.7); Neutrophils % (A) 25 %; Platelet Count 128 k/uL (150-450); RBC 4.76 m/uL (4.30-5.90); RDW 16.8 % (11.5-15.5)
[2017-06-23 06:35] LABS: Calcium 9.3 mg/dL (8.4-10.2); Potassium 4.5 mmol/L (3.5-5.1)
[2017-06-23 09:56] VITALS: BMI 31.9
[2017-06-23] MEDS ORDERED: LORazepam 2 MG/ML INJ IV STA (10:14)
--- NOTE | 2017-06-23 11:14 | MR ---
EXAMINATION TYPE: MR brain wo con DATE OF EXAM: 06/23/2017 COMPARISON: CT brain from 2 days ago. MRI brain from October 23, 2016. HISTORY: rule out CVA per order. Left-sided weakness on admission 2 days ago. History of 2 prior str okes. TECHNIQUE: Multiplanar, multisequence imaging of the brain and brainstem is performed without IV cont rast. FINDINGS: Diffusion weighted images demonstrate no evidence of a recent infarct or other diffusion abnormality. There is no worrisome extra-axial fluid collection. The ventricular system and cisternal spaces are normal in size and appearance. The brain volume is age appropriate. There are focal and confluent ar eas of T2 hyperintensity seen throughout the white matter bilaterally. Lesions are nonspecific in jean earance and distribution. Old lacunar infarct right external capsule region is redemonstrated on axia l image 16. Midline structures demonstrate normal morphology. The craniocervical junction appears within normal limits. Normal vascular flow voids are present. Mild to moderate mucosal thickening involving ethmoid sinuses bilaterally is redemonstrated improved from prior MRI. Remainder paranasal sinuses are clear . The globes are intact bilaterally. IMPRESSION: 1. No evidence of a recent infarct. 2. Advanced nonspecific white matter changes, differential includes product of chronic small vessel i schemic change, demyelinating disease is in differential. No significant progression from prior MRI.
[2017-06-23] MEDS ORDERED: CYANOCOBALAMIN-FA-PYRIDOXINE 1 EACH TAB PO SCH (12:00)
--- NOTE | 2017-06-23 15:15 | P.PN ---
Subjective Progress Note Date: 06/23/17 Principal diagnosis: Patient is a pleasant 61-year-old -Citizen Of [place] male who is being followed by the neurology service for left-sided weakness and possible CVA. 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 Patient ambulates at home with a cane. Patient reports left-sided weakness has been getting worse over the last 3 days. Patient reports increased difficulty with ambulation. Patient also reports increased urinary frequency and urgency with occasional incontinence. Urinalysis was done and was negative. Patient states left-sided weakness is back to baseline today. Patient had a speech consult for swallow which was negative for any aspiration. No new neurological complaints today. As you recall, CT showed no acute intracranial abnormality but did show multiple old lacunar infarcts. Recent carotid Doppler was done and showed no hemodynamically significant stenosis. At the time of my evaluation, patient is resting comfortably in bed and appears to be in no acute distress. 06/23/2017 Patient is a pleasant 61-year-old -Citizen Of [place] male who is being followed by the neurology service for left-sided weakness. Patient has a history of prior stroke with right MCA distribution infarct in 2012 leaving him with residual left-sided weakness. Patient came to [facility] with increasing weakness and urinary incontinence. Patient states his left-sided weakness is back to baseline. Patient had swallow study done which was negative for any aspiration. No new neurological complaints at this time. CT showed no acute intracranial abnormality but did show multiple old lacunar infarcts. Patient recent carotid Doppler was done and showed no hemodynamically significant stenosis. Patient had MRI done today which showed no evidence of a recent infarct. MRI did show advanced nonspecific white matter changes consistent with probable chronic small vessel ischemic disease. No significant progression from prior MRI. At the time of my evaluation, patient's resting comfortably in bed and appears to be in no acute distress. Objective - Vital Signs Vital signs: Vital Signs Temp 97.0 F L 06/23/17 14:00 Pulse 47 L 06/23/17 14:00 Resp 16 06/23/17 14:00 BP 128/72 06/23/17 14:00 Pulse Ox 98 06/23/17 14:00 Intake & Output 06/22/17 06/23/17 06/23/17 18:59 06:59 18:59 Intake Total 780 120 Output Total 350 Balance 780 -350 120 Weight 98.2 kg 98.2 kg Intake: Oral 780 120 Output: Urine 350 Other: Voiding Method Urinal Toilet # Voids 1 1 - Labs CBC & Chem 7: 06/23/17 06:09 06/23/17 06:09 Labs: Abnormal Lab Results - Last 24 Hours (Table) 06/23/17 06/23/17 Range/Units 06:09 06:09 RDW 16.8 H (11.5-15.5) % Plt Count 128 L (150-450) k/uL Carbon Dioxide 31 H (22-30) mmol/L Creatinine 1.60 H (0.66-1.25) mg/dL Microbiology - Last 24 Hours (Table) 06/21/17 15:45 Urine Culture - Final Urine,Voided Assessment and Plan Plan: Impression: 1. TIA 2. Left-sided weakness 3. Ataxia 4. Hypertension 5. History of CVA with left-sided weakness 6. Urinary urgency/incontinence Recommendations: Patient states his weakness is back to baseline. Patient is working with physical therapy. Neurological exam does reveal left-sided weakness and left facial droop which is chronic from prior stroke. Speech therapy evaluated the patient and no aspiration noted. MRI of the brain showed no evidence of a recent infarct. Recent carotid Dopplers, as mentioned above, showed no hemodynamically significant stenosis. Continue antiplatelet therapy with Plavix and aspirin. EEG was done and results are pending. His fasting lipid panel was within normal limits except for low HDL of 28. Serum homocysteine level was elevated at 17.21 and he was started on Foltx daily. I recommend physical therapy to continue. Continue neurological checks. Barring any abnormalities on the EEG, I will continue to follow with you on an as- needed basis. Patient is stable from a neurological standpoint for discharge. Feel free to call with any questions or concerns. I performed an examination of the patient and discussed the management with the ANTHROPOLOGY PROFESSOR. I have reviewed the ANTHROPOLOGY PROFESSOR notes and agree with the findings and plan of care.
[2017-06-23] MEDS: CARVEDILOL 3.125 MG TAB PO SCH (16:20)
[2017-06-23] MEDS: CLOPIDOGREL 75 MG TAB PO SCH (16:21)
[2017-06-23] MEDS: CHOLECALCIFEROL 1,000 UNIT TAB PO SCH (16:21)
[2017-06-23] MEDS: COLCHICINE 0.6 MG TAB PO SCH (16:21)
[2017-06-23] MEDS: clonazePAM 0.5 MG TAB PO SCH (16:21)
[2017-06-23] MEDS: amLODIPine 10 MG TAB PO SCH (16:21)
[2017-06-23] MEDS: GABAPENTIN 300 MG CAP PO SCH ×3 (16:21→17:37)
[2017-06-23] MEDS: ASPIRIN 325 MG TAB PO SCH (16:21)
[2017-06-23] MEDS: TAMSULOSIN 0.4 MG CAP.ER.24H PO SCH (16:22)
--- NOTE | 2017-06-23 18:00 | EEG ---
ELECTROENCEPHALOGRAM REPORT DATE OF SERVICE: 06/23/2017. REASON FOR TESTING: Stroke. DESCRIPTION OF THE PROCEDURE: This EEG was performed using a 21 channel digital electroencephalograph, following international 10-20 system. DESCRIPTION OF THE RECORDING: From the beginning of the tracing, and with patient's eyes closed, the background rhythm was mostly consisting of 8-9 Hz alpha frequency in the posterior occipital leads. No obvious asymmetry is seen. Frequent lead artifacts are noticed. Photic stimulation was performed with a good driving response seen. No pathological waves were elicited. Hyperventilation was not performed. The patient remains awake throughout the tracing. Rare movement artifacts are seen. No epileptiform discharges were noticed. His EKG lead showed a regular rate and rhythm. INTERPRETATION: This awake EEG can be considered within normal limits. There is no asymmetry seen. No epileptiform discharges were noticed. The absence of epileptiform discharges does not rule out the diagnosis of epilepsy, therefore clinical correlation is recommended. MMBARNEY / PRETTY: [id number] /
[2017-06-23 18:07] VITALS: BP 126/70; PULSE 45; TEMP 97.4
--- NOTE | 2017-06-24 00:37 | P.DS ---
Providers Date of admission: 06/21/17 13:08 Expected date of discharge: 06/23/17 Attending physician: Ad Weller Consults: 06/21/17 13:08 Consult Physician Routine Consulting Provider: Farooq Caban Consult Reason/Comments: cva Do you want consulting provider notified?: Yes Primary care physician: Lona Marie Hospital Course: Discharge diagnosis Loss of balance along with worsening left-sided weakness. Rule out acute CVA. Improved symptomatically. Recent admission on 06/03/2017 status post mechanical fall and suspected TIA History of CVA with left-sided weakness sinus bradycardia discontinued Coreg Hypertension.controlled CK D stage III Obstructive sleep apnea on CPAP at home GERD DVT prophylaxis Hospital course Patient is a 61-year-old male with a known history of CVA with left-sided weakness, hypertension, obstructive sleep apnea on CPAP at home and chronic kidney disease came to ER with complaints of increasing left-sided weakness and also loss of balance for the past 2-3 days. Patient usually ambulates at home. Patient does have left-sided weakness upper more than lower. Patient has been having increased difficulty in walking due to loss of balance. Otherwise patient denied any fever or chills. No complaints of chest pain or shortness of breath. Patient says that his been having urinary frequency and urgency and occasional incontinence. Denied any dysarthria speech difficulty. Apparently patient had a fall at home 2 weeks ago. At that time he did not have any increase in left-sided weakness. Patient says that he had a cold about 7 days ago which has improved now. Patient's girlfriend has cold. Patient has been taking aspirin and Plavix at home for secondary stroke prophylaxis. CT head showed no acute process. Showed multiple old lacunar infarcts. Carotid duplex showed no him currently significant stenosis. Chest x-ray showed borderline cardio myopathy with small left pleural effusion. Denied any nausea vomiting or abdominal pain. 06/22/2017 patient says thathis dizziness and off balanceis much improved now. Able to participatein the physical therapy. otherwise patient is scheduled formRI on Friday heart rate is in low50s. coreg dose has been reduced Hydralazine has been discontinuedsince the blood pr 06/23/2017 Patient denied any new complaints today. Denied any complaints of dizziness or lightheadedness. Coreg has been discontinued due to bradycardia. Blood pressure is is in good control. Otherwise MRI showed no acute CVA. Patient is cleared from neurology standpoint and is stable to be discharged home. Blood pressure medications have been titrated. Discontinued Coreg and hydralazine. Lower dose of lisinopril to 20 mg daily and continue with Norvasc 10 mg daily. Recommended to follow with primary care physician in 1-3 days otherwise patient is stable to be discharged home.. Patient will be continued on aspirin and Plavix. Speech therapy consult to evaluate for swallowing. Recent stroke workup including CT head and carotid duplex showed no acute abnormality. MRI showed no acute CVA. Physical Examination Patient is lying in the bed comfortably, no acute distress, awake alert and oriented.. HEENT: Normocephalic. Neck is supple. Pupils reactive. Nostrils clear. Oral cavity is moist. Ears reveal no drainage. Neck reveals no JVD, carotid bruits, or thyromegaly. CHEST EXAMINATION: Trachea is central. Symmetrical expansion. Lung huitron clear to auscultation and percussion. CARDIAC: Normal S1, S2 with no gallops. No murmurs ABDOMEN: Soft. Bowel sounds normal. No organomegaly. No abdominal bruits. Extremities: reveal no edema. No clubbing or cyanosis Neurologically awake, alert, oriented x3 with well-coordinated movements. Patient does have left-sided weakness upper greater than lower and facial droop Skin: No rash or skin lesions. Psychiatric: Cooperative. Nonsuicidal Musculoskeletal: No joint swelling or deformity. Normal range of motion. Patient Condition at Discharge: Serious Plan - Discharge Summary Discharge Rx Participant: No New Discharge Prescriptions: New Lisinopril [Zestril] 20 mg PO DAILY #30 tab Continue Sennosides [Senna] 8.6 mg PO DAILY PRN PRN Reason: Constipation Colchicine [Colcrys] 0.6 mg PO DAILY Cholecalciferol [Vitamin D3] 2,000 unit PO DAILY Tamsulosin HCl [Flomax] 0.4 mg PO DAILY Gabapentin [Neurontin] 300 mg PO TID Clopidogrel [Plavix] 75 mg PO DAILY amLODIPine [Norvasc] 10 mg PO DAILY HYDROcodone/APAP 10-325MG [[place] 10-325] 1 tab PO TID PRN PRN Reason: Pain Atorvastatin [Lipitor] 20 mg PO DAILY Aspirin EC [Ecotrin Low Dose] 81 mg PO DAILY clonazePAM [KlonoPIN] 0.5 mg PO BID Discontinued Lisinopril 40 mg PO DAILY hydrALAZINE HCL [Apresoline] 100 mg PO TID Carvedilol [Coreg] 12.5 mg PO BID #0 Discharge Medication List Cholecalciferol [Vitamin D3] 2,000 unit PO DAILY 01/19/16 [History] Clopidogrel [Plavix] 75 mg PO DAILY 01/19/16 [History] Colchicine [Colcrys] 0.6 mg PO DAILY 01/19/16 [History] Gabapentin [Neurontin] 300 mg PO TID 01/19/16 [History] Sennosides [Senna] 8.6 mg PO DAILY PRN 01/19/16 [History] Tamsulosin HCl [Flomax] 0.4 mg PO DAILY 01/19/16 [History] amLODIPine [Norvasc] 10 mg PO DAILY 07/23/16 [History] HYDROcodone/APAP 10-325MG [[place] 10-325] 1 tab PO TID PRN 08/22/16 [History] Atorvastatin [Lipitor] 20 mg PO DAILY 10/21/16 [History] Aspirin EC [Ecotrin Low Dose] 81 mg PO DAILY 05/27/17 [History] clonazePAM [KlonoPIN] 0.5 mg PO BID 05/27/17 [History] Lisinopril [Zestril] 20 mg PO DAILY #30 tab 06/23/17 [Rx] Follow up Appointment(s)/Referral(s): Lona Marie MD [Primary Care Provider] - 07/02/17 10:45 am (Previously scheduled appointment) Farooq Caban MD [STAFF PHYSICIAN] - 2 Weeks (Office is closed. Please call to make appointment) Patient Instructions/Handouts: Transient Ischemic Attack (DC) Discharge Disposition: HOME SELF-CARE
== END 2017-06-23 18:03 | disposition home or self-care (01) | DRG 69 ==
LOC: EC 11:09 → 6SEL 13:08
PROVIDERS: ADMIT Hospitalist; ATTEND Hospitalist
DX: G45.9 Transient cerebral ischemic attack, unspecified (principal); I42.9 Cardiomyopathy, unspecified; I13.0 Hypertensive heart and chronic kidney disease with heart failure and stage 1 through stage 4 chronic kidney disease, or unspecified chronic kidney disease; I50.9 Heart failure, unspecified; I69.354 Hemiplegia and hemiparesis following cerebral infarction affecting left non-dominant side; R13.10 Dysphagia, unspecified; N18.3 Chronic kidney disease, stage 3 (moderate); R29.703 NIHSS score 3; R40.2142 Coma scale, eyes open, spontaneous, at arrival to emergency department; R40.2362 Coma scale, best motor response, obeys commands, at arrival to emergency department; R40.2252 Coma scale, best verbal response, oriented, at arrival to emergency department; G47.33 Obstructive sleep apnea (adult) (pediatric); N40.1 Benign prostatic hyperplasia with lower urinary tract symptoms; N39.498 Other specified urinary incontinence; R35.0 Frequency of micturition; R39.15 Urgency of urination; K21.9 Gastro-esophageal reflux disease without esophagitis; M10.9 Gout, unspecified; M19.91 Primary osteoarthritis, unspecified site; F40.240 Claustrophobia; F17.210 Nicotine dependence, cigarettes, uncomplicated; R27.0 Ataxia, unspecified; Z79.82 Long term (current) use of aspirin; Z79.02 Long term (current) use of antithrombotics/antiplatelets; Z79.899 Other long term (current) drug therapy; Z88.5 Allergy status to narcotic agent; Z91.018 Allergy to other foods; W01.0XXA Fall on same level from slipping, tripping and stumbling without subsequent striking against object, initial encounter
CPT/HCPCS: 36415; 70450; 70551; 71046; 80048; 80053; 80061; 81003; 82550; 82553; 83090; 83735; 84100; 84484; 85025; 85610; 85730; 87086; 93005; 95819; 96360; 96361; 99285

== ENCOUNTER 2018-03-25 22:56 | Emergency (ER) | payer OTHER ==
[2018-03-25 23:35] VITALS: TEMP 98.1
--- NOTE | 2018-03-26 00:39 | ED ---
General Adult HPI - General Chief complaint: Back Pain/Injury Stated complaint: BACK PAIN,ENT Time Seen by Provider: 03/26/18 00:15 Source: patient, RN notes reviewed Mode of arrival: wheelchair Limitations: no limitations - History of Present Illness Initial comments: 62-year-old male presents to the emergency department for a chief complaint of back pain times one day. Patient states he has been inside the house for 3 weeks. He states that today he went for a walk outside when he came back and he noticed low back pain. Patient states he may have strained it when he was standing up out of bed. He states the pain is mostly in the left low back. He denies any midline pain. Patient admits to pain in the right low back as well. He states it is worsened with movement. He denies any radiating pain down the legs, numbness in the legs, or weakness in the legs. He denies any fevers or chills at home. He denies any urinary symptoms. He denies any history of IV drug abuse, chronic steroid use, history of cancer. Patient denies a history of kidney stones. Patient does admit to having chest pain a few days ago when he had a cough. He states that the cough and chest pain has since completely resolved. Patient has no other complaints at this time including shortness of breath, chest pain, abdominal pain, nausea or vomiting, headache, or visual changes. - Related Data Home Medications Medication Instructions Recorded Confirmed Cholecalciferol [Vitamin D3] 2,000 unit PO DAILY 01/19/16 03/25/18 Clopidogrel [Plavix] 75 mg PO DAILY 01/19/16 03/25/18 Colchicine [Colcrys] 0.6 mg PO DAILY 01/19/16 03/25/18 Gabapentin [Neurontin] 300 mg PO TID 01/19/16 03/25/18 Sennosides [Senna] 8.6 mg PO DAILY PRN 01/19/16 03/25/18 Tamsulosin HCl [Flomax] 0.4 mg PO DAILY 01/19/16 03/25/18 amLODIPine [Norvasc] 10 mg PO DAILY 07/23/16 03/25/18 HYDROcodone/APAP 10-325MG [[place] 1 tab PO TID PRN 08/22/16 03/25/18 10-325] Atorvastatin [Lipitor] 20 mg PO DAILY 10/21/16 03/25/18 Aspirin EC [Ecotrin Low Dose] 81 mg PO DAILY 05/27/17 03/25/18 Previous Rx's Medication Instructions Recorded Lisinopril [Zestril] 20 mg PO DAILY #30 tab 06/23/17 Allergies Allergy/AdvReac Type Severity Reaction Status Date / Time morphine Allergy Anaphylaxis Verified 06/21/17 12:17 pineapple Allergy Swelling Verified 06/21/17 12:17 Review of Systems ROS Statement: Those systems with pertinent positive or pertinent negative responses have been documented in the HPI. ROS Other: All systems not noted in ROS Statement are negative. Past Medical History Past Medical History: Heart Failure, CVA/TIA, GERD/Reflux, Hypertension, Prostate Disorder, Renal Disease, Sleep Apnea/CPAP/BIPAP Additional Past Medical History / Comment(s): CVA with slight L arm, L leg weakness, TIA, CKD stage III, problem with his "taste buds"- nothing tastes good , gout bilateral feet and wrists, BPH, DJD, BAN- DOES'NT USE CPAP MACHINE History of Any Multi-Drug Resistant Organisms: None Reported Past Surgical History: Orthopedic Surgery Additional Past Surgical History / Comment(s): LT KNEE repair SX, RT WRIST BONE GRAFT, RT EAR SX(PATCH) , EGD, COLONOSOCPY Past Anesthesia/Blood Transfusion Reactions: No Reported Reaction Additional Past Anesthesia/Blood Transfusion Reaction / Comment(s): CLAUSTERPHOBIA Past Psychological History: No Psychological Hx Reported Smoking Status: Current some day smoker Past Alcohol Use History: None Reported Past Drug Use History: None Reported - Past Family History Mother Family Medical History: Hypertension Father Family Medical History: Cancer Additional Family Medical History / Comment(s): LUNG CANCER General Exam Limitations: no limitations General appearance: alert, in no apparent distress Head exam: Present: atraumatic, normocephalic, normal inspection Eye exam: Present: normal appearance, PERRL, EOMI. Absent: scleral icterus, conjunctival injection, periorbital swelling ENT exam: Present: normal exam, mucous membranes moist Neck exam: Present: normal inspection, full ROM. Absent: tenderness, meningismus, lymphadenopathy Respiratory exam: Present: normal lung sounds bilaterally. Absent: respiratory distress, wheezes, rales, rhonchi, stridor Cardiovascular Exam: Present: regular rate, normal rhythm, normal heart sounds. Absent: systolic murmur, diastolic murmur, rubs, gallop, clicks GI/Abdominal exam: Present: soft, normal bowel sounds. Absent: distended, tenderness, guarding, rebound, rigid Extremities exam: Present: normal capillary refill (Capillary refill less than 2 seconds and DP pulses 2+ bilaterally.), other (The patient intact in lower extremities) Back exam: Present: tenderness (Tenderness noted to the left lower back as well as somewhat in the right lower back.). Absent: full ROM (Patient has about 45 flexion of the lumbar spine.), CVA tenderness (R), CVA tenderness (L), vertebral tenderness (No vertebral tenderness noted) Neurological exam: Present: alert, oriented X3, CN II-XII intact, normal gait ( Patient able to ambulate without difficulty) Psychiatric exam: Present: normal affect, normal mood Course Vital Signs 03/25/18 03/26/18 23:31 01:31 Temperature 98.1 F Pulse Rate 56 L 52 L Respiratory 20 18 Rate Blood Pressure 143/92 123/76 O2 Sat by Pulse 99 100 Oximetry EKG Findings - EKG Comments: EKG Findings:: Sinus bradycardia, Ventricular rate 57, WI interval 194, QTC 443 , no evidence of ST elevation or depression. Medical Decision Making - Medical Decision Making 62-year-old male presents to the emergency determine for chief complaint of low back pain times one day. Patient states he went outside when he came back in he had low back pain. He denies any other injuries. On exam patient has some limited range motion of the lumbar spine. No tenderness of the lumbar spine but there is tenderness in the left low back and right low back. Patient states he is worse in the left lower back. No red flag symptoms at this time. No saddle anesthesia or changes in bladder or bowel movements. Patient denies any urinary symptoms. I did recommend blood work and CAT scan this patient is not sure if he injured his back to rule out kidney stone or other worsening pathology. Patient refuses both blood work and CAT scan despite understanding the risks. He states he will stay for the x-ray which was negative for fracture. Patient refused to wait for urine results. I did follow up with these after patient was discharged and it was cultured. Patient was given Toradol and [place] which he takes at home. He states he is feeling much better on reevaluation and is ready to go home. At this time patient will follow up with primary care in 1-2 days. As patient did not allow for blood work or CAT scan I did recommend returning if he has any worsening symptoms which she agrees to do. He will take his home medications for pain. - Lab Data Lab Results 03/26/18 Range/Units 02:25 Urine Color Yellow Urine Appearance Clear (Clear) Urine pH 6.0 (5.0-8.0) Ur Specific [place] 1.010 (1.001-1.035) Urine Protein Negative (Negative) Urine Glucose (UA) Negative (Negative) Urine Ketones Negative (Negative) Urine Blood Negative (Negative) Urine Nitrite Negative (Negative) Urine Bilirubin Negative (Negative) Urine Urobilinogen <2.0 (<2.0) mg/dL Ur Leukocyte Esterase Moderate H (Negative) Urine WBC 37 H (0-5) /hpf Urine Mucus Rare H (None) /hpf Disposition Clinical Impression: Back pain Disposition: HOME SELF-CARE Condition: Good Instructions: Acute Low Back Pain (ED) Additional Instructions: Please take your pain medication at home as directed. Please follow up with primary care in 1-2 days. Return to the emergency department if you have any worsening symptoms or fevers. Is patient prescribed a controlled substance at d/c from ED?: No Referrals: Gunner Meneses MD [Primary Care Provider] - 1-2 days Time of Disposition: 02:22
[2018-03-26] MEDS ORDERED: KETOROLAC 30 MG/ML 1 ML VIAL IM STA (00:53)
[2018-03-26] MEDS ORDERED: HYDROcodone/APAP 5-325MG 1 EACH TAB PO STA (00:53)
[2018-03-26 01:32] VITALS: BP 123/76; PULSE 52; RESP 18
--- NOTE | 2018-03-26 01:39 | XR ---
EXAMINATION TYPE: XR lumbar spine 2 or 3V DATE OF EXAM: 03/26/2018 COMPARISON: NONE HISTORY: Low back pain TECHNIQUE: 3 views FINDINGS: Lumbar vertebra have fairly normal alignment. Posterior elements are intact. There is hyper trophic spurring of the endplates. Sacroiliac joints appear intact. There is no compression fracture. IMPRESSION: Spondylotic changes. No fracture. Multilevel anterior hypertrophic spurring.
[2018-03-26 02:47] LABS: Appearance,Urine Clear (Clear); Bilirubin,Urine Negative (Negative); Blood,Urine Negative (Negative); Color,Urine Yellow; Glucose,Urine (UA) Negative (Negative); Ketones,Urine Negative (Negative); Leukocyte Esterase,Urine Moderate (Negative); Mucus,Urine Rare /hpf; Nitrite,Urine Negative (Negative); Protein,Urine Negative (Negative); Urobilinogen,Urine <2.0 mg/dL (<2.0); WBC,Urine 37 /hpf (0-5)
== END 2018-03-26 02:30 | disposition home or self-care (01) ==
LOC: EC 22:56
DX: M54.5 Low back pain (principal); R07.9 Chest pain, unspecified; R05 Cough; K21.9 Gastro-esophageal reflux disease without esophagitis; I13.0 Hypertensive heart and chronic kidney disease with heart failure and stage 1 through stage 4 chronic kidney disease, or unspecified chronic kidney disease; N18.3 Chronic kidney disease, stage 3 (moderate); N40.0 Benign prostatic hyperplasia without lower urinary tract symptoms; F17.200 Nicotine dependence, unspecified, uncomplicated; Z86.73 Personal history of transient ischemic attack (TIA), and cerebral infarction without residual deficits; Z53.29 Procedure and treatment not carried out because of patient's decision for other reasons; Z79.01 Long term (current) use of anticoagulants; Z79.82 Long term (current) use of aspirin; Z79.899 Other long term (current) drug therapy; Z88.5 Allergy status to narcotic agent; Z91.018 Allergy to other foods
CPT/HCPCS: 99284; 96372; 93005 ×2; 81001; 87086; 72100; J1885

== ENCOUNTER 2018-09-29 20:04 | Emergency (ER) | payer OTHER ==
[2018-09-29 20:09] VITALS: RESP 18; TEMP 99.8
[2018-09-29] MEDS ORDERED: IPRATROPIUM-ALBUTEROL 3 ML NEB INHALATION STA (20:27)
[2018-09-29] MEDS ORDERED: guaiFENesin-DM 600/30MG 1 EACH TAB.ER.12H PO STA (20:27)
[2018-09-29] MEDS ORDERED: ACETAMINOPHEN TAB 500 MG TAB PO STA (20:28)
[2018-09-29] MEDS ORDERED: predniSONE 50 MG TAB PO STA (20:30)
--- NOTE | 2018-09-29 20:30 | ED ---
URI HPI - General Chief Complaint: Upper Respiratory Infection Stated Complaint: possible flu Time Seen by Provider: 09/29/18 20:15 Source: patient, family Mode of arrival: ambulatory Limitations: no limitations - History of Present Illness Initial Comments: 63-year-old male patient presents to the emergency department today for evaluation of cough, nasal congestion and fever. Patient states symptoms of an present since Friday. States that he is coughing up a small amount of clear sputum. Denies any hemoptysis. States he is having clear nasal drainage. Denies sore throat or ear pain. States he coughs he does have pain to his chest. Denies any pain at rest. Denies any shortness of breath, nausea, or sweats. Patient denies any recent rash, abdominal pain, diarrhea, constipation, back pain, numbness, tingling, dizziness, weakness, hematuria, dysuria, urinary urgency, urinary frequency, headache, visual changes, or any other complaints. - Related Data Home Medications Medication Instructions Recorded Confirmed Cholecalciferol [Vitamin D3] 2,000 unit PO DAILY 01/19/16 09/29/18 Clopidogrel [Plavix] 75 mg PO DAILY 01/19/16 09/29/18 Colchicine [Colcrys] 0.6 mg PO DAILY 01/19/16 09/29/18 Sennosides [Senna] 8.6 mg PO DAILY PRN 01/19/16 09/29/18 Tamsulosin HCl [Flomax] 0.4 mg PO DAILY 01/19/16 09/29/18 amLODIPine [Norvasc] 10 mg PO DAILY 07/23/16 09/29/18 HYDROcodone/APAP 10-325MG [[place] 1 tab PO TID PRN 08/22/16 09/29/18 10-325] Atorvastatin [Lipitor] 20 mg PO DAILY 10/21/16 09/29/18 Aspirin EC [Ecotrin Low Dose] 81 mg PO DAILY 05/27/17 09/29/18 Carvedilol [Coreg] 25 mg PO BID 09/29/18 09/29/18 Previous Rx's Medication Instructions Recorded Lisinopril [Zestril] 20 mg PO DAILY #30 tab 06/23/17 Albuterol Sulfate [Proair Hfa] 1 - 2 puff INHALATION Q6HR PRN #1 09/29/18 inhaler Oseltamivir [Tamiflu] 75 mg PO Q12HR #10 cap 09/29/18 guaiFENesin-DM 600/30MG [Mucinex 1 each PO Q12HR #10 tab.er.12h 09/29/18 Dm] Allergies Allergy/AdvReac Type Severity Reaction Status Date / Time morphine Allergy Anaphylaxis Verified 09/29/18 20:34 pineapple Allergy Swelling Verified 09/29/18 20:34 Review of Systems ROS Statement: Those systems with pertinent positive or pertinent negative responses have been documented in the HPI. ROS Other: All systems not noted in ROS Statement are negative. Past Medical History Past Medical History: Heart Failure, CVA/TIA, GERD/Reflux, Hypertension, Prostate Disorder, Renal Disease, Sleep Apnea/CPAP/BIPAP Additional Past Medical History / Comment(s): CVA with slight L arm, L leg weakness, TIA, CKD stage III, problem with his "taste buds"- nothing tastes good, gout bilateral feet and wrists, BPH, DJD, BAN- DOES'NT USE CPAP MACHINE History of Any Multi-Drug Resistant Organisms: None Reported Past Surgical History: Orthopedic Surgery Additional Past Surgical History / Comment(s): LT KNEE repair SX, RT WRIST BONE GRAFT, RT EAR SX(PATCH) , EGD, COLONOSOCPY Past Anesthesia/Blood Transfusion Reactions: No Reported Reaction Additional Past Anesthesia/Blood Transfusion Reaction / Comment(s): CLAUSTERPHOBIA Past Psychological History: No Psychological Hx Reported Smoking Status: Current some day smoker Past Alcohol Use History: None Reported Past Drug Use History: None Reported - Past Family History Mother Family Medical History: Hypertension Father Family Medical History: Cancer Additional Family Medical History / Comment(s): LUNG CANCER General Exam Limitations: no limitations General appearance: alert, in no apparent distress, other (Social well- developed, well-nourished adult male patient in no acute distress. Vital signs upon presentation are temperature 99.8F, pulse 88, respirations 18, blood pressure 170/103, pulse ox 94% on room air.) Eye exam: Present: normal appearance, PERRL, EOMI. Absent: scleral icterus, conjunctival injection, periorbital swelling ENT exam: Present: normal exam, normal oropharynx, mucous membranes moist Respiratory exam: Present: wheezes (Neck surgery wheezing in the posterior lung huitron). Absent: normal lung sounds bilaterally, respiratory distress, rales, rhonchi, stridor Cardiovascular Exam: Present: regular rate, normal rhythm, normal heart sounds. Absent: systolic murmur, diastolic murmur, rubs, gallop, clicks GI/Abdominal exam: Present: soft, normal bowel sounds. Absent: distended, tenderness, guarding, rebound, rigid Neurological exam: Present: alert, oriented X3, CN II-XII intact Psychiatric exam: Present: normal affect, normal mood Skin exam: Present: warm, dry, intact, normal color. Absent: rash Course Vital Signs 09/29/18 09/29/18 09/29/18 20:05 20:43 20:49 Temperature 99.8 F H Pulse Rate 88 88 90 Respiratory 18 Rate Blood Pressure 170/103 O2 Sat by Pulse 94 L Oximetry 09/29/18 22:46 Temperature Pulse Rate 92 Respiratory 18 Rate Blood Pressure 164/88 O2 Sat by Pulse 96 Oximetry Medical Decision Making - Medical Decision Making 63-year-old male patient presents to the emergency department today for evaluation of cough, nasal congestion, and fever. Physical examination revealed clear equal lung sounds. No adenopathy noted. Chest x-ray showed no acute cardiopulmonary process. Patient was positive for influenza. Patient was given breathing treatment and Mucinex. Upon reevaluation patient does report improvement of symptoms. He'll be discharged home with a prescription for Mucinex, Tamiflu, and Pro Air inhaler. He is instructed to continue Tylenol Motrin for fever control. Return parameters were discussed in detail. He verbalizes understanding and agrees with this plan. - Lab Data Lab Results 09/29/18 Range/Units 20:30 Influenza Type A RNA Detected H (Not Detectd) Influenza Type B (PCR) Not Detected (Not Detectd) - EKG Data -: EKG Interpreted by Fl EKG Comments: EKG obtained at 2041 shows normal sinus rhythm with a ventricular rate is 69, AK interval 192, QRS duration 98, QT 424, QTC 454. No evidence of ST elevation or depression. - Radiology Data Radiology results: report reviewed, image reviewed Two-view x-ray of the chest is obtained. Report was reviewed in its entirety. Impression by Dr. David Junior shows no acute process. Prominent aortic ectasia redemonstrated. Disposition Clinical Impression: Influenza A Disposition: HOME SELF-CARE Condition: Good Instructions (If sedation given, give patient instructions): Influenza (ED) Additional Instructions: Take medications as directed. Follow-up through primary care physician for recheck in 1-2 days. Return to the emergency department immediately for any new, worsening, or concerning symptoms. Prescriptions: guaiFENesin-DM 600/30MG [Mucinex Dm] 1 each PO Q12HR #10 tab.er.12h Albuterol Sulfate [Proair Hfa] 1 - 2 puff INHALATION Q6HR PRN #1 inhaler PRN Reason: Shortness Of Breath Oseltamivir [Tamiflu] 75 mg PO Q12HR #10 cap Is patient prescribed a controlled substance at d/c from ED?: No Referrals: Gunner Meneses MD [Primary Care Provider] - 1-2 days Time of Disposition: 22:38
--- NOTE | 2018-09-29 21:25 | XR ---
EXAMINATION: XR chest 2V DATE AND TIME: 09/29/2018 8:59 PM CLINICAL INDICATION: Pain; Cough and chills for 3 days. TECHNIQUE: Frontal and lateral radiographs COMPARISON: Chest radiograph 06/21/2017 FINDINGS: The lungs are clear. The pleural spaces are negative. The prominent aortic ectasia is redemonstrated. Cardiac silhouette is not enlarged. The skeletal structures and soft tissues are negative for acute findings. IMPRESSION: 1. NO ACUTE PROCESS. 2. Prominent aortic ectasia redemonstrated.
[2018-09-29 22:47] VITALS: BP 164/88; PULSE 92
== END 2018-09-29 22:45 | disposition home or self-care (01) ==
LOC: EC 20:04
DX: J10.1 Influenza due to other identified influenza virus with other respiratory manifestations (principal); I77.819 Aortic ectasia, unspecified site; I13.0 Hypertensive heart and chronic kidney disease with heart failure and stage 1 through stage 4 chronic kidney disease, or unspecified chronic kidney disease; I50.9 Heart failure, unspecified; N18.3 Chronic kidney disease, stage 3 (moderate); M10.9 Gout, unspecified; N40.0 Benign prostatic hyperplasia without lower urinary tract symptoms; F17.200 Nicotine dependence, unspecified, uncomplicated; Z88.5 Allergy status to narcotic agent; Z91.018 Allergy to other foods; Z79.02 Long term (current) use of antithrombotics/antiplatelets; Z79.82 Long term (current) use of aspirin; Z79.899 Other long term (current) drug therapy; Z86.73 Personal history of transient ischemic attack (TIA), and cerebral infarction without residual deficits; Z87.39 Personal history of other diseases of the musculoskeletal system and connective tissue; Z80.1 Family history of malignant neoplasm of trachea, bronchus and lung; Z82.49 Family history of ischemic heart disease and other diseases of the circulatory system
CPT/HCPCS: 94640; 93005; 87502; 71046; 99284; J7512

== ENCOUNTER 2018-11-29 12:43 | Observation (INO) | payer OTHER ==
[2018-11-29] MEDS ORDERED: SODIUM CHLORIDE 0.9% 1,000 ML IV ONE (13:03)
--- NOTE | 2018-11-29 13:09 | ED ---
General Adult HPI - General Chief complaint: Neuro Symptoms/Deficit Stated complaint: Stroke symptoms Time Seen by Provider: 11/29/18 12:56 Source: patient, family, RN notes reviewed, old records reviewed Mode of arrival: wheelchair - History of Present Illness Initial comments: 63-year-old male history of previous CVA presenting for evaluation of fall, vomiting, and concern for slurred speech. Patient had fallen yesterday evening and was found by his , he was confused and unresponsive. He does admit to smoking marijuana just prior to the onset of these symptoms. He became more alert and declined medical treatment at that time. He woke this morning and was encouraged by his to present to the emergency department however he declined, he went to [facility] and it was felt that he was slumped to the left more than he usually is. He has previous history of CVA and is reported to be on Coumadin by his . He has residual left-sided facial droop and left arm weakness. Left arm weakness is unchanged according to his was at bedside. His slurring of speech is also seem to improve since the time of onset. He has no complaints from the fall yesterday evening. He has no headache. - Related Data Home Medications Medication Instructions Recorded Confirmed Colchicine [Colcrys] 0.6 mg PO DAILY 01/19/16 11/29/18 Tamsulosin HCl [Flomax] 0.4 mg PO DAILY 01/19/16 11/29/18 amLODIPine [Norvasc] 10 mg PO DAILY 07/23/16 11/29/18 Atorvastatin [Lipitor] 20 mg PO DAILY 10/21/16 11/29/18 Aspirin EC [Ecotrin Low Dose] 81 mg PO DAILY 05/27/17 11/29/18 Carvedilol [Coreg] 25 mg PO BID 09/29/18 11/29/18 Albuterol Sulfate [Proair Hfa] 1 - 2 puff INHALATION RT-Q6H PRN 11/29/18 11/29/18 Allopurinol [Zyloprim] 100 mg PO DAILY 11/29/18 11/29/18 Lisinopril [Prinivil] 10 mg PO DAILY 11/29/18 11/29/18 Losartan Potassium 100 mg PO DAILY 11/29/18 11/29/18 Omeprazole [PriLOSEC] 20 mg PO DAILY 11/29/18 11/29/18 Allergies Allergy/AdvReac Type Severity Reaction Status Date / Time morphine Allergy Anaphylaxis Verified 11/29/18 14:34 pineapple Allergy Swelling Verified 11/29/18 14:34 Review of Systems ROS Statement: Those systems with pertinent positive or pertinent negative responses have been documented in the HPI. ROS Other: All systems not noted in ROS Statement are negative. Past Medical History Past Medical History: Heart Failure, CVA/TIA, GERD/Reflux, Hypertension, Prostate Disorder, Renal Disease, Sleep Apnea/CPAP/BIPAP Additional Past Medical History / Comment(s): CVA with slight L arm, L leg weakness, TIA, CKD stage III, problem with his "taste buds"- nothing tastes good, gout bilateral feet and wrists, BPH, DJD, BAN- DOES'NT USE CPAP MACHINE History of Any Multi-Drug Resistant Organisms: None Reported Past Surgical History: Orthopedic Surgery Additional Past Surgical History / Comment(s): LT KNEE repair SX, RT WRIST BONE GRAFT, RT EAR SX(PATCH) , EGD, COLONOSOCPY Past Anesthesia/Blood Transfusion Reactions: No Reported Reaction Additional Past Anesthesia/Blood Transfusion Reaction / Comment(s): CLAUSTERPHOBIA Past Psychological History: No Psychological Hx Reported Smoking Status: Current some day smoker Past Alcohol Use History: None Reported Past Drug Use History: None Reported - Past Family History Mother Family Medical History: Hypertension Father Family Medical History: Cancer Additional Family Medical History / Comment(s): LUNG CANCER General Exam General appearance: alert, in no apparent distress Head exam: Present: atraumatic, normocephalic Eye exam: Present: normal appearance, PERRL ENT exam: Present: normal exam Neck exam: Present: normal inspection. Absent: tenderness, meningismus Respiratory exam: Present: normal lung sounds bilaterally. Absent: respiratory distress, wheezes Cardiovascular Exam: Present: regular rate, bradycardia GI/Abdominal exam: Present: soft. Absent: distended, tenderness, guarding Extremities exam: Present: normal capillary refill, pedal edema Back exam: Present: normal inspection. 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 Absent: CN II-XII intact (Minimal left facial droop, chronic) Psychiatric exam: Present: normal affect, normal mood Skin exam: Present: warm, dry, intact. Absent: cyanosis, diaphoretic Course Vital Signs 11/29/18 11/29/18 12:48 14:53 Temperature 97.5 F L Pulse Rate 53 L 57 L Respiratory 18 16 Rate Blood Pressure 114/78 132/87 O2 Sat by Pulse 96 96 Oximetry - Reevaluation(s) Reevaluation #1: 11/29/18 15:33 Patient reevaluated, resting comfortably, normal speech, he does have persistent weakness in the left arm unchanged from baseline. EKG Findings - EKG Comments: EKG Findings:: EKG: Sinus bradycardia, rate of 50, [place] interval 208, QRS duration 106, QTC 4:30, no ST segment elevation. Medical Decision Making - Medical Decision Making Patient has had CT showing multiple lacunar infarcts, no acute intracranial hemorrhage or acute infarction. Chest x-ray negative. CBC showing normal platelets of 91. Creatinine mildly elevated 1.55. Urinalysis pending. Patient reevaluated, he is at his baseline neuro exam with no new deficits, he has normal speech. is at bedside. Will be admitted for further evaluation of TIA. Case discussed with Dr. Meneses. - Lab Data Result diagrams: 11/29/18 13:24 11/29/18 13:24 Lab Results 11/29/18 11/29/18 11/29/18 Range/Units 13:24 13:24 13:24 WBC 7.3 (3.8-10.6) k/uL RBC 5.19 (4.30-5.90) m/uL Hgb 14.5 (13.0-17.5) gm/dL Hct 43.6 (39.0-53.0) % MCV 83.9 (80.0-100.0) fL MCH 27.9 (25.0-35.0) pg MCHC 33.3 (31.0-37.0) g/dL RDW 16.6 H (11.5-15.5) % Plt Count 91 L (150-450) k/uL Neutrophils % 41 % Lymphocytes % 38 % Monocytes % 6 % Eosinophils % 10 % Basophils % 1 % Neutrophils # 3.0 (1.3-7.7) k/uL Lymphocytes # 2.8 (1.0-4.8) k/uL Monocytes # 0.5 (0-1.0) k/uL Eosinophils # 0.7 (0-0.7) k/uL Basophils # 0.1 (0-0.2) k/uL Manual Slide Review Performed Anisocytosis Slight PT 10.8 (9.0-12.0) sec INR 1.0 (<1.2) APTT 24.6 (22.0-30.0) sec Sodium 141 (137-145) mmol/L Potassium 4.3 (3.5-5.1) mmol/L Chloride 108 H (98-107) mmol/L Carbon Dioxide 27 (22-30) mmol/L Anion Gap 6 mmol/L BUN 18 (9-20) mg/dL Creatinine 1.55 H (0.66-1.25) mg/dL Est GFR (CKD-EPI)AfAm 55 (>60 ml/min/1.73 sqM) Est GFR (CKD-EPI)NonAf 48 (>60 ml/min/1.73 sqM) Glucose 92 (74-99) mg/dL POC Glucose (mg/dL) (75-99) mg/dL POC Glu Technology Advisor ID Calcium 9.3 (8.4-10.2) mg/dL Total Bilirubin 0.6 (0.2-1.3) mg/dL AST 54 (17-59) U/L ALT 51 (21-72) U/L Alkaline Phosphatase 97 (38-126) U/L Troponin I (0.000-0.034) ng/mL Total Protein 7.1 (6.3-8.2) g/dL Albumin 3.4 L (3.5-5.0) g/dL 11/29/18 11/29/18 Range/Units 13:24 13:27 WBC (3.8-10.6) k/uL RBC (4.30-5.90) m/uL Hgb (13.0-17.5) gm/dL Hct (39.0-53.0) % MCV (80.0-100.0) fL MCH (25.0-35.0) pg MCHC (31.0-37.0) g/dL RDW (11.5-15.5) % Plt Count (150-450) k/uL Neutrophils % % Lymphocytes % % Monocytes % % Eosinophils % % Basophils % % Neutrophils # (1.3-7.7) k/uL Lymphocytes # (1.0-4.8) k/uL Monocytes # (0-1.0) k/uL Eosinophils # (0-0.7) k/uL Basophils # (0-0.2) k/uL Manual Slide Review Anisocytosis PT (9.0-12.0) sec INR (<1.2) APTT (22.0-30.0) sec Sodium (137-145) mmol/L Potassium (3.5-5.1) mmol/L Chloride (98-107) mmol/L Carbon Dioxide (22-30) mmol/L Anion Gap mmol/L BUN (9-20) mg/dL Creatinine (0.66-1.25) mg/dL Est GFR (CKD-EPI)AfAm (>60 ml/min/1.73 sqM) Est GFR (CKD-EPI)NonAf (>60 ml/min/1.73 sqM) Glucose (74-99) mg/dL POC Glucose (mg/dL) 92 (75-99) mg/dL POC Glu Technology Advisor ID Rita De Oliveira Calcium (8.4-10.2) mg/dL Total Bilirubin (0.2-1.3) mg/dL AST (17-59) U/L ALT (21-72) U/L Alkaline Phosphatase (38-126) U/L Troponin I <0.012 (0.000-0.034) ng/mL Total Protein (6.3-8.2) g/dL Albumin (3.5-5.0) g/dL Disposition Clinical Impression: TIA (transient ischemic attack), Lacunar infarction Disposition: ADMITTED IP TO THIS [facility] Condition: Stable Is patient prescribed a controlled substance at d/c from ED?: No Referrals: Gunner Meneses MD [Primary Care Provider] - 1-2 days Decision to Admit Reason: Admit from EC Decision Date: 11/29/18 Decision Time: 15:35
[2018-11-29 13:29] LABS: Glucose,Whole Blood 92 mg/dL (75-99)
[2018-11-29 13:41] LABS: Anisocytosis Slight; Basophils # (A) 0.1 k/uL (0-0.2); Basophils % (A) 1 %; Eosinophils # (A) 0.7 k/uL (0-0.7); Eosinophils % (A) 10 %; HCT 43.6 % (39.0-53.0); HGB 14.5 gm/dL (13.0-17.5); Lymphocytes # (A) 2.8 k/uL (1.0-4.8); Lymphocytes % (A) 38 %; MCH 27.9 pg (25.0-35.0); MCHC 33.3 g/dL (31.0-37.0); MCV 83.9 fL (80.0-100.0); Mean Platelet Volume 9.8; Monocytes # (A) 0.5 k/uL (0-1.0); Monocytes % (A) 6 %; Neutrophils % (A) 41 %; RBC 5.19 m/uL (4.30-5.90); RDW 16.6 % (11.5-15.5); WBC 7.3 k/uL (3.8-10.6)
[2018-11-29 13:49] LABS: Albumin 3.4 g/dL (3.5-5.0); Calcium 9.3 mg/dL (8.4-10.2); Potassium 4.3 mmol/L (3.5-5.1); Total Bilirubin 0.6 mg/dL (0.2-1.3); Total Protein 7.1 g/dL (6.3-8.2)
[2018-11-29 13:57] LABS: Partial Thromboplastin Time 24.6 sec (22.0-30.0); Prothrombin Time 10.8 sec (9.0-12.0)
--- NOTE | 2018-11-29 14:04 | CT ---
EXAMINATION TYPE: CT brain wo con DATE OF EXAM: 11/29/2018 COMPARISON: Previous study dated 06/21/2017 HISTORY: Altered mental status CT DLP: 1099.4 mGycm Automated exposure control for dose reduction was used. FINDINGS: Is evidence of an olecranon or infarct in the arana radiata on the right. There is evidence of an ol d lacunar infarct in the posterior limb of the internal capsule on the right. There is evidence of a previous [place] in the external capsule on the right. These were present previously. Central structures are midline. There is no evidence of hydrocephalus. No acute focal lesion, mass ef fect or midline shift is seen. I do not see evidence of intracranial blood. There is chronic mucoperiosteal thickening involving the maxillary and ethmoidal air cells. The masto ids are clear. The bony calvarium is intact. IMPRESSION: 1. MULTIPLE PREVIOUS LACUNAR INFARCTS. 2. NO ACUTE INTRACRANIAL ABNORMALITY. 3. CHRONIC SINUS MUCOSAL DISEASE.
--- NOTE | 2018-11-29 14:05 | XR ---
EXAMINATION TYPE: XR chest 1V portable DATE OF EXAM: 11/29/2018 HISTORY: altered mental status. REFERENCE: Previous study dated 09/29/2018. FINDINGS: The lungs are clear. Pleural spaces are clear. Heart size is within normal limits. There is unfolding and ectasia of the thoracic aorta. IMPRESSION: NO ACUTE INTRATHORACIC ABNORMALITY.
[2018-11-29 14:16] LABS: Platelet Count 91 k/uL (150-450)
[2018-11-29] MEDS ORDERED: NALOXONE 0.4 MG/ML 1 ML VIAL IV PRN (15:32)
[2018-11-29] MEDS ORDERED: ACETAMINOPHEN TAB 325 MG TAB PO PRN (15:32)
[2018-11-29] MEDS ORDERED: ASPIRIN 325 MG TAB PO STA (15:40)
[2018-11-29] MEDS ORDERED: SODIUM CHLORIDE 0.9% 1,000 ML IV SCH (15:45)
[2018-11-29] MEDS: CARVEDILOL 12.5 MG TAB PO SCH (17:05)
[2018-11-29] MEDS ORDERED: HYDROcodone/APAP 10-325MG 1 EACH TAB PO ONE (17:42)
[2018-11-29 18:26] VITALS: BMI 26.2
[2018-11-29 18:43] LABS: Appearance,Urine Clear (Clear); Bilirubin,Urine Negative (Negative); Blood,Urine Negative (Negative); Color,Urine Yellow; Glucose,Urine (UA) Negative (Negative); Ketones,Urine Negative (Negative); Leukocyte Esterase,Urine Negative (Negative); Nitrite,Urine Negative (Negative); PH, Urine 5.5 (5.0-8.0); Protein,Urine Negative (Negative); Urobilinogen,Urine <2.0 mg/dL (<2.0)
[2018-11-29] MEDS ORDERED: ALBUTEROL NEBULIZED 2.5 MG/3 ML INHALATION PRN (18:49)
[2018-11-29 18:52] LABS: Amphetamine Screen,Urine Not Detected (NotDetected); Barbiturate Screen,Urine Not Detected (NotDetected); Benzodiazepines Screen,Urine Not Detected (NotDetected); Cocaine Screen,Urine Not Detected (NotDetected); Methadone Screen, Urine Not Detected (NotDetected); Opiate Screen,Urine Not Detected (NotDetected); Oxycodone Screen, Urine Not Detected (NotDetected); Phencyclidine Screen,Urine Not Detected (NotDetected); Tricyclic Antidepressant,Urine Not Detected (NotDetected); Urn Cannabinoid Scrn Detected (NotDetected)
[2018-11-29] MEDS: HYDROcodone/APAP 10-325MG 1 EACH TAB PO PRN (23:02)
[2018-11-30] MEDS: CARVEDILOL 12.5 MG TAB PO SCH (06:30)
[2018-11-30] MEDS ORDERED: PANTOPRAZOLE 40 MG TABLET PO SCH (07:30)
[2018-11-30 07:44] LABS: Anisocytosis Slight; HCT 39.5 % (39.0-53.0); HGB 13.1 gm/dL (13.0-17.5); MCH 27.9 pg (25.0-35.0); MCV 84.4 fL (80.0-100.0); Mean Platelet Volume 10.1; RBC 4.68 m/uL (4.30-5.90); RDW 16.7 % (11.5-15.5); WBC 6.5 k/uL (3.8-10.6)
[2018-11-30 07:46] LABS: Platelet Count 89 k/uL (150-450)
[2018-11-30 07:48] LABS: Calcium 8.7 mg/dL (8.4-10.2)
[2018-11-30 08:13] LABS: Eosinophils # (M) 0.59 k/uL (0-0.7); Lymphocytes # (M) 3.51 k/uL (1.0-4.8); Monocytes # (M) 0.46 k/uL (0-1.0); Neutrophils % (M) 31 %; Nucleated Red Blood Cells 0 /100 WBC (0-0); Total Cells Counted 200
[2018-11-30] MEDS: HYDROcodone/APAP 10-325MG 1 EACH TAB PO PRN (08:31)
[2018-11-30 08:38] VITALS: RESP 16; TEMP 96.4
[2018-11-30] MEDS ORDERED: TAMSULOSIN 0.4 MG CAP.ER.24H PO SCH (09:00)
[2018-11-30] MEDS ORDERED: amLODIPine 10 MG TAB PO SCH (09:00)
[2018-11-30] MEDS ORDERED: LOSARTAN 50 MG TAB PO SCH (09:00)
[2018-11-30] MEDS ORDERED: ASPIRIN 81 MG PO SCH (09:00)
[2018-11-30] MEDS ORDERED: ATORVASTATIN 20 MG TAB PO SCH (09:00)
[2018-11-30] MEDS ORDERED: ALLOPURINOL 100 MG TAB PO SCH (09:00)
[2018-11-30] MEDS ORDERED: LISINOPRIL 10 MG TAB PO SCH (09:00)
[2018-11-30] MEDS ORDERED: COLCHICINE 0.6 MG EACH PO SCH (09:00)
[2018-11-30] MEDS ORDERED: ASPIRIN 325 MG TAB PO SCH (09:00)
[2018-11-30 10:10] LABS: Albumin 2.9 g/dL (3.5-5.0); Total Bilirubin 0.4 mg/dL (0.2-1.3); Total Protein 6.1 g/dL (6.3-8.2)
--- NOTE | 2018-11-30 12:06 | P.HPIM ---
History of Present Illness H&P Date: 11/30/18 This is a 63-year-old male patient presented with complaints of slurred speech and fall. Patient is not able to recall the exact events of yesterday but does recall that his wanted him to come to the hospital but patient declined and went to [facility]. Patient states that he was then brought to hospital after [facility] per his 's request. Per ER report patient admitted to smoking marijuana prior to onset of symptoms. Patient has a history of previous CVA with left-sided weakness. Additional medical history includes heart failure, CVA, GERD, hypertension, prostate disorder, renal disease, sleep apnea, nicotine dependence and marijuana use. Head CT completed showing multiple previous l acunar infarcts. No acute intracranial abnormality. Chronic sinus mucosal disease. Chest x-ray completed showing no acute intrathoracic abnormality. EKG completed showing sinus bradycardia. Carotid Doppler and 2-D echo has been ordered. Neurology services have been consulted. At this time patient is resting comfortably in bed. Patient does have left upper sternal any weakness which she reports is chronic since his stroke. Patient does have clear speech. Patient is alert and oriented 3. No facial droop noted. Patient denies any chest pain or shortness breath. Patient denies any urinary burning or frequency Review of Systems Please refer to HPI otherwise unremarkable Past Medical History Past Medical History: Heart Failure, CVA/TIA, GERD/Reflux, Hypertension, Prostate Disorder, Renal Disease, Sleep Apnea/CPAP/BIPAP Additional Past Medical History / Comment(s): CVA with slight L arm, L leg weakness, TIA, CKD stage III, problem with his "taste buds"- nothing tastes good, gout bilateral feet and wrists, BPH, DJD, BAN- DOES'NT USE CPAP MACHINE History of Any Multi-Drug Resistant Organisms: None Reported Past Surgical History: Orthopedic Surgery Additional Past Surgical History / Comment(s): LT KNEE repair SX, RT WRIST BONE GRAFT, RT EAR SX(PATCH) , EGD, COLONOSOCPY Past Anesthesia/Blood Transfusion Reactions: No Reported Reaction Additional Past Anesthesia/Blood Transfusion Reaction / Comment(s): CLAUSTERPHOBIA Past Psychological History: No Psychological Hx Reported Additional Psychological History / Comment(s): Pt resides with significant other. He uses a cane prn. He drives. Smoking Status: Current some day smoker Past Alcohol Use History: None Reported Additional Past Alcohol Use History / Comment(s): Only smokes 3 cigarettes a day. Past Drug Use History: Marijuana Additional Drug Use History / Comment(s): Patient smoked weed a couple days ago. First time in 30 years. - Past Family History Mother Family Medical History: Hypertension Father Family Medical History: Cancer Additional Family Medical History / Comment(s): LUNG CANCER Medications and Allergies Home Medications Medication Instructions Recorded Confirmed Type Colchicine [Colcrys] 0.6 mg PO DAILY 01/19/16 11/29/18 History Tamsulosin HCl [Flomax] 0.4 mg PO DAILY 01/19/16 11/29/18 History amLODIPine [Norvasc] 10 mg PO DAILY 07/23/16 11/29/18 History Atorvastatin [Lipitor] 20 mg PO DAILY 10/21/16 11/29/18 History Aspirin EC [Ecotrin Low Dose] 81 mg PO DAILY 05/27/17 11/29/18 History Carvedilol [Coreg] 25 mg PO BID 09/29/18 11/29/18 History Albuterol Sulfate [Proair Hfa] 1 - 2 puff INHALATION RT-Q6H PRN 11/29/18 History Allopurinol [Zyloprim] 100 mg PO DAILY 11/29/18 11/29/18 History Lisinopril [Prinivil] 10 mg PO DAILY 11/29/18 11/29/18 History Losartan Potassium 100 mg PO DAILY 11/29/18 11/29/18 History Omeprazole [PriLOSEC] 20 mg PO DAILY 11/29/18 11/29/18 History Allergies Allergy/AdvReac Type Severity Reaction Status Date / Time morphine Allergy Anaphylaxis Verified 11/29/18 14:34 pineapple Allergy Swelling Verified 11/29/18 14:34 Physical Exam Vitals: Vital Signs Temp Pulse Pulse Resp BP BP Pulse Ox 11/30/18 11:22 16 11/30/18 08:00 96.4 F L 51 L 16 119/70 96 11/30/18 04:00 98 F 59 L 19 103/71 11/29/18 23:27 59 L 19 11/29/18 23:25 59 L 19 104/65 95 11/29/18 20:00 97.5 F L 55 L 20 128/77 97 11/29/18 17:13 98 F 61 16 114/87 95 11/29/18 17:00 62 16 122/85 96 11/29/18 16:35 97.6 F 53 L 20 124/69 98 11/29/18 16:30 54 L 18 122/83 92 L 11/29/18 14:53 57 L 16 132/87 96 11/29/18 12:48 97.5 F L 53 L 18 114/78 96 Intake and Output 11/29/18 11/30/18 11/30/18 22:59 06:59 14:59 Intake Total 1000 240 Output Total 550 Balance 450 240 Intake: Oral 1000 240 Output: Urine 550 Other: Voiding Method Toilet Toilet Toilet # Voids 1 1 Weight 82.4 kg 81.8 kg Head normocephalic Neck supple Lungs clear to auscultation bilaterally no wheezing or crackles Heart regular rate and rhythm S1-S2, no rub or gallop Abdomen is soft nontender nondistended positive bowel sounds no hepatosplenomegaly Extremities no edema. Left arm flaccid. Lower extremities equal strength Neuro alert and orientated to 3. No facial droop noted. Speech is clear Results CBC & Chem 7: 11/30/18 06:57 11/30/18 06:57 Labs: Abnormal Lab Results - Last 24 Hours (Table) 11/29/18 11/29/18 11/29/18 Range/Units 13:24 13:24 13:31 RDW 16.6 H (11.5-15.5) % Plt Count 91 L (150-450) k/uL Chloride 108 H (98-107) mmol/L Creatinine 1.55 H (0.66-1.25) mg/dL Total Protein (6.3-8.2) g/dL Albumin 3.4 L (3.5-5.0) g/dL U Marijuana (THC) Screen Detected H (NotDetected) 11/30/18 11/30/18 Range/Units 06:57 06:57 RDW 16.7 H (11.5-15.5) % Plt Count 89 L (150-450) k/uL Chloride 108 H (98-107) mmol/L Creatinine 1.58 H (0.66-1.25) mg/dL Total Protein 6.1 L (6.3-8.2) g/dL Albumin 2.9 L (3.5-5.0) g/dL U Marijuana (THC) Screen (NotDetected) Thrombosis Risk Factor Assmnt - Choose All That Apply Each Risk Factor Represents 2 Points: Age 61-74 years Other congenital or acquired thrombophilia - If yes, enter type in comment: No Thrombosis Risk Factor Assessment Total Risk Factor Score: 2 Thrombosis Risk Factor Assessment Level: Low Risk Assessment and Plan Assessment: 1. Slurred speech likely related to transient ischemic attack. Head CT completed showing multiple previous lacunar infarcts. No acute intracranial abnormality. Chronic sinus mucosal disease. 2-D echo and carotid Dopplers on has been ordered. MRI of the brain has been ordered per neurology 2. History of previous CVA with left-sided weakness 4. Thrombocytopenia. Platelets low at 89. This does appear new for patient. Hematology services have been consulted 5. Chronic kidney disease stage 3. Creatinine 1.58. This does appear improved from baseline 6. History of Obstructive sleep apnea 7. History of GERD 8. History of BPH 9. History of essential hypertension 10. Nicotine dependence. Patient educated greater than 3 minutes and patient. Patient declines nicotine patch 11. Marijuana use 12. Bradycardia. Heart rate in the 50s. Patient asymptomatic. Will continue to monitor DVT prophylaxis SCDs due to thrombocytopenia. GI prophylaxis Protonix Time with Patient: Greater than 30 (I performed an examination of the patient and discussed their management with the Nurse Practitioner. I have reviewed the Nurse Practitioner's notes and agree with the documented findings and plan of care. Greater than 60% of the total time spent in counseling and coordination of care)
--- NOTE | 2018-11-30 12:21 | ECHOF ---
Referral Reason:TIA MEASUREMENTS -------- HEIGHT: 175.3 cm WEIGHT: 81.6 kg BP: 103/71 RVIDd: 2.6 cm (< 3.3) IVSd: 1.2 cm (0.6 - 1.1) LVIDd: 4.7 cm (3.9 - 5.3) LVPWd: 1.2 cm (0.6 - 1.1) IVSs: 2.2 cm LVIDs: 2.6 cm LVPWs: 2.0 cm LAESV Index (A-L): 21.53 ml/m Ao Diam: 3.2 cm (2.0 - 3.7) AV Cusp: 1.7 cm (1.5 - 2.6) LA Diam: 2.4 cm (2.7 - 3.8) MV EXCURSION: 17.354 mm (> 18.000) MV EF SLOPE: 118 mm/s (70 - 150) EPSS: 0.6 cm MV E Otto: 0.86 m/s MV DecT: 205 ms MV A Otto: 0.70 m/s MV E/A Ratio: 1.23 AR PHT: 612 ms RAP: 5.00 mmHg RVSP: 26.58 mmHg FINDINGS -------- Sinus rhythm. This was a technically good study. The left ventricular size is normal. There is mild concentric left ventricular hypertrophy. Overa ll left ventricular systolic function is normal with, an EF between 55 - 60 %. Normal LAP Grade 1 D iastolic Dysfunction. The right ventricle is normal in size. The left atrial size is normal. Normal LA size by volume 22+/-6 ml/m2. The right atrial size is normal. Interatrial and interventricular septum intact. Aortic valve is trileaflet and is mildly thickened. There is mild aortic regurgitation. The mitral valve is normal. The mitral valve leaflets are mildly thickened. Mild mitral regurgita tion is present. Mild tricuspid regurgitation present. Right ventricular systolic pressure is normal at < 35 mmHg. There is no pulmonic regurgitation present. The aortic root size is normal. IVC Not well visulized. There is no pericardial effusion. CONCLUSIONS -------- 1. Sinus rhythm. 2. This was a technically good study. 3. The left ventricular size is normal. 4. There is mild concentric left ventricular hypertrophy. 5. Overall left ventricular systolic function is normal with, an EF between 55 - 60 %. 6. Normal LAP Grade 1 Diastolic Dysfunction. 7. The right ventricle is normal in size. 8. The left atrial size is normal. 9. Normal LA size by volume 22+/-6 ml/m2. 10. The right atrial size is normal. 11. Interatrial and interventricular septum intact. 12. Aortic valve is trileaflet and is mildly thickened. 13. There is mild aortic regurgitation. 14. The mitral valve is normal. 15. The mitral valve leaflets are mildly thickened. 16. Mild mitral regurgitation is present. 17. Mild tricuspid regurgitation present. 18. Right ventricular systolic pressure is normal at < 35 mmHg. 19. There is no pulmonic regurgitation present. 20. The aortic root size is normal. 21. IVC Not well visulized. 22. There is no pericardial effusion. CONTENT ANALYST: Jonna Bowman RDCS
--- NOTE | 2018-11-30 13:01 | US ---
EXAMINATION TYPE: US carotid duplex BILAT DATE OF EXAM: 11/30/2018 COMPARISON: CLINICAL HISTORY: TIA. TIA x 4 years ago, passed out. HTN controlled with meds. EXAM MEASUREMENTS: RIGHT: Peak Systolic Velocity (PSV) cm/sec ----- Right CCA: 42.6 ----- Right ICA: 51.3 ----- Right ECA: 35.9 ICA/CCA ratio: 1.2 RIGHT: End Diastole cm/sec ----- Right CCA: 12.7 ----- Right ICA: 21.7 ----- Right ECA: 8.5 LEFT: Peak Systolic Velocity (PSV) cm/sec ----- Left CCA: 40.9 ----- Left ICA: 53.3 ----- Left ECA: 31.7 ICA/CCA ratio: 1.3 LEFT: End Diastole cm/sec ----- Left CCA: 12.1 ----- Left ICA: 23.4 ----- Left ECA: 8.2 VERTEBRALS (direction of flow): Right Vertebral: Antegrade Left Vertebral: Antegrade Rhythm: Normal No elevated velocities or significant stenosis. Bilateral wall thickening. Small amount of plaque se en in bilateral bulbs. Low velocities seen bilaterally. Grayscale, color Doppler, spectral Doppler imaging performed of the carotid arteries. IMPRESSION: Waveform analysis shows no significant stenosis of the proximal internal carotid arterie s bilaterally by Doppler criteria, an indirect measurement of carotid stenosis
--- NOTE | 2018-11-30 14:14 | P.CNNES ---
History of Present Illness Consult date: 11/30/18 Requesting physician: Pan Ramos Reason for Consult: TIA Chief complaint: Left-sided weakness History of Present Illness: This is a 63-year-old right-handed male with a history of a stroke and chronic left-sided weakness. Patient reportedly sustained a fall, head episodes of emesis and slurred speech. He was found by his to be less responsive and confused in the setting of marijuana use. He was then found slumped to the left while at [facility]. There was report of him on Coumadin but patient cannot corroborate the above. His history of stroke left him with a chronic left fa cial droop and left upper extremity weakness. Since he was admitted to hospital, he was put on aspirin full-strength and statin therapy. Carotid duplex and echocardiogram were ordered. Patient is anxious to go home. Review of Systems 14-point ROS performed and as per HPI. Neurologically, patient denies decreased level or loss of consciousness, headache, seizure, changes in vision, diplopia, amaurosis, changes in hearing, new facial droop, ptosis, vertigo, hearing loss, tinnitus, dysarthria, dysphagia, aphasia, other focal numbness/weakness not mentioned above, tremors, bowel/bladder incontinence or ataxia. Past Medical History Past Medical History: Heart Failure, CVA/TIA, GERD/Reflux, Hypertension, Prostate Disorder, Renal Disease, Sleep Apnea/CPAP/BIPAP Additional Past Medical History / Comment(s): CVA with slight L arm, L leg weakness, TIA, CKD stage III, problem with his "taste buds"- nothing tastes good, gout bilateral feet and wrists, BPH, DJD, BAN- DOES'NT USE CPAP MACHINE History of Any Multi-Drug Resistant Organisms: None Reported Past Surgical History: Orthopedic Surgery Additional Past Surgical History / Comment(s): LT KNEE repair SX, RT WRIST BONE GRAFT, RT EAR SX(PATCH) , EGD, COLONOSOCPY Past Anesthesia/Blood Transfusion Reactions: No Reported Reaction Additional Past Anesthesia/Blood Transfusion Reaction / Comment(s): CLAUSTERPHOBIA Past Psychological History: No Psychological Hx Reported Additional Psychological History / Comment(s): Pt resides with significant other. He uses a cane prn. He drives. Smoking Status: Current some day smoker Past Alcohol Use History: None Reported Additional Past Alcohol Use History / Comment(s): Only smokes 3 cigarettes a day. Past Drug Use History: Marijuana Additional Drug Use History / Comment(s): Patient smoked weed a couple days ago. First time in 30 years. - Past Family History Mother Family Medical History: Hypertension Father Family Medical History: Cancer Additional Family Medical History / Comment(s): LUNG CANCER Medications and Allergies Home Medications Medication Instructions Recorded Confirmed Type Colchicine [Colcrys] 0.6 mg PO DAILY 01/19/16 11/29/18 History Tamsulosin HCl [Flomax] 0.4 mg PO DAILY 01/19/16 11/29/18 History amLODIPine [Norvasc] 10 mg PO DAILY 07/23/16 11/29/18 History Atorvastatin [Lipitor] 20 mg PO DAILY 10/21/16 11/29/18 History Aspirin EC [Ecotrin Low Dose] 81 mg PO DAILY 05/27/17 11/29/18 History Carvedilol [Coreg] 25 mg PO BID 09/29/18 11/29/18 History Albuterol Sulfate [Proair Hfa] 1 - 2 puff INHALATION RT-Q6H PRN 11/29/18 11/29/18 History Allopurinol [Zyloprim] 100 mg PO DAILY 11/29/18 11/29/18 History Lisinopril [Prinivil] 10 mg PO DAILY 11/29/18 11/29/18 History Losartan Potassium 100 mg PO DAILY 11/29/18 11/29/18 History Omeprazole [PriLOSEC] 20 mg PO DAILY 11/29/18 11/29/18 History Allergies Allergy/AdvReac Type Severity Reaction Status Date / Time morphine Allergy Anaphylaxis Verified 11/29/18 14:34 pineapple Allergy Swelling Verified 11/29/18 14:34 Physical Examination - Vital Signs Vital Signs: Vital Signs Temp Pulse Pulse Resp BP BP Pulse Ox 11/30/18 12:00 55 L 16 113/75 97 11/30/18 11:22 16 11/30/18 08:00 96.4 F L 51 L 16 119/70 96 11/30/18 04:00 98 F 59 L 19 103/71 11/29/18 23:27 59 L 19 11/29/18 23:25 59 L 19 104/65 95 11/29/18 20:00 97.5 F L 55 L 20 128/77 97 11/29/18 17:13 98 F 61 16 114/87 95 11/29/18 17:00 62 16 122/85 96 11/29/18 16:35 97.6 F 53 L 20 124/69 98 11/29/18 16:30 54 L 18 122/83 92 L 11/29/18 14:53 57 L 16 132/87 96 Intake and Output 11/29/18 11/30/18 11/30/18 22:59 06:59 14:59 Intake Total 1000 240 Output Total 550 Balance 450 240 Intake: Oral 1000 240 Output: Urine 550 Other: Voiding Method Toilet Toilet Toilet # Voids 1 1 Weight 82.4 kg 81.8 kg Gen NAD Pleasant and cooperative HEENT NCAT Sclera without icterus O/P clear Neck Supple No carotid bruit Cor RRR no m/r/g Lungs CTAB Abd Soft NTND +BS Ext Warm to touch No edema Neuro MS A+Ox4 Normal fluency Able to follow all commands CN PERRL VFF no APD EOMI no nystagmus or ANGELICA Mild left UMN FD Masseter's symmetric Hearing intact to normal voice bilaterally Speech not dysarthric Equal elevation of palate Tongue midline Sym shrug and SCM bilaterally Motor Normal bulk LUE with contracture and spasticity LUE >antigravity but cannot sustain arm straight for pronator drift test No RUE or BLE drift No tremors Strength 5/5 RU&LE and LLE 3-4/5 LUE Sens Intact to LT x4 No neglect or extinction Coord No dysmetria on FTN on the right DTRs 2+/4 right and LLE 3+/4 LUE Toes withdrawn bilaterally no ankle clonus Gait Deferred NIHSS 3- 2-LUE 1-FD Results - Laboratory Findings CBC and BMP: 11/30/18 06:57 11/30/18 06:57 Abnormal Lab Findings: Abnormal Labs 11/29/18 11/29/18 11/29/18 13:24 13:24 13:31 RDW 16.6 H Plt Count 91 L Chloride 108 H Creatinine 1.55 H Total Protein Albumin 3.4 L U Marijuana (THC) Screen Detected H 11/30/18 11/30/18 06:57 06:57 RDW 16.7 H Plt Count 89 L Chloride 108 H Creatinine 1.58 H Total Protein 6.1 L Albumin 2.9 L U Marijuana (THC) Screen - Diagnostic Findings Additional findings: CT Head wo cont 11/29/18. Multiple previous lacunar ischemic infarcts including posterior limb of the right internal capsule. No acute intracranial abnormalities are seen. Carotid duplex 11/29/18. No BICA stenosis. TTE 11/30/18. Normal left ventricular size. Mild concentric left ventricular hypertrophy. Grade 1 diastolic dysfunction. Left atrial size is normal. Interatrial and interventricular septum intact. I have reviewed neuroimages myself. Assessment and Plan Assessment: Worsening left sided weakness h/o CVA with left FD and LUE weakness with contracture with evidence of prior lacunar ischemic infarct in the posterior limb of the right internal capsule, r/o new CVA vs amamnestic response/recrudescence of old CVA. Evidence of multiple lacunar ischemic infarcts/cerebrovascular disease in the setting of hypertension. Thrombocytopenia, appears to be new. Plan: -MRI Brain to r/o new acute ischemic infarct. -Carotid duplex and TTE reviewed. No significant findings from vascular standpoint. -Patient neurologically stable. May treat BP to normotensive range but avoid hypotension. -Patient has evidence of multiple prior ischemic infarcts. These are not new. DDx intracranial atherosclerosis vs proximal embolic phenomenon. No structural cardiac abnormalities identified. No evidence of afib on tele thus far. Unclear history of patient being on Coumadin in ER note. Will need to obtain more history when available. -ASA for secondary stroke prophylaxis. Heme consult given new thrombocytopenia. -Statin therapy. -PT/OT/SP per protocol. -Stroke education given to patient. -DVT prophylaxis: SCDs Thank you for this consultation. Please call with ?. Time with Patient: Greater than 30 (Time spent in direct patient care, greater than 50% of which was spent in [id number] counseling and coordination of care: 70 minutes.)
--- NOTE | 2018-11-30 16:43 | MR ---
EXAMINATION TYPE: MR brain wo con DATE OF EXAM: 11/30/2018 COMPARISON: 06/23/2017 HISTORY: Left side weakness Standard multiplanar, multisequence MRI departmental protocol Multiplanar, multisequence images of the brain were acquired. Diffusion weighted imaging was performe d. FINDINGS: On the T2 and FLAIR images there is extensive patchy increased signal in the white matter o f both cerebral hemispheres. There is relative sparing of the cerebellum. There is mucosal thickening in the frontal ethmoid sphenoid and maxillary sinuses. There is mild cerebral cortical atrophy. There is no mass effect nor midline shift. There is no sign of intracranial hemorrhage. There are small areas of increased signal within the brainstem that measu re up to 3 mm. There is no evidence of definite cortical infarct. IMPRESSION: Extensive coalescent areas of abnormal increased signal in the white matter both cerebral hemispheres with areas that measure up to 1.5 cm. No evidence of cortical infarct. Similar minimal changes in th e ga and midbrain. No significant change compared to old exam. This could relate to demyelinating d isease or chronic small vessel ischemia. Stable pansinusitis..
[2018-11-30 16:54] VITALS: BP 121/79; PULSE 48
--- NOTE | 2018-12-01 14:57 | P.DS ---
Providers Date of admission: 11/29/18 15:32 Expected date of discharge: 12/01/18 Attending physician: Gunner Meneses Consults: 11/29/18 15:32 Consult Physician Routine Consulting Provider: Onel Farrar Consult Reason/Comments: TIA, previous CVA Do you want consulting provider notified?: Yes 11/30/18 11:50 Consult Physician Routine Consulting Provider: Obie Cordova Consult Reason/Comments: thrombocytopenia Do you want consulting provider notified?: Yes 11/30/18 12:14 Consult Physician Routine Consulting Provider: Jay Rogers Consult Reason/Comments: bradycardia Do you want consulting provider notified?: Yes Primary care physician: Gunnerjudah Meneses [facility] Course: Discharge diagnosis 1. Slurred speech likely related to transient ischemic attack. Head CT completed showing multiple previous lacunar infarcts. No acute intracranial abnormality. Chronic sinus mucosal disease. 2-D echo and carotid Dopplers on has been ordered. MRI of the brain has been ordered per neurology carotid Doppler and 2decho reviewed no significant findings from vascular standpoint 2. History of previous CVA with left-sided weakness 4. Thrombocytopenia. Platelets low at 89. This does appear new for patient. Hematology services have been consulted 5. Chronic kidney disease stage 3. Creatinine 1.58. This does appear improved from baseline 6. History of Obstructive sleep apnea 7. History of GERD 8. History of BPH 9. History of essential hypertension 10. Nicotine dependence. Patient educated greater than 3 minutes and patient. Patient declines nicotine patch 11. Marijuana use 12. Bradycardia. Heart rate in the 50s. Patient asymptomatic. Will continue to monitor DVT prophylaxis SCDs due to thrombocytopenia. GI prophylaxis Protonix Hospital course This is a 63-year-old male patient presented with complaints of slurred speech and fall. Patient is not able to recall the exact events of yesterday but does recall that his wanted him to come to the hospital but patient declined and went to congregation. Patient states that he was then brought to hospital after congregation per his 's request. Per ER report patient admitted to smoking marijuana prior to onset of symptoms. Patient has a history of previous CVA with left-sided weakness. Additional medical history includes heart failure, CVA, GERD, hypertension, prostate disorder, renal disease, sleep apnea, nicotine dependence and marijuana use. Head CT completed showing multiple previous lacunar infarcts. No acute intracranial abnormality. Chronic sinus mucosal disease. Chest x-ray completed showing no acute intrathoracic abnormality. EKG completed showing sinus bradycardia. Carotid Doppler and 2-D echo has been ordered. Neurology services have been consulted. At this time patient is resting comfortably in bed. Patient does have left upper sternal any weakness which she reports is chronic since his stroke. Patient does have clear speech. Patient is alert and oriented 3. No facial droop noted. Patient denies any chest pain or shortness breath. Patient denies any urinary burning or frequency On 12/01/2018 patient anxious to go home. Patient was evaluated by neurology services. Patient is from cytopenia will follow-up outpatient with hematology services This was dictated for Dr. Zaira Granados did not personally examine patient upon discharge Patient Condition at Discharge: Stable Plan - Discharge Summary Discharge Rx Participant: No New Discharge Prescriptions: New Aspirin 325 mg PO DAILY tab Continue Colchicine [Colcrys] 0.6 mg PO DAILY Tamsulosin HCl [Flomax] 0.4 mg PO DAILY amLODIPine [Norvasc] 10 mg PO DAILY Atorvastatin [Lipitor] 20 mg PO DAILY Carvedilol [Coreg] 25 mg PO BID Losartan Potassium 100 mg PO DAILY Omeprazole [PriLOSEC] 20 mg PO DAILY Lisinopril [Prinivil] 10 mg PO DAILY Albuterol Sulfate [Proair Hfa] 1 - 2 puff INHALATION RT-Q6H PRN PRN Reason: Shortness Of Breath Allopurinol [Zyloprim] 100 mg PO DAILY Discontinued Aspirin EC [Ecotrin Low Dose] 81 mg PO DAILY Discharge Medication List Colchicine [Colcrys] 0.6 mg PO DAILY 01/19/16 [History] Tamsulosin HCl [Flomax] 0.4 mg PO DAILY 01/19/16 [History] amLODIPine [Norvasc] 10 mg PO DAILY 07/23/16 [History] Atorvastatin [Lipitor] 20 mg PO DAILY 10/21/16 [History] Carvedilol [Coreg] 25 mg PO BID 09/29/18 [History] Albuterol Sulfate [Proair Hfa] 1 - 2 puff INHALATION RT-Q6H PRN 11/29/18 [History] Allopurinol [Zyloprim] 100 mg PO DAILY 11/29/18 [History] Lisinopril [Prinivil] 10 mg PO DAILY 11/29/18 [History] Losartan Potassium 100 mg PO DAILY 11/29/18 [History] Omeprazole [PriLOSEC] 20 mg PO DAILY 11/29/18 [History] Aspirin 325 mg PO DAILY tab 11/30/18 [Rx] Follow up Appointment(s)/Referral(s): Gunner Meneses MD [Primary Care Provider] - (follow up with Dr Zaira roman at 3pm Dr Meneses will go over medications.) Patient Instructions/Handouts: Ischemic Stroke (DC) Activity/Diet/Wound Care/Special Instructions: Call 911 if you experience any facial droop, slurred speech, confusion, weakness, numbness or tingling on one side of the body. Discharge Disposition: HOME SELF-CARE
== END 2018-11-30 18:04 | disposition home or self-care (01) ==
LOC: EC 12:43 → 3SCARD 15:32 → INTOOBSV 15:32 → 3SCARD 17:04 → UNDODISIN 11-30 18:04
PROVIDERS: ADMIT Internal Medicine; ATTEND Internal Medicine
DX: R47.81 Slurred speech (principal); I13.0 Hypertensive heart and chronic kidney disease with heart failure and stage 1 through stage 4 chronic kidney disease, or unspecified chronic kidney disease; D69.6 Thrombocytopenia, unspecified; G47.33 Obstructive sleep apnea (adult) (pediatric); F17.210 Nicotine dependence, cigarettes, uncomplicated; N18.3 Chronic kidney disease, stage 3 (moderate); N40.0 Benign prostatic hyperplasia without lower urinary tract symptoms; K21.9 Gastro-esophageal reflux disease without esophagitis; W19.XXXA Unspecified fall, initial encounter; I50.9 Heart failure, unspecified; M19.90 Unspecified osteoarthritis, unspecified site; J32.9 Chronic sinusitis, unspecified; M10.9 Gout, unspecified; R00.1 Bradycardia, unspecified; I69.354 Hemiplegia and hemiparesis following cerebral infarction affecting left non-dominant side; I69.892 Facial weakness following other cerebrovascular disease; I69.834 Monoplegia of upper limb following other cerebrovascular disease affecting left non-dominant side; Z79.82 Long term (current) use of aspirin; Z79.899 Other long term (current) drug therapy; Z80.1 Family history of malignant neoplasm of trachea, bronchus and lung; Z82.49 Family history of ischemic heart disease and other diseases of the circulatory system; Z88.5 Allergy status to narcotic agent; Z91.02 Food additives allergy status
CPT/HCPCS: 96360; 96361; 99285; 36415; 93005; 93306; 80053 ×2; 84484; 85025 ×2; 85610; 85730; 81003; 80306; 71045; 93880; 70450; 70551; G0378 ×2

== ENCOUNTER 2019-07-14 11:39 | Emergency (ER) | payer OTHER ==
--- NOTE | 2019-07-14 11:47 | US ---
EXAMINATION TYPE: US venous doppler duplex UE LT DATE OF EXAM: 07/14/2019 COMPARISON: NONE CLINICAL HISTORY: R22.32 swelling left upper extremity. swelling in left forearm and hand, fall where patient hit his left forearm on a table, no h/o dvt SIDE PERFORMED: Left Grayscale, color doppler, spectral doppler imaging performed of the deep veins of the upper extremiti es. There is abnormal flow, compressibility and vascular waveforms of the subclavian through brachia l vein. Left Arm: Internal echoes and non-compressibility of brachial vein extending up through subclavian. IMPRESSION: Acute left upper extremity deep venous thrombosis from the subclavian to brachial vein. Hair Boiler alerted office of findings at the end of the examination and the office wants patient jus ated in EC. The patient was sent the emergency Department.
[2019-07-14 11:55] VITALS: BP 153/93; PULSE 52; RESP 20; TEMP 97.6
[2019-07-14] MEDS ORDERED: APIXABAN 5 MG TAB PO STA (13:19)
--- NOTE | 2019-07-14 13:19 | ED ---
Upper Extremity HPI - General Chief Complaint: Extremity Injury, Upper Stated Complaint: +DVT Lt arm, from [facility] Time Seen by Provider: 07/14/19 11:56 Source: patient, RN notes reviewed Mode of arrival: ambulatory Limitations: no limitations - History of Present Illness Initial Comments: This 63-year-old male presents emergency Department with chief complaint of abnormal ultrasound. Patient states he fell one week ago had negative x-rays but states that his been persistent swelling. Ultrasound revealed evidence of DVT. Patient denies any chest pain or shortness breath no headache and no dizziness. He does take Plavix Currently. - Related Data Home Medications Medication Instructions Recorded Confirmed Colchicine [Colcrys] 0.6 mg PO DAILY 01/19/16 11/29/18 Tamsulosin HCl [Flomax] 0.4 mg PO DAILY 01/19/16 11/29/18 amLODIPine [Norvasc] 10 mg PO DAILY 07/23/16 11/29/18 Atorvastatin [Lipitor] 20 mg PO DAILY 10/21/16 11/29/18 Carvedilol [Coreg] 25 mg PO BID 09/29/18 11/29/18 Albuterol Sulfate [Proair Hfa] 1 - 2 puff INHALATION RT-Q6H PRN 11/29/18 11/29/18 Allopurinol [Zyloprim] 100 mg PO DAILY 11/29/18 11/29/18 Lisinopril [Prinivil] 10 mg PO DAILY 11/29/18 11/29/18 Losartan Potassium 100 mg PO DAILY 11/29/18 11/29/18 Omeprazole [PriLOSEC] 20 mg PO DAILY 11/29/18 11/29/18 Previous Rx's Medication Instructions Recorded Aspirin 325 mg PO DAILY tab 11/30/18 Apixaban [Eliquis Starter Pack 0 mg PO DIRECTED 30 Days #1 pack 07/14/19 (for VTE)] Allergies Allergy/AdvReac Type Severity Reaction Status Date / Time morphine Allergy Anaphylaxis Verified 07/14/19 11:55 pineapple Allergy Swelling Verified 07/14/19 11:55 Review of Systems ROS Statement: Those systems with pertinent positive or pertinent negative responses have been documented in the HPI. ROS Other: All systems not noted in ROS Statement are negative. Past Medical History Past Medical History: Heart Failure, CVA/TIA, Deep Vein Thrombosis (DVT), GERD/Reflux, Hypertension, Prostate Disorder, Renal Disease, Sleep Apnea/CPAP/BIPAP Additional Past Medical History / Comment(s): CVA with slight L arm, L leg weakness, TIA, CKD stage III, problem with his "taste buds"- nothing tastes good, gout bilateral feet and wrists, BPH, DJD, BAN- DOES'NT USE CPAP MACHINE History of Any Multi-Drug Resistant Organisms: None Reported Past Surgical History: Orthopedic Surgery Additional Past Surgical History / Comment(s): LT KNEE repair SX, RT WRIST BONE GRAFT, RT EAR SX(PATCH) , EGD, COLONOSOCPY Past Anesthesia/Blood Transfusion Reactions: No Reported Reaction Additional Past Anesthesia/Blood Transfusion Reaction / Comment(s): CLAUSTERPHOBIA Past Psychological History: No Psychological Hx Reported Smoking Status: Current some day smoker Past Alcohol Use History: None Reported Past Drug Use History: Marijuana - Past Family History Mother Family Medical History: Hypertension Father Family Medical History: Cancer Additional Family Medical History / Comment(s): LUNG CANCER General Exam Limitations: no limitations General appearance: alert, in no apparent distress Neck exam: Present: normal inspection. Absent: tenderness, meningismus, lymphadenopathy Respiratory exam: Present: normal lung sounds bilaterally. Absent: respiratory distress, wheezes, rales, rhonchi, stridor Cardiovascular Exam: Present: regular rate, normal rhythm, normal heart sounds. Absent: systolic murmur, diastolic murmur, rubs, gallop, clicks Extremities exam: Present: other (Left arm there is moderate amount swelling, neurovascular intact limited range of motion which is chronic secondary to prior CVA.) Skin exam: Present: warm, dry, intact, normal color. Absent: rash Course Vital Signs 07/14/19 11:52 Temperature 97.6 F Pulse Rate 52 L Respiratory 20 Rate Blood Pressure 153/93 O2 Sat by Pulse 97 Oximetry Medical Decision Making - Medical Decision Making Case discussed with Dr. meneses stated that the patient may be discharged with Eliquis and close follow-up. Patient given initial dose in the emergency department. Patient had no complaint of chest pain or shortness of breath he's neurovascular intact. Disposition Clinical Impression: Left upper extremity deep vein thrombosis Disposition: HOME SELF-CARE Condition: Stable Instructions (If sedation given, give patient instructions): Deep Vein Thrombosis (ED) Additional Instructions: Please return to the Emergency Department if symptoms worsen or any other concerns. Prescriptions: Apixaban [Eliquis Starter Pack (for VTE)] 0 mg PO DIRECTED 30 Days #1 pack Is patient prescribed a controlled substance at d/c from ED?: No Referrals: None,Stated [Primary Care Provider] - 1-2 days Gunner Meneses MD [STAFF PHYSICIAN] - 1-2 days Time of Disposition: 13:19
== END 2019-07-14 14:02 | disposition home or self-care (01) ==
LOC: EC 11:39
DX: I82.622 Acute embolism and thrombosis of deep veins of left upper extremity (principal); I69.354 Hemiplegia and hemiparesis following cerebral infarction affecting left non-dominant side; I13.0 Hypertensive heart and chronic kidney disease with heart failure and stage 1 through stage 4 chronic kidney disease, or unspecified chronic kidney disease; I50.9 Heart failure, unspecified; K21.9 Gastro-esophageal reflux disease without esophagitis; N40.0 Benign prostatic hyperplasia without lower urinary tract symptoms; M10.9 Gout, unspecified; F17.200 Nicotine dependence, unspecified, uncomplicated; Z88.5 Allergy status to narcotic agent; Z91.018 Allergy to other foods; Z79.02 Long term (current) use of antithrombotics/antiplatelets; Z79.899 Other long term (current) drug therapy; Z82.49 Family history of ischemic heart disease and other diseases of the circulatory system
CPT/HCPCS: 99283

== ENCOUNTER 2019-07-19 13:18 | Observation (INO) | payer OTHER ==
--- NOTE | 2019-07-19 13:52 | ED ---
General Adult HPI - General Chief complaint: Extremity Problem,Nontraumatic Stated complaint: hand swelling Time Seen by Provider: 07/19/19 13:50 Source: patient, RN notes reviewed, old records reviewed Mode of arrival: ambulatory Limitations: no limitations - History of Present Illness Initial comments: This is a 63-year-old male who presents emergency Department with a recent past medical history significant for DVT in the left upper extremity. Patient states since that time he's been on eliquis in the swelling is gotten progressively worse. Patient states the arm is not voices eyes together arm. Patient denies any difficulty breathing or chest pain. Patient denies any shortness of breath. She denies any fever chills. Patient denies lightheadedness or dizziness. Patient denies any other sites of bleeding. Patient denies any other new symptoms. Patient states he's had a stroke in the past he has some residual deficit on the left side that arm is weak so he does not use it is much. - Related Data Home Medications Medication Instructions Recorded Confirmed Colchicine [Colcrys] 0.6 mg PO DAILY 01/19/16 11/29/18 Tamsulosin HCl [Flomax] 0.4 mg PO DAILY 01/19/16 11/29/18 amLODIPine [Norvasc] 10 mg PO DAILY 07/23/16 11/29/18 Atorvastatin [Lipitor] 20 mg PO DAILY 10/21/16 11/29/18 Carvedilol [Coreg] 25 mg PO BID 09/29/18 11/29/18 Albuterol Sulfate [Proair Hfa] 1 - 2 puff INHALATION RT-Q6H PRN 11/29/18 11/29/18 Allopurinol [Zyloprim] 100 mg PO DAILY 11/29/18 11/29/18 Lisinopril [Prinivil] 10 mg PO DAILY 11/29/18 11/29/18 Losartan Potassium 100 mg PO DAILY 11/29/18 11/29/18 Omeprazole [PriLOSEC] 20 mg PO DAILY 11/29/18 11/29/18 Previous Rx's Medication Instructions Recorded Aspirin 325 mg PO DAILY tab 11/30/18 Apixaban [Eliquis Starter Pack 0 mg PO DIRECTED 30 Days #1 pack 07/14/19 (for VTE)] Allergies Allergy/AdvReac Type Severity Reaction Status Date / Time morphine Allergy Anaphylaxis Verified 07/19/19 13:23 pineapple Allergy Swelling Verified 07/19/19 13:23 Review of Systems ROS Statement: Those systems with pertinent positive or pertinent negative responses have been documented in the HPI. ROS Other: All systems not noted in ROS Statement are negative. Past Medical History Past Medical History: Heart Failure, CVA/TIA, Deep Vein Thrombosis (DVT), GERD/Reflux, Hypertension, Prostate Disorder, Renal Disease, Sleep Apnea/CPAP/BIPAP Additional Past Medical History / Comment(s): CVA with slight L arm, L leg weakness, TIA, CKD stage III, problem with his "taste buds"- nothing tastes good, gout bilateral feet and wrists, BPH, DJD, BAN- DOES'NT USE CPAP MACHINE History of Any Multi-Drug Resistant Organisms: None Reported Past Surgical History: Orthopedic Surgery Additional Past Surgical History / Comment(s): LT KNEE repair SX, RT WRIST BONE GRAFT, RT EAR SX(PATCH) , EGD, COLONOSOCPY Past Anesthesia/Blood Transfusion Reactions: No Reported Reaction Additional Past Anesthesia/Blood Transfusion Reaction / Comment(s): CLAUSTERPHOBIA Past Psychological History: No Psychological Hx Reported Smoking Status: Current some day smoker Past Alcohol Use History: Occasional Past Drug Use History: Marijuana - Past Family History Mother Family Medical History: Hypertension Father Family Medical History: Cancer Additional Family Medical History / Comment(s): LUNG CANCER General Exam - General Exam Comments Initial Comments: GENERAL: Patient is well-developed and well-nourished. Patient is nontoxic and well- hydrated and is in no acute distress. EYES: The sclera were anicteric and conjunctiva were pink and moist. Extraocular movements were intact and pupils were equal round and reactive to light. Eyelids were unremarkable. PULMONARY: Unlabored respirations. Good breath sounds bilaterally. No audible rales rhonchi or wheezing was noted. CARDIOVASCULAR: There is a regular rate and rhythm without any murmurs gallops or rubs. ABDOMEN: Soft and nontender with normal bowel sounds. No palpable organomegaly was noted. There is no palpable pulsatile mass. SKIN: Skin is clear with no lesions or rashes and otherwise unremarkable. NEUROLOGIC: Patient is alert and oriented x3. Cranial nerves II through XII are grossly intact. Left upper extremity is weak in comparison to the right. This is not new. MUSCULOSKELETAL: Normal extremities with adequate strength and full range of motion. Left upper extremity is extremely swollen probably why suicide the right extremity. Patient has good radial pulses bilaterally LYMPHATICS: No significant lymphadenopathy is noted PSYCHIATRIC: Normal psychiatric evaluation. Limitations: no limitations Course Vital Signs 07/19/19 13:20 Temperature 97.9 F Pulse Rate 54 L Respiratory 16 Rate Blood Pressure 113/75 O2 Sat by Pulse 100 Oximetry Medical Decision Making - Medical Decision Making Spoke with Dr. Hwang and he wanted the patient admitted placed on heparin and have vascular surgeon consulted. I admitted the patient I wrote admitting orders. I started heparin. I continued heparin the floor. I consulted plastic surgery. EKG shows sinus bradycardia 55 bpm VT interval is on a 96 QRS is 100 QT interval 450 QTC is 4:30. Patient's EKG shows no ST segment elevation or depression. Disposition Clinical Impression: Deep vein thrombosis (DVT) of upper extremity Disposition: ADMITTED IP TO THIS HOSP Referrals: Gunner Meneses MD [Primary Care Provider] - 1-2 days Time of Disposition: 13:55
[2019-07-19] MEDS ORDERED: HEPARIN SODIUM,PORCINE 5,000 UNIT/ML 1 ML VIAL IV ONE (13:53)
[2019-07-19] MEDS ORDERED: HEPARIN SOD,PORK IN 0.45% NACL 25,000 UNIT in 0.45% NACL 1 250ML.BAG IV SCH (14:00)
[2019-07-19] MEDS ORDERED: SODIUM CHLORIDE 0.9% 1,000 ML IV ONE (14:26)
[2019-07-19] MEDS ORDERED: HYDROmorphone 1 MG/ML 1 ML SYRINGE IVP STA (14:30)
[2019-07-19 14:55] LABS: Basophils % (A) 1 %; Eosinophils # (A) 0.7 k/uL (0-0.7); Eosinophils % (A) 10 %; HCT 42.6 % (39.0-53.0); HGB 14.1 gm/dL (13.0-17.5); Lymphocytes % (A) 42 %; MCHC 33.2 g/dL (31.0-37.0); MCV 87.4 fL (80.0-100.0); Mean Platelet Volume 9.2; Monocytes # (A) 0.6 k/uL (0-1.0); Monocytes % (A) 8 %; Neutrophils # (A) 2.5 k/uL (1.3-7.7); Neutrophils % (A) 36 %; Platelet Count 131 k/uL (150-450); RBC 4.87 m/uL (4.30-5.90); RDW 15.3 % (11.5-15.5); WBC 7.2 k/uL (3.8-10.6)
[2019-07-19 14:57] LABS: Calcium 8.4 mg/dL (8.4-10.2); Total Bilirubin 0.4 mg/dL (0.2-1.3); Total Protein 6.2 g/dL (6.3-8.2)
[2019-07-19 15:12] LABS: INR 1.1 (<1.2); Partial Thromboplastin Time 24.6 sec (22.0-30.0); Prothrombin Time 11.6 sec (9.0-12.0)
--- NOTE | 2019-07-19 15:32 | P.HPPUL ---
History of Present Illness H&P Date: 07/19/19 Chief Complaint: Left upper extremity swelling This is a 63-year-old male patient has the progressive swelling of left upper extremity patient has significant history of deep venous thrombosis in left or per extremity in the past, risk factors being CVA involving left sided weakness with reduced mobility and restrictive movement of left side especially upper extremity causing recurrent thrombosis and likely failed Eliquis therapy Review of Systems All systems: negative Past Medical History Past Medical History: Heart Failure, CVA/TIA, Deep Vein Thrombosis (DVT), GERD/Reflux, Hypertension, Prostate Disorder, Renal Disease, Sleep Apnea/CPAP/BIPAP Additional Past Medical History / Comment(s): CVA with slight L arm, L leg weakness, TIA, CKD stage III, problem with his "taste buds"- nothing tastes good, gout bilateral feet and wrists, BPH, DJD, BAN- DOES'NT USE CPAP MACHINE History of Any Multi-Drug Resistant Organisms: None Reported Past Surgical History: Orthopedic Surgery Additional Past Surgical History / Comment(s): LT KNEE repair SX, RT WRIST BONE GRAFT, RT EAR SX(PATCH) , EGD, COLONOSOCPY Past Anesthesia/Blood Transfusion Reactions: No Reported Reaction Additional Past Anesthesia/Blood Transfusion Reaction / Comment(s): CLA USTERPHOBIA Past Psychological History: No Psychological Hx Reported Smoking Status: Current some day smoker Past Alcohol Use History: Occasional Past Drug Use History: Marijuana - Past Family History Mother Family Medical History: Hypertension Father Family Medical History: Cancer Additional Family Medical History / Comment(s): LUNG CANCER Medications and Allergies Home Medications Medication Instructions Recorded Confirmed Type Colchicine [Colcrys] 0.6 mg PO DAILY 01/19/16 07/19/19 History Tamsulosin HCl [Flomax] 0.4 mg PO DAILY 01/19/16 07/19/19 History amLODIPine [Norvasc] 10 mg PO DAILY 07/23/16 07/19/19 History Atorvastatin [Lipitor] 20 mg PO HS 10/21/16 07/19/19 History Carvedilol [Coreg] 25 mg PO BID 09/29/18 07/19/19 History Albuterol Sulfate [Proair Hfa] 1 - 2 puff INHALATION RT-Q6H PRN 11/29/18 07/19/19 History Allopurinol [Zyloprim] 100 mg PO DAILY 11/29/18 07/19/19 History Losartan Potassium 100 mg PO DAILY 11/29/18 07/19/19 History Omeprazole [PriLOSEC] 20 mg PO DAILY 11/29/18 07/19/19 History Apixaban [Eliquis Starter Pack 5 - 10 mg PO DIRECTED 07/19/19 07/19/19 History (for VTE)] Aspirin EC [Ecotrin Low Dose] 81 mg PO DAILY 07/19/19 07/19/19 History Docusate Sodium [Dok] 100 mg PO BID 07/19/19 07/19/19 History Gabapentin [Neurontin] 400 mg PO TID 07/19/19 07/19/19 History Hydrocodone/Acetaminophen [[place] 1 tab PO TID PRN 07/19/19 07/19/19 History 10-325] Allergies Allergy/AdvReac Type Severity Reaction Status Date / Time morphine Allergy Anaphylaxis Verified 07/19/19 14:37 pineapple Allergy Swelling Verified 07/19/19 14:37 Physical Examination Vital signs: Vital Signs Temp Pulse Resp BP Pulse Ox 97.9 F 54 L 16 113/75 100 07/19/19 13:20 07/19/19 13:20 07/19/19 13:20 07/19/19 13:20 07/19/19 13:20 General appearance: no acute distress, alert, appears uncomfortable ENT: oropharynx erythematous Neck: supple, no lymphadenopathy, no JVD Auscultation: Bilateral: clear Percussion: Bilateral: not dull Tactile fremitus: Bilateral: normal Gastrointestinal: normoactive bowel sounds Integumentary Comment(s): Left upper extremity twice the size of right Extremities: no cyanosis Musculoskeletal: ROM normal normal mental status, CN II-XII normal Neurologic Comment(s): Slight left sided weakness mood appropriate, affect normal Results - Laboratory Findings CBC and BMP: 07/19/19 14:26 07/19/19 14:26 PT/INR, D-dimer PT 11.6 sec (9.0-12.0) 07/19/19 14:26 INR 1.1 (<1.2) 07/19/19 14:26 Abnormal lab findings: Abnormal Labs 07/19/19 07/19/19 14:26 14:26 Plt Count 131 L BUN 22 H Creatinine 1.34 H Glucose 112 H ALT 51 H Total Protein 6.2 L Albumin 3.0 L Assessment and Plan Assessment: Left upper extremity deep venous thrombosis Extensive swelling of left upper extremity tendency for complication like skin breakdown infection Right-sided is CVA with left-sided weakness residual Hypertension hypertensive cardiovascular disease COPD Obstructive sleep apnea not using CPAP machine Plan: Start heparin drip Ultrasound of the upper extremity Vascular surgery consult Further recommendations pending plan of care as per clinical response of patient Time with Patient: Greater than 30
--- NOTE | 2019-07-19 16:31 | P.GSCN ---
History of Present Illness Consult date: 07/19/19 Reason for Consult: Left upper extremity DVT History of present illness: Patient is 63-year-old -[place] male who presented to the emergency room after increased swelling in his left hand. He was recently diagnosed and treated for a left upper extremity DVT on July 14, 2019 and was told to return to the emergency department if he saw any increase in his swelling. He was discharged home on [facility] starter pack. The patient stated last week he fell and hit his left arm on Friday night, then woke up on Friday noticing pain and swelling in his left arm. The patient has a past medical history that includes heart failure, CVA/TIA, GERD, hypertension, prostate disorder, renal disease, sleep apnea, and chronic kidney disease. The patient states he has had left arm and leg weakness since his prior stroke it is difficult for him to elevate his left upper extremity. The patient denies any past history of DVTs, PE, or clotting disorders. He denies any shortness of breath, pain with breathing, or chest pains. Patient had a left upper extremity venous Doppler on 07/14/2019 which showed an acute left upper extremity deep venous thrombosis from the subclavian to the brachial vein. Patient is a current smoker. Review of Systems A 14 point review of systems was completed all pertinent positives and negatives as stated in the HPI. Past Medical History Past Medical History: Heart Failure, CVA/TIA, Deep Vein Thrombosis (DVT), GERD/Reflux, Hypertension, Prostate Disorder, Renal Disease, Sleep Apnea/CPAP/BIPAP Additional Past Medical History / Comment(s): CVA with slight L arm, L leg weakness, TIA, CKD stage III, problem with his "taste buds"- nothing tastes good, gout bilateral feet and wrists, BPH, DJD, BAN- DOES'NT USE CPAP MACHINE History of Any Multi-Drug Resistant Organisms: None Reported Past Surgical History: Orthopedic Surgery Additional Past Surgical History / Comment(s): LT KNEE repair SX, RT WRIST BONE GRAFT, RT EAR SX(PATCH) , EGD, COLONOSOCPY Past Anesthesia/Blood Transfusion Reactions: No Reported Reaction Additional Past Anesthesia/Blood Transfusion Reaction / Comm: CLAUSTERPHOBIA Past Psychological History: No Psychological Hx Reported Smoking Status: Current some day smoker Past Alcohol Use History: Occasional Past Drug Use History: Marijuana - Past Family History Mother Family Medical History: Hypertension Father Family Medical History: Cancer Additional Family Medical History / Comment(s): LUNG CANCER Medications and Allergies Home Medications Medication Instructions Recorded Confirmed Type Colchicine [Colcrys] 0.6 mg PO DAILY 01/19/16 07/19/19 History Tamsulosin HCl [Flomax] 0.4 mg PO DAILY 01/19/16 07/19/19 History amLODIPine [Norvasc] 10 mg PO DAILY 07/23/16 07/19/19 History Atorvastatin [Lipitor] 20 mg PO HS 10/21/16 07/19/19 History Carvedilol [Coreg] 25 mg PO BID 09/29/18 07/19/19 History Albuterol Sulfate [Proair Hfa] 1 - 2 puff INHALATION RT-Q6H PRN 11/29/18 07/19/19 History Allopurinol [Zyloprim] 100 mg PO DAILY 11/29/18 07/19/19 History Losartan Potassium 100 mg PO DAILY 11/29/18 07/19/19 History Omeprazole [PriLOSEC] 20 mg PO DAILY 11/29/18 07/19/19 History Apixaban [Eliquis Starter Pack 5 - 10 mg PO DIRECTED 07/19/19 07/19/19 History (for VTE)] Aspirin EC [Ecotrin Low Dose] 81 mg PO DAILY 07/19/19 07/19/19 History Docusate Sodium [Dok] 100 mg PO BID 07/19/19 07/19/19 History Gabapentin [Neurontin] 400 mg PO TID 07/19/19 07/19/19 History Hydrocodone/Acetaminophen [[place] 1 tab PO TID PRN 07/19/19 07/19/19 History 10-325] Allergies Allergy/AdvReac Type Severity Reaction Status Date / Time morphine Allergy Anaphylaxis Verified 07/19/19 14:37 pineapple Allergy Swelling Verified 07/19/19 14:37 Surgical - Exam Vital Signs Temp Pulse Resp BP Pulse Ox 97.9 F 54 L 16 113/75 100 07/19/19 13:20 07/19/19 13:20 07/19/19 13:20 07/19/19 13:07/19/19 13:20 General appearance: The patient is alert, oriented, in no acute distress. HET: Head is normocephalic and atraumatic. Neck: Supple without lymphadenopathy. Trachea midline. Heart: S1 S2. Regular rate and rhythm. Lungs: No crackles or wheezes are heard. Abdomen: Soft, nontender, nondistended with bowel sounds. No peritoneal signs. No palpable organomegaly or masses. Extremities: Normal skin color and turgor. Radial pulses are 2/4 bilaterally. Left upper extremity swelling from hand up towards left shoulder with good mobility, sensory-motor intact. Neurological: No focal deficits. Strength and sensation are grossly intact. Results - Labs 07/19/19 14:26 07/19/19 14:26 Abnormal Lab Results - Last 24 Hours (Table) 07/19/19 07/19/19 Range/Units 14: 14: Plt Count 131 L (150-450) k/uL BUN 22 H (9-20) mg/dL Creatinine 1.34 H (0.66-1.25) mg/dL Glucose 112 H (74-99) mg/dL ALT 51 H (4-49) U/L Total Protein 6.2 L (6.3-8.2) g/dL Albumin 3.0 L (3.5-5.0) g/dL Diabetes panel 07/19/19 Range/Units 14:26 Sodium 137 (137-145) mmol/L Potassium 4.0 (3.5-5.1) mmol/L Chloride 105 (98-107) mmol/L Carbon Dioxide 28 (22-30) mmol/L BUN 22 H (9-20) mg/dL Creatinine 1.34 H (0.66-1.25) mg/dL Glucose 112 H (74-99) mg/dL Calcium 8.4 (8.4-10.2) mg/dL AST 43 (17-59) U/L ALT 51 H (4-49) U/L Alkaline Phosphatase 91 (38-126) U/L Total Protein 6.2 L (6.3-8.2) g/dL Albumin 3.0 L (3.5-5.0) g/dL Calcium panel 07/19/19 Range/Units 14:26 Calcium 8.4 (8.4-10.2) mg/dL Albumin 3.0 L (3.5-5.0) g/dL Pituitary panel 07/19/19 Range/Units 14:26 Sodium 137 (137-145) mmol/L Potassium 4.0 (3.5-5.1) mmol/L Chloride 105 (98-107) mmol/L Carbon Dioxide 28 (22-30) mmol/L BUN 22 H (9-20) mg/dL Creatinine 1.34 H (0.66-1.25) mg/dL Glucose 112 H (74-99) mg/dL Calcium 8.4 (8.4-10.2) mg/dL Adrenal panel 07/19/19 Range/Units 14:26 Sodium 137 (137-145) mmol/L Potassium 4.0 (3.5-5.1) mmol/L Chloride 105 (98-107) mmol/L Carbon Dioxide 28 (22-30) mmol/L BUN 22 H (9-20) mg/dL Creatinine 1.34 H (0.66-1.25) mg/dL Glucose 112 H (74-99) mg/dL Calcium 8.4 (8.4-10.2) mg/dL Total Bilirubin 0.4 (0.2-1.3) mg/dL AST 43 (17-59) U/L ALT 51 H (4-49) U/L Alkaline Phosphatase 91 (38-126) U/L Total Protein 6.2 L (6.3-8.2) g/dL Albumin 3.0 L (3.5-5.0) g/dL Assessment and Plan Assessment: #1 Left upper extremity DVT #2 prior history of CVA/TIA #3 heart failure #4 hypertension #5 tobacco abuse Plan: Patient discussed with Dr. Grubbs. Elevate left upper extremity, may apply compression stocking to left upper extremity. Continue IV heparin drip. Further recommendations to follow. Thank you for this consultation and allowing us to take part in the plan of care of this patient during his hospital stay. The above dictated assessment and findings were discussed with Dr. Grubbs. The impression and plan of care have been directed as dictated.
[2019-07-19] MEDS ORDERED: HYDROcodone/APAP 10-325MG 1 EACH TAB PO PRN (16:53)
[2019-07-19] MEDS ORDERED: ATORVASTATIN 20 MG TAB PO SCH (21:00)
[2019-07-19 21:30] VITALS: RESP 20; TEMP 97.7
[2019-07-19] MEDS: DOCUSATE 100 MG CAP PO SCH (21:49)
[2019-07-19] MEDS: CARVEDILOL 12.5 MG TAB PO SCH (21:49)
[2019-07-19] MEDS: GABAPENTIN 400 MG CAP PO SCH (21:50)
[2019-07-20 04:40] VITALS: BP 119/79; PULSE 48
[2019-07-20] MEDS ORDERED: PANTOPRAZOLE 40 MG TABLET PO SCH (07:30)
[2019-07-20] MEDS: CARVEDILOL 12.5 MG TAB PO SCH (08:28)
[2019-07-20] MEDS: DOCUSATE 100 MG CAP PO SCH (08:28)
[2019-07-20] MEDS: GABAPENTIN 400 MG CAP PO SCH (08:30)
[2019-07-20] MEDS ORDERED: ALLOPURINOL 100 MG TAB PO SCH (09:00)
[2019-07-20] MEDS ORDERED: APIXABAN 5 MG TAB PO SCH (09:00)
[2019-07-20] MEDS ORDERED: ASPIRIN 81 MG PO SCH (09:00)
[2019-07-20] MEDS ORDERED: LOSARTAN 50 MG TAB PO SCH (09:00)
[2019-07-20] MEDS ORDERED: TAMSULOSIN 0.4 MG CAP.ER.24H PO SCH (09:00)
[2019-07-20] MEDS ORDERED: amLODIPine 10 MG TAB PO SCH (09:00)
[2019-07-20] MEDS ORDERED: COLCHICINE 0.6 MG EACH PO SCH (09:00)
--- NOTE | 2019-07-20 10:29 | P.PN ---
Subjective Progress Note Date: 07/20/19 Patient seen and examined sitting up at the bedside eating breakfast. Patient states no changes through the night. Denies any shortness of breath, chest pain, or increased pain in the left upper extremity. Patient continues to have mobility in the left upper extremity. He states he had his arm elevated through the night, and has seen some decrease in his swelling. Objective - Vital Signs Vital signs: Vital Signs Temp 97.7 F 07/20/19 04:39 Pulse 48 L 07/20/19 04:39 Resp 20 07/20/19 04:39 BP 119/79 07/20/19 04:39 Pulse Ox 98 07/20/19 04:39 Intake & Output 07/19/19 07/20/19 07/20/19 18:59 06:59 18:59 Intake Total 500 Balance 500 Weight 94.801 kg Intake: Oral 500 Other: # Voids 2 - Exam General appearance: The patient is alert, oriented, in no acute distress. HET: Head is normocephalic and atraumatic. Neck: Supple without lymphadenopathy. Trachea midline. Heart: S1 S2. Regular rate and rhythm. Lungs: No crackles or wheezes are heard. Extremities: Normal skin color and turgor. Left upper extremity with decreased swelling, positive palpable radial pulse, motor sensory intact. - Labs CBC & Chem 7: 07/19/19 14:26 07/19/19 14:26 Labs: Abnormal Lab Results - Last 24 Hours (Table) 07/19/19 07/19/19 07/19/19 Range/Units 14:26 14:26 20:05 Plt Count 131 L (150-450) k/uL APTT 63.2 H (22.0-30.0) sec BUN 22 H (9-20) mg/dL Creatinine 1.34 H (0.66-1.25) mg/dL Glucose 112 H (74-99) mg/dL ALT 51 H (4-49) U/L Total Protein 6.2 L (6.3-8.2) g/dL Albumin 3.0 L (3.5-5.0) g/dL Assessment and Plan Assessment: #1 Left upper extremity DVT #2 prior history of CVA/TIA #3 heart failure #4 hypertension #5 tobacco abuse Plan: Continue with elevation of the left upper extremity with pillows; patient instructed to continue this at home while sitting and laying in bed. Discussed with nursing staff to apply compression stocking to the left upper extremity to help with swelling. May discontinue heparin drip and start patient back on Eliquis. Patient states he has Eliquis from last admission at home and will continue his started pack. Smoking cessation. Patient to follow-up with Dr. Grubbs in the next 7-10 days. The above dictated assessment and findings were discussed with Dr. Grubbs. The impression and plan of care have been directed as dictated.
--- NOTE | 2019-07-25 11:12 | P.DS ---
Providers Date of admission: 07/19/19 14:26 Expected date of discharge: 07/20/19 Attending physician: Gunner Meneses Consults: 07/19/19 14:26 Consult Physician Urgent Consulting Provider: Naty Grubbs Consult Reason/Comments: Left upper extremity DVT Do you want consulting provider notified?: Yes Primary care physician: [facility] Course: 07/20/2019, patient seen eval examined during rounds sitting upright on the bed eating breakfast denies any chest pain denies any shortness of breath and doing well, swelling in the arm decreased with elevation, patient has been eval by vascular surgery recommended to continue anticoagulation and follow-up as outpatient basis patient sees Dr. Meneses will schedule follow-up with him at outpatient patient would like to go home discharged him, patient have been provided instruction with arm elevation and slightly This is a 63-year-old male patient has the progressive swelling of left upper extremity patient has significant history of deep venous thrombosis in left or per extremity in the past, risk factors being CVA involving left sided weakness with reduced mobility and restrictive movement of left side especially upper extremity causing recurrent thrombosis and likely failed Eliquis therapy Assessment: Left upper extremity deep venous thrombosis Extensive swelling of left upper extremity tendency for complication like skin breakdown infection Right-sided is CVA with left-sided weakness residual Hypertension hypertensive cardiovascular disease COPD Obstructive sleep apnea not using CPAP machine Patient Condition at Discharge: Good Plan - Discharge Summary Discharge Rx Participant: No New Discharge Prescriptions: No Action Colchicine [Colcrys] 0.6 mg PO DAILY Tamsulosin HCl [Flomax] 0.4 mg PO DAILY amLODIPine [Norvasc] 10 mg PO DAILY Atorvastatin [Lipitor] 20 mg PO HS Carvedilol [Coreg] 25 mg PO BID Losartan Potassium 100 mg PO DAILY Omeprazole [PriLOSEC] 20 mg PO DAILY Albuterol Sulfate [Proair Hfa] 1 - 2 puff INHALATION RT-Q6H PRN PRN Reason: Shortness Of Breath Allopurinol [Zyloprim] 100 mg PO DAILY Apixaban [Eliquis Starter Pack (for VTE)] 5 - 10 mg PO DIRECTED Aspirin EC [Ecotrin Low Dose] 81 mg PO DAILY Docusate Sodium [Dok] 100 mg PO BID Gabapentin [Neurontin] 400 mg PO TID Hydrocodone/Acetaminophen [[place] 10-325] 1 tab PO TID PRN PRN Reason: Pain Discharge Medication List Colchicine [Colcrys] 0.6 mg PO DAILY 01/19/16 [History] Tamsulosin HCl [Flomax] 0.4 mg PO DAILY 01/19/16 [History] amLODIPine [Norvasc] 10 mg PO DAILY 07/23/16 [History] Atorvastatin [Lipitor] 20 mg PO HS 10/21/16 [History] Carvedilol [Coreg] 25 mg PO BID 09/29/18 [History] Albuterol Sulfate [Proair Hfa] 1 - 2 puff INHALATION RT-Q6H PRN 11/29/18 [History] Allopurinol [Zyloprim] 100 mg PO DAILY 11/29/18 [History] Losartan Potassium 100 mg PO DAILY 11/29/18 [History] Omeprazole [PriLOSEC] 20 mg PO DAILY 11/29/18 [History] Apixaban [Eliquis Starter Pack (for VTE)] 5 - 10 mg PO DIRECTED 07/19/19 [Hi story] Aspirin EC [Ecotrin Low Dose] 81 mg PO DAILY 07/19/19 [History] Docusate Sodium [Dok] 100 mg PO BID 07/19/19 [History] Gabapentin [Neurontin] 400 mg PO TID 07/19/19 [History] Hydrocodone/Acetaminophen [[place] 10-325] 1 tab PO TID PRN 07/19/19 [History] Follow up Appointment(s)/Referral(s): Naty Grubbs DO [STAFF PHYSICIAN] - 08/04/19 11:00 am (1-2 weeks) Gunner Meneses MD [Primary Care Provider] - 07/22/19 2:15 pm Trevor Saldana MD [STAFF PHYSICIAN] - 07/21/19 1:45 pm Activity/Diet/Wound Care/Special Instructions: resume taking the eliquis as prescribed. Discharge Disposition: Left Against Medical Advice
== END 2019-07-20 15:48 | disposition left against medical advice (07) ==
LOC: EC 13:18 → 6NMEDSUR 14:26 → INTOOBSV 14:26 → 6NMEDSUR 15:36 → UNDODISIN 07-20 15:48
PROVIDERS: ADMIT Internal Medicine; ATTEND Internal Medicine
DX: I82.622 Acute embolism and thrombosis of deep veins of left upper extremity (principal); I13.0 Hypertensive heart and chronic kidney disease with heart failure and stage 1 through stage 4 chronic kidney disease, or unspecified chronic kidney disease; I50.22 Chronic systolic (congestive) heart failure; N18.3 Chronic kidney disease, stage 3 (moderate); F17.200 Nicotine dependence, unspecified, uncomplicated; K21.9 Gastro-esophageal reflux disease without esophagitis; J44.9 Chronic obstructive pulmonary disease, unspecified; D29.1 Benign neoplasm of prostate; G47.33 Obstructive sleep apnea (adult) (pediatric); M10.9 Gout, unspecified; M19.90 Unspecified osteoarthritis, unspecified site; F40.240 Claustrophobia; Z91.81 History of falling; Z98.890 Other specified postprocedural states; I69.354 Hemiplegia and hemiparesis following cerebral infarction affecting left non-dominant side; Z82.49 Family history of ischemic heart disease and other diseases of the circulatory system; Z80.1 Family history of malignant neoplasm of trachea, bronchus and lung; Z79.01 Long term (current) use of anticoagulants; Z79.82 Long term (current) use of aspirin; Z79.899 Other long term (current) drug therapy; Z88.5 Allergy status to narcotic agent; Z91.018 Allergy to other foods
CPT/HCPCS: 96361; 96366 ×2; 96376; 96365; 96375; 99285; 93005; 80053; 85025; 85610; 85730; G0378 ×2; J1644 ×2; J1170

== ENCOUNTER 2019-12-25 20:10 | Emergency (ER) | payer OTHER ==
[2019-12-25] MEDS ORDERED: HYDROmorphone 0.5 MG/0.5 ML SYRINGE IM STA (20:45)
--- NOTE | 2019-12-25 21:05 | ED ---
General Adult HPI - General Chief complaint: Extremity Injury, Upper Stated complaint: Fall, LT shoulder injury Time Seen by Provider: 12/25/19 20:33 Source: patient, family, RN notes reviewed Mode of arrival: wheelchair Limitations: physical limitation - History of Present Illness Initial comments: 64-year-old male with a past medical history of CVA with left-sided weakness, heart failure, DVT, GERD, hypertension, CK D stage III presents to the emergency room with left-sided arm pain. Patient states one week ago he was going to sit down in his chair when the pillow that he was sitting on slit out he fell onto the left arm. States has been painful since that time. Patient states he finally wanted to have it evaluated because he could not take the pain any longer. Patient denies any other injuries. Patient did not hit his head. Denies back pain.Patient has no other complaints at this time including shortness of breath, chest pain, abdominal pain, nausea or vomiting, headache, or visual changes. - Related Data Home Medications Medication Instructions Recorded Confirmed Colchicine [Colcrys] 0.6 mg PO DAILY 01/19/16 07/19/19 Tamsulosin HCl [Flomax] 0.4 mg PO DAILY 01/19/16 07/19/19 amLODIPine [Norvasc] 10 mg PO DAILY 07/23/16 07/19/19 Atorvastatin [Lipitor] 20 mg PO HS 10/21/16 07/19/19 Carvedilol [Coreg] 25 mg PO BID 09/29/18 07/19/19 Albuterol Sulfate [Proair Hfa] 1 - 2 puff INHALATION RT-Q6H PRN 11/29/18 07/19/19 Losartan Potassium 100 mg PO DAILY 11/29/18 07/19/19 Omeprazole [PriLOSEC] 20 mg PO DAILY 11/29/18 07/19/19 allopurinoL [Zyloprim] 100 mg PO DAILY 11/29/18 07/19/19 Apixaban [Eliquis Starter Pack 5 - 10 mg PO DIRECTED 07/19/19 07/19/19 (for VTE)] Aspirin EC [Ecotrin Low Dose] 81 mg PO DAILY 07/19/19 07/19/19 Docusate Sodium [Dok] 100 mg PO BID 07/19/19 07/19/19 Gabapentin [Neurontin] 400 mg PO TID 07/19/19 07/19/19 Hydrocodone/Acetaminophen [[place] 1 tab PO TID PRN 07/19/19 07/19/19 10-325] Allergies Allergy/AdvReac Type Severity Reaction Status Date / Time morphine Allergy Anaphylaxis Verified 12/25/19 20:30 pineapple Allergy Swelling Verified 12/25/19 20:30 Review of Systems ROS Statement: Those systems with pertinent positive or pertinent negative responses have been documented in the HPI. ROS Other: All systems not noted in ROS Statement are negative. Past Medical History Past Medical History: Heart Failure, CVA/TIA, Deep Vein Thrombosis (DVT), GERD/Reflux, Hypertension, Prostate Disorder, Renal Disease, Sleep Apnea/CPAP/BIPAP Additional Past Medical History / Comment(s): CVA with slight L arm, L leg weakness, TIA, CKD stage III, problem with his "taste buds"- nothing tastes good, gout bilateral feet and wrists, BPH, DJD, BAN- DOES'NT USE CPAP MACHINE History of Any Multi-Drug Resistant Organisms: None Reported Past Surgical History: Orthopedic Surgery Additional Past Surgical History / Comment(s): LT KNEE repair SX, RT WRIST BONE GRAFT, RT EAR SX(PATCH) , EGD, COLONOSOCPY Past Anesthesia/Blood Transfusion Reactions: No Reported Reaction Additional Past Anesthesia/Blood Transfusion Reaction / Comment(s): CLAUSTERPHOBIA Past Psychological History: No Psychological Hx Reported Smoking Status: Current every day smoker Past Alcohol Use History: Occasional Past Drug Use History: Marijuana - Past Family History Mother Family Medical History: Hypertension Father Family Medical History: Cancer Additional Family Medical History / Comment(s): LUNG CANCER General Exam Limitations: physical limitation General appearance: alert Head exam: Present: atraumatic, normocephalic, normal inspection Eye exam: Present: normal appearance, PERRL, EOMI. Absent: scleral icterus, conjunctival injection, periorbital swelling ENT exam: Present: normal exam, mucous membranes moist Neck exam: Present: normal inspection, full ROM. Absent: tenderness, meningismus, lymphadenopathy Respiratory exam: Present: normal lung sounds bilaterally. Absent: respiratory distress, wheezes, rales, rhonchi, stridor Cardiovascular Exam: Present: regular rate, normal rhythm, normal heart sounds. Absent: systolic murmur, diastolic murmur, rubs, gallop, clicks GI/Abdominal exam: Present: soft, normal bowel sounds. Absent: distended, tenderness, guarding, rebound, rigid Extremities exam: Present: full ROM (Range of motion limited of the left shoulder secondary to pain), tenderness (Tenderness of the left shoulder and left humerus.), normal capillary refill (Capillary refill less than 2 seconds, radial pulse 2+ in the left upper extremity.). Absent: pedal edema, joint swelling, calf tenderness Course Vital Signs 12/25/19 20:27 Temperature 98.2 F Pulse Rate 67 Respiratory 16 Rate Blood Pressure 131/86 O2 Sat by Pulse 96 Oximetry Medical Decision Making - Medical Decision Making X-ray of the left shoulder shows an acute comminuted impacted humeral neck fracture. NV status intact. Patient was given IM Dilaudid. Sling was ordered and given to patient. Applied by nurse. Patient was sent home with Tylenol 3 and a follow-up to orthopedics. As discussed no other injuries present. He will return here for any worsening symptoms. Disposition Clinical Impression: Fracture of neck of humerus Disposition: HOME SELF-CARE Condition: Good Instructions (If sedation given, give patient instructions): Proximal Humerus Fracture (ED) Additional Instructions: Please take Tylenol 3 as needed for pain. As discussed this could increase risk of falls so be sure to use extra caution. Follow-up with orthopedics on Friday. Use sling while awake until that time. Return here to the emergency room for any worsening symptoms. Is patient prescribed a controlled substance at d/c from ED?: No Referrals: Gunner Meneses MD [Primary Care Provider] - 1-2 days Viktor Felix DO [Medical Doctor] - 1-2 days Time of Disposition: 21:36
--- NOTE | 2019-12-25 21:13 | XR ---
EXAMINATION TYPE: XR shoulder complete LT DATE OF EXAM: 12/25/2019 COMPARISON: 05/27/2017 HISTORY: Pain TECHNIQUE: 3 views. FINDINGS: There is impacted comminuted humeral neck fracture. There is no dislocation. Scapula is intact. The AC joint is intact. IMPRESSION: Acute comminuted impacted humeral neck fracture.
--- NOTE | 2019-12-25 21:15 | XR ---
EXAMINATION TYPE: XR humerus LT DATE OF EXAM: 12/25/2019 COMPARISON: NONE HISTORY: Fall. Pain. TECHNIQUE: 5 views FINDINGS: There is impacted comminuted humeral neck fracture. There is a mild elbow joint effusion wi th posterior fat pad sign. I see no elbow joint fracture however. There is soft tissue swelling aroun d the elbow. There is no dislocation at the shoulder joint. IMPRESSION: Acute impacted humeral neck fracture. Mild elbow joint effusion. No fracture seen at the elbow.
[2019-12-25 21:58] VITALS: BP 139/88; PULSE 66; RESP 18; TEMP 97.8
== END 2019-12-25 21:57 | disposition home or self-care (01) ==
LOC: EC 20:10
DX: S42.295A Other nondisplaced fracture of upper end of left humerus, initial encounter for closed fracture (principal); I69.354 Hemiplegia and hemiparesis following cerebral infarction affecting left non-dominant side; I13.0 Hypertensive heart and chronic kidney disease with heart failure and stage 1 through stage 4 chronic kidney disease, or unspecified chronic kidney disease; N18.3 Chronic kidney disease, stage 3 (moderate); I50.9 Heart failure, unspecified; K21.9 Gastro-esophageal reflux disease without esophagitis; N40.0 Benign prostatic hyperplasia without lower urinary tract symptoms; M10.9 Gout, unspecified; F17.200 Nicotine dependence, unspecified, uncomplicated; Z79.01 Long term (current) use of anticoagulants; Z79.82 Long term (current) use of aspirin; Z79.899 Other long term (current) drug therapy; Z88.5 Allergy status to narcotic agent; Z91.018 Allergy to other foods; Z86.718 Personal history of other venous thrombosis and embolism; Z98.890 Other specified postprocedural states; W07.XXXA Fall from chair, initial encounter; Y93.89 Activity, other specified
CPT/HCPCS: 73030; 73060; 96372; 99283; J1170

== ENCOUNTER 2020-02-17 10:47 | Emergency (ER) | payer OTHER ==
[2020-02-17 10:51] VITALS: BP 135/92; PULSE 63; RESP 18; TEMP 97.9
[2020-02-17] MEDS ORDERED: predniSONE 20 MG TAB PO STA (11:23)
--- NOTE | 2020-02-17 11:26 | ED ---
Skin/Abscess/FB HPI - General Chief complaint: Skin/Abscess/Foreign Body Stated complaint: Rash, swollen eyes Time Seen by Provider: 02/17/20 10:56 Source: patient Mode of arrival: ambulatory Limitations: no limitations - History of Present Illness Initial comments: 64yo male presenting for itching of under eyes, scalp, and redness. Patient states that he has had itching, swelling and redness under his eyes that began today. Denies new soaps, medications, foods, recent travel. Denies no lotions or other skin products, denies new detergents. Patient has no new lifestyle changes stating he just woke up with the eye swelling. HE denies eye pain, or redness, drainage, fevers, or URI symptoms. Patient states his scalp itches too. Patient denies vomiting, chest pain, joint pain, or swelling in other areas, denies other areas of lesions. Denies additional complaints. - Related Data Home Medications Medication Instructions Recorded Confirmed Colchicine [Colcrys] 0.6 mg PO DAILY 01/19/16 07/19/19 Tamsulosin HCl [Flomax] 0.4 mg PO DAILY 01/19/16 07/19/19 amLODIPine [Norvasc] 10 mg PO DAILY 07/23/16 07/19/19 Atorvastatin [Lipitor] 20 mg PO HS 10/21/16 07/19/19 Carvedilol [Coreg] 25 mg PO BID 09/29/18 07/19/19 Albuterol Sulfate [Proair Hfa] 1 - 2 puff INHALATION RT-Q6H PRN 11/29/18 07/19/19 Losartan Potassium 100 mg PO DAILY 11/29/18 07/19/19 Omeprazole [PriLOSEC] 20 mg PO DAILY 11/29/18 07/19/19 allopurinoL [Zyloprim] 100 mg PO DAILY 11/29/18 07/19/19 Apixaban [Eliquis Starter Pack 5 - 10 mg PO DIRECTED 07/19/19 07/19/19 (for VTE)] Aspirin EC [Ecotrin Low Dose] 81 mg PO DAILY 07/19/19 07/19/19 Docusate Sodium [Dok] 100 mg PO BID 07/19/19 07/19/19 Gabapentin [Neurontin] 400 mg PO TID 07/19/19 07/19/19 Hydrocodone/Acetaminophen [[place] 1 tab PO TID PRN 07/19/19 07/19/19 10-325] Previous Rx's Medication Instructions Recorded predniSONE [Deltasone] 40 mg PO DAILY 4 Days #8 tab 02/17/20 Allergies Allergy/AdvReac Type Severity Reaction Status Date / Time morphine Allergy Anaphylaxis Verified 02/17/20 10:48 pineapple Allergy Swelling Verified 02/17/20 10:48 Review of Systems ROS Statement: Those systems with pertinent positive or pertinent negative responses have been documented in the HPI. ROS Other: All systems not noted in ROS Statement are negative. Past Medical History Past Medical History: Heart Failure, CVA/TIA, Deep Vein Thrombosis (DVT), GERD/Reflux, Hypertension, Prostate Disorder, Renal Disease, Sleep Apnea/CPAP/BIPAP Additional Past Medical History / Comment(s): CVA with slight L arm, L leg weakness, TIA, CKD stage III, problem with his "taste buds"- nothing tastes good, gout bilateral feet and wrists, BPH, DJD, BAN- DOES'NT USE CPAP MACHINE History of Any Multi-Drug Resistant Organisms: None Reported Past Surgical History: Orthopedic Surgery Additional Past Surgical History / Comment(s): LT KNEE repair SX, RT WRIST BONE GRAFT, RT EAR SX(PATCH) , EGD, COLONOSOCPY Past Anesthesia/Blood Transfusion Reactions: No Reported Reaction Additional Past Anesthesia/Blood Transfusion Reaction / Comment(s): CLAUSTERPHOBIA Past Psychological History: No Psychological Hx Reported Smoking Status: Current every day smoker Past Alcohol Use History: Occasional Past Drug Use History: None Reported - Past Family History Mother Family Medical History: Hypertension Father Family Medical History: Cancer Additional Family Medical History / Comment(s): LUNG CANCER General Exam - General Exam Comments Initial Comments: General: The patient is awake and alert, in no distress Eye: +3 mm pupils are equal, round and reactive to light, extra-ocular movements are intact. No nystagmus. There is normal conjunctiva bilaterally. No signs of icterus. Ears, nose, mouth and throat: There are moist mucous membranes and no oral lesions. Redness surrounding the eyes b/l circular does not appears over bridge of nose the skin appears dry. Cardiovascular: There is a regular rate and rhythm. No murmur, rub or gallop is appreciated. Respiratory: Lungs are clear to auscultation, respirations are non-labored, breath sounds are equal. No wheezes, stridor, rales, or rhonchi. Musculoskeletal: Normal ROM, no tenderness. Strength 5/5. Sensation intact. Radial pulses equal bilaterally 2+. Neurological: A&O x 3. CN II-XII intact grossly, There are no obvious motor or sensory deficits. Coordination appears grossly intact. Speech is normal. Skin: Skin is warm and dry and no rashes or lesions are noted. Psychiatric: Cooperative, appropriate mood & affect, normal judgment. Limitations: no limitations Course Vital Signs 02/17/20 10:49 Temperature 97.9 F Pulse Rate 63 Respiratory 18 Rate Blood Pressure 135/92 O2 Sat by Pulse 95 Oximetry Medical Decision Making - Medical Decision Making 64yo male presenting for cc of surrounding eye redness and itching. Patient has no other areas of involvment, appears consistent with dermatitis. no findings on exam or history consistent with concern for bacterial cause. Patient evaluated by attending Dr. Tubbs who agreed and recommended discharge with steroids and PCP f/u. Patient agreeable to care plan and discharge. Disposition Clinical Impression: Dermatitis Disposition: HOME SELF-CARE Condition: Good Instructions (If sedation given, give patient instructions): Dermatitis (ED) Additional Instructions: Please use medication as discussed. Please follow-up with family doctor in the next 2 days.. Please return to emergency room if the symptoms increase or worsen or for any other concerns. Prescriptions: predniSONE [Deltasone] 40 mg PO DAILY 4 Days #8 tab Is patient prescribed a controlled substance at d/c from ED?: No Referrals: Gunner Meneses MD [Primary Care Provider] - 1-2 days Time of Disposition: 11:26
== END 2020-02-17 11:33 | disposition home or self-care (01) ==
LOC: EC 10:47
DX: L30.9 Dermatitis, unspecified (principal); F17.200 Nicotine dependence, unspecified, uncomplicated; I13.0 Hypertensive heart and chronic kidney disease with heart failure and stage 1 through stage 4 chronic kidney disease, or unspecified chronic kidney disease; N18.3 Chronic kidney disease, stage 3 (moderate); I50.9 Heart failure, unspecified; K21.9 Gastro-esophageal reflux disease without esophagitis; I69.354 Hemiplegia and hemiparesis following cerebral infarction affecting left non-dominant side; M10.9 Gout, unspecified; N40.0 Benign prostatic hyperplasia without lower urinary tract symptoms; Z79.51 Long term (current) use of inhaled steroids; Z79.899 Other long term (current) drug therapy; Z79.01 Long term (current) use of anticoagulants; Z79.82 Long term (current) use of aspirin; Z86.718 Personal history of other venous thrombosis and embolism
CPT/HCPCS: 99282; J7512

== ENCOUNTER 2020-11-10 12:34 | Emergency (ER) | payer OTHER ==
[2020-11-10 13:18] VITALS: BP 122/78; PULSE 63; RESP 16; TEMP 97.8
--- NOTE | 2020-11-10 13:52 | ED ---
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 States it st arted about one week ago after he was getting his walker out of the truck. States the pain started as soon as he twisted to the right side. He denies any saddle anesthesia, urinary retention with overflow or bowel incontinence. States he has been evaluated recently for his back pain and Dilaudid works well for him. States he took [place] for the pain before and did not give him significant improvement. - Related Data Home Medications Medication Instructions Recorded Confirmed Tamsulosin HCl [Flomax] 0.4 mg PO DAILY 01/19/16 11/10/20 amLODIPine [Norvasc] 10 mg PO DAILY 07/23/16 11/10/20 Atorvastatin [Lipitor] 20 mg PO HS 10/21/16 11/10/20 Carvedilol [Coreg] 25 mg PO BID 09/29/18 11/10/20 Omeprazole [PriLOSEC] 20 mg PO DAILY 11/29/18 11/10/20 Aspirin EC [Ecotrin Low Dose] 81 mg PO DAILY 07/19/19 11/10/20 Gabapentin [Neurontin] 400 mg PO TID 07/19/19 11/10/20 Hydrocodone/Acetaminophen [[place] 1 tab PO TID PRN 07/19/19 11/10/20 10-325] Allopurinol [Zyloprim] 300 mg PO DAILY 11/10/20 11/10/20 Apixaban [Eliquis] 5 mg PO DAILY 11/10/20 11/10/20 Ergocalciferol [Vitamin D2 (1250 1,250 mcg PO MO 11/10/20 11/10/20 Mcg = 33177 Iu)] Nystatin 100,000Unit/gm Cream 1 applic TOPICAL BID PRN 11/10/20 11/10/20 [Mycostatin Cream] hydrALAZINE HCL [Apresoline] 200 mg PO BID 11/10/20 11/10/20 Previous Rx's Medication Instructions Recorded Lidocaine 5% Patch [Lidoderm] 1 patch TOPICAL DAILY #10 patch 11/10/20 Allergies Allergy/AdvReac Type Severity Reaction Status Date / Time morphine Allergy Anaphylaxis Verified 11/10/20 15:20 pineapple Allergy Swelling Verified 11/10/20 15:20 Review of Systems ROS Statement: Those systems with pertinent positive or pertinent negative responses have been documented in the HPI. ROS Other: All systems not noted in ROS Statement are negative. Past Medical History Past Medical History: Heart Failure, CVA/TIA, Deep Vein Thrombosis (DVT), GERD/Reflux, Hypertension, Prostate Disorder, Renal Disease, Sleep Apnea/CPAP/BIPAP Additional Past Medical History / Comment(s): CVA with slight L arm, L leg weakness, TIA, CKD stage III, problem with his "taste buds"- nothing tastes good, gout bilateral feet and wrists, BPH, DJD, BAN- DOES'NT USE CPAP MACHINE History of Any Multi-Drug Resistant Organisms: None Reported Past Surgical History: Orthopedic Surgery Additional Past Surgical History / Comment(s): LT KNEE repair SX, RT WRIST BONE GRAFT, RT EAR SX(PATCH) , EGD, COLONOSOCPY Past Anesthesia/Blood Transfusion Reactions: No Reported Reaction Additional Past Anesthesia/Blood Transfusion Reaction / Comment(s): CLAUSTERPHOBIA Past Psychological History: No Psychological Hx Reported Smoking Status: Current every day smoker Past Alcohol Use History: Occasional Past Drug Use History: None Reported - Past Family History Mother Family Medical History: Hypertension Father Family Medical History: Cancer Additional Family Medical History / Comment(s): LUNG CANCER General Exam Limitations: no limitations General appearance: alert, in no apparent distress Head exam: Present: atraumatic, normocephalic, normal inspection Eye exam: Present: normal appearance, PERRL, EOMI Pupils: Present: normal accommodation ENT exam: Present: normal exam, normal oropharynx, mucous membranes moist Neck exam: Present: normal inspection, full ROM. Absent: tenderness, lymphadenopathy Respiratory exam: Present: normal lung sounds bilaterally. Absent: respiratory distress Cardiovascular Exam: Present: regular rate, normal rhythm, normal heart sounds. Absent: systolic murmur, diastolic murmur Extremities exam: Present: normal inspection, full ROM, normal capillary refill. 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 On physical examination, right-sided paraspinal tenderness. He seems to be localized with no sciatica like symptoms. No concern for cauda equina at this time. CT of the lumbar spine reveals spinal stenosis. There is also some thickening of the thecal sac. At L2/3 and L5-S1. Patient was given symptom at a control and a Lidoderm patch. Reevaluation, patient reports improvement in symptoms. Patient will be discharged with a Lidoderm patch. He was also given Flexeril as a perception. Return parameters were discussed patient is on standing agreeable. Case discussed with Dr. Ramos. Disposition Clinical Impression: Mechanical back pain, Strain of lumbar region Disposition: HOME SELF-CARE Condition: Stable Instructions (If sedation given, give patient instructions): Acute Low Back Pain (ED) Additional Instructions: Take prescribed medication as directed. Return to emergency department if symptoms worsen. Is patient prescribed a controlled substance at d/c from ED?: No Referrals: Gunner Meneses MD [Primary Care Provider] - 1-2 days Time of Disposition: 15:36
[2020-11-10] MEDS: LIDOCAINE 5% PATCH TOPICAL STA (13:53)
[2020-11-10] MEDS: HYDROmorphone 1 MG/ML 1 ML SYRINGE IM STA (13:56)
--- NOTE | 2020-11-10 14:53 | CT ---
EXAMINATION TYPE: CT lumbar spine wo con DATE OF EXAM: 11/10/2020 COMPARISON: None HISTORY: Low back pain and leg weakness. CT DLP: 1658.4 mGycm CONTRAST: None TECHNIQUE: CT of the lumbar spine is performed on a spiral scan at 3 mm thick sections. Reconstructed images are performed in the coronal and sagittal planes. FINDINGS: T12-L1: No focal disc herniation or significant disc bulge is evident. No spinal canal stenosis or neural foraminal stenosis is present. L1-L2: No focal disc herniation or significant disc bulge is evident. No spinal canal stenosis or n eural foraminal stenosis is present L2-L3: Mild disc bulging is present with anterior thecal sac flattening. Facet hypertrophy is posteri or lateral thecal sac compression. Moderate bilateral foraminal narrowing is present. Disc space narr owing is present. L3-L4: Endplate Schmorl's nodes are present. Broad-based disc bulge has mild to moderate anterior the jayjay sac compression. Mild facet hypertrophy and ligamentum flavum laxity is present. Mild disc space narrowing is present. L4-L5: Broad-based disc bulge is mild anterior thecal sac flattening. Facet hypertrophy has posterior lateral thecal sac compression. Moderate to severe bilateral foraminal narrowing is present. L5-S1: Disc bulge is present with anterior thecal sac contact. No AP spinal canal stenosis is present . Severe bilateral foraminal narrowing is present greater on the right. IMPRESSION: Foraminal stenosis due to facet hypertrophy and disc bulging within the mid to lower lumbar spine. Th is appears greatest at L5-S1. Correlate with S1 radicular symptoms. 2. Endplate disc bulging present at L2-3 through L5-S1 with mild to moderate thecal sac compression a s discussed above. No AP spinal canal stenosis is present.
[2020-11-10] MEDS: HYDROmorphone 0.5 MG/0.5 ML SYRINGE IM STA (15:51)
== END 2020-11-10 16:12 | disposition home or self-care (01) ==
LOC: EC 12:34
DX: S39.012A Strain of muscle, fascia and tendon of lower back, initial encounter (principal); F17.200 Nicotine dependence, unspecified, uncomplicated; G47.33 Obstructive sleep apnea (adult) (pediatric); I13.0 Hypertensive heart and chronic kidney disease with heart failure and stage 1 through stage 4 chronic kidney disease, or unspecified chronic kidney disease; I50.9 Heart failure, unspecified; N18.30 Chronic kidney disease, stage 3 unspecified; K21.9 Gastro-esophageal reflux disease without esophagitis; Z79.01 Long term (current) use of anticoagulants; Z79.82 Long term (current) use of aspirin; Z86.718 Personal history of other venous thrombosis and embolism; Z86.73 Personal history of transient ischemic attack (TIA), and cerebral infarction without residual deficits; X58.XXXA Exposure to other specified factors, initial encounter; Z99.81 Dependence on supplemental oxygen
CPT/HCPCS: 72131; 99284; 96372 ×2; J1170 ×2

== ENCOUNTER 2020-11-25 13:44 | Emergency (ER) | payer OTHER ==
[2020-11-25 13:55] VITALS: TEMP 97.8
[2020-11-25] MEDS ORDERED: CYCLOBENZAPRINE 10 MG TAB PO STA (14:16)
[2020-11-25] MEDS ORDERED: LIDOCAINE 5% PATCH TOPICAL STA (14:43)
--- NOTE | 2020-11-25 14:45 | XR ---
EXAMINATION TYPE: XR lumbar spine 2 or 3V DATE OF EXAM: 11/25/2020 COMPARISON: 03/26/2018 HISTORY: Low back pain TECHNIQUE: 3 views FINDINGS: There is mild lumbar levoscoliosis. There is L3 subluxation to the left of L4 that measures 7 mm. There is hypertrophic spurring of the endplates throughout the lumbar spine. There is no compr ession fracture. Sacroiliac joints are intact. IMPRESSION: There is L3-4 lateral subluxation deformity that appears worse than last exam. No fractur e seen. Multilevel degenerative disc changes.
--- NOTE | 2020-11-25 14:51 | ED ---
Back Pain HPI - General Chief Complaint: Back Pain/Injury Stated Complaint: Back Pain Time Seen by Provider: 11/25/20 13:59 Source: patient, RN notes reviewed Limitations: no limitations - History of Present Illness Initial Comments: Patient is a 65-year-old male that presents to the emergency department complaining of right-sided low back pain. He notes that this is a chronic issue at this point. He notes he was seen here on 11/10/2020 for the same issue. He notes that he wants symptomatic control at this time. He notes his pain is approximately a 9 out of 10 with no relief from any at home medications. He did note that sitting up in his recliner slightly reclined relieves the pain. He noted that he does have a follow-up with his primary care Friday. He is as ishan for symptomatic control at this time. He was in no apparent distress while laying down in bed during the exam interview. He denied any radicular symptoms, saddle anesthesia, bladder bowel incontinence/retention chest pain shortness breath headache nausea vomiting diarrhea constipation fever fatigue chills. - Related Data Home Medications Medication Instructions Recorded Confirmed Tamsulosin HCl [Flomax] 0.4 mg PO DAILY 01/19/16 11/10/20 amLODIPine [Norvasc] 10 mg PO DAILY 07/23/16 11/10/20 Atorvastatin [Lipitor] 20 mg PO HS 10/21/16 11/10/20 Carvedilol [Coreg] 25 mg PO BID 09/29/18 11/10/20 Omeprazole [PriLOSEC] 20 mg PO DAILY 11/29/18 11/10/20 Aspirin EC [Ecotrin Low Dose] 81 mg PO DAILY 07/19/19 11/10/20 Gabapentin [Neurontin] 400 mg PO TID 07/19/19 11/10/20 Hydrocodone/Acetaminophen [[place] 1 tab PO TID PRN 07/19/19 11/10/20 10-325] Allopurinol [Zyloprim] 300 mg PO DAILY 11/10/20 11/10/20 Apixaban [Eliquis] 5 mg PO DAILY 11/10/20 11/10/20 Ergocalciferol [Vitamin D2 (1250 1,250 mcg PO MO 11/10/20 11/10/20 Mcg = 86061 Iu)] Nystatin 100,000Unit/gm Cream 1 applic TOPICAL BID PRN 11/10/20 11/10/20 [Mycostatin Cream] hydrALAZINE HCL [Apresoline] 200 mg PO BID 11/10/20 11/10/20 Previous Rx's Medication Instructions Recorded Lidocaine 5% Patch [Lidoderm] 1 patch TOPICAL DAILY #10 patch 11/10/20 Lidocaine [Lidoderm 5% Patch] 1 patch TRANSDERM DAILY 7 Days #7 11/25/20 patch Allergies Allergy/AdvReac Type Severity Reaction Status Date / Time morphine Allergy Anaphylaxis Verified 11/25/20 13:55 pineapple Allergy Swelling Verified 11/25/20 13:55 Review of Systems ROS Statement: Those systems with pertinent positive or pertinent negative responses have been documented in the HPI. ROS Other: All systems not noted in ROS Statement are negative. Past Medical History Past Medical History: Heart Failure, CVA/TIA, Deep Vein Thrombosis (DVT), GERD/Reflux, Hypertension, Prostate Disorder, Renal Disease, Sleep Apnea/CPA P/BIPAP Additional Past Medical History / Comment(s): CVA with slight L arm, L leg weakness, TIA, CKD stage III, problem with his "taste buds"- nothing tastes good, gout bilateral feet and wrists, BPH, DJD, BAN- DOES'NT USE CPAP MACHINE History of Any Multi-Drug Resistant Organisms: None Reported Past Surgical History: Orthopedic Surgery Additional Past Surgical History / Comment(s): LT KNEE repair SX, RT WRIST BONE GRAFT, RT EAR SX(PATCH) , EGD, COLONOSOCPY Past Anesthesia/Blood Transfusion Reactions: No Reported Reaction Additional Past Anesthesia/Blood Transfusion Reaction / Comment(s): CLAUSTERPHOBIA Past Psychological History: No Psychological Hx Reported Smoking Status: Current every day smoker Past Alcohol Use History: Occasional Past Drug Use History: None Reported - Past Family History Mother Family Medical History: Hypertension Father Family Medical History: Cancer Additional Family Medical History / Comment(s): LUNG CANCER General Exam Limitations: no limitations General appearance: alert, in no apparent distress Head exam: Present: atraumatic, normocephalic, normal inspection Eye exam: Present: normal appearance, PERRL, EOMI. Absent: scleral icterus, conjunctival injection, periorbital swelling Neck exam: Present: normal inspection Respiratory exam: Present: normal lung sounds bilaterally. Absent: respiratory distress, wheezes, rales, rhonchi, stridor Cardiovascular Exam: Present: regular rate, normal rhythm, normal heart sounds. Absent: systolic murmur, diastolic murmur, rubs, gallop, clicks GI/Abdominal exam: Present: soft, normal bowel sounds. Absent: distended, tenderness, guarding, rebound, rigid Extremities exam: Present: normal inspection. Absent: tenderness Back exam: Present: normal inspection. Absent: full ROM Neurological exam: Present: alert, oriented X3 Psychiatric exam: Present: normal affect, normal mood Skin exam: Present: warm, dry, intact, normal color. Absent: rash Course Vital Signs 11/25/20 13:51 Temperature 97.8 F Pulse Rate 18 L Respiratory 73 H Rate Blood Pressure 125/80 O2 Sat by Pulse 97 Oximetry Medical Decision Making - Medical Decision Making 64-year-old male complaining of low back pain that is chronic at this point asking for symptomatic control. X-ray lumbar spine, 4 mg of morphine, Lidoderm patch ordered. X-ray negative for any acute process does show a lateral subluxation slightly worse than previous studies at the L3 L4. Case discussed with Dr. Soliman, patient can discharge home with follow-up primary care and rehab specialist. - Radiology Data Radiology results: report reviewed, image reviewed Lumbar x-ray: There is L3-L4 lateral subluxation deformity that appears worse than last exam. No fracture seen. Multilevel degenerative disc changes. Disposition Clinical Impression: Mechanical back pain, Strain of lumbar region Disposition: HOME SELF-CARE Condition: Stable Instructions (If sedation given, give patient instructions): Acute Low Back Pain (ED) Additional Instructions: Please return to the Emergency Department if symptoms worsen or any other concerns. Follow-up primary care as scheduled. Follow-up with rehab specialist on feasible. Continue take at home medications as prescribed. Avoid any strenuous activity or exercise. Prescriptions: Lidocaine [Lidoderm 5% Patch] 1 patch TRANSDERM DAILY 7 Days #7 patch Is patient prescribed a controlled substance at d/c from ED?: No Referrals: Gunner Meneses MD [Primary Care Provider] - 1-2 days Shon Casiano PAC [PHYSICIAN TECHNOLOGY SERVICES MANAGER] - 1-2 days Time of Disposition: 14:58
[2020-11-25 15:22] VITALS: BP 126/82; PULSE 84; RESP 18
[2020-11-26] MEDS ORDERED: LIDOCAINE 5% PATCH TOPICAL SCH (09:00)
== END 2020-11-25 15:31 | disposition home or self-care (01) ==
LOC: EC 13:44
DX: S39.012A Strain of muscle, fascia and tendon of lower back, initial encounter (principal); I13.0 Hypertensive heart and chronic kidney disease with heart failure and stage 1 through stage 4 chronic kidney disease, or unspecified chronic kidney disease; I50.9 Heart failure, unspecified; N18.30 Chronic kidney disease, stage 3 unspecified; K21.9 Gastro-esophageal reflux disease without esophagitis; G47.33 Obstructive sleep apnea (adult) (pediatric); F17.200 Nicotine dependence, unspecified, uncomplicated; Z86.718 Personal history of other venous thrombosis and embolism; Z86.73 Personal history of transient ischemic attack (TIA), and cerebral infarction without residual deficits; Z79.01 Long term (current) use of anticoagulants; Z79.82 Long term (current) use of aspirin; X58.XXXA Exposure to other specified factors, initial encounter
CPT/HCPCS: 72100; 99283

== ENCOUNTER 2020-12-08 11:26 | Emergency (ER) | payer OTHER ==
[2020-12-08 11:31] VITALS: RESP 18; TEMP 97.5
[2020-12-08] MEDS ORDERED: ONDANSETRON 4 MG/2 ML VIAL IVP STA (12:07)
[2020-12-08] MEDS ORDERED: HYDROmorphone 0.5 MG/0.5 ML SYRINGE IVP STA (12:08)
[2020-12-08 12:13] LABS: Anisocytosis Slight; Basophils # (A) 0.1 k/uL (0-0.2); Basophils % (A) 1 %; Eosinophils # (A) 0.6 k/uL (0-0.7); Eosinophils % (A) 12 %; HCT 41.4 % (39.0-53.0); Lymphocytes % (A) 36 %; MCH 28.3 pg (25.0-35.0); MCHC 33.9 g/dL (31.0-37.0); MCV 83.5 fL (80.0-100.0); Mean Platelet Volume 7.7; Monocytes # (A) 0.5 k/uL (0-1.0); Monocytes % (A) 10 %; Neutrophils # (A) 2.2 k/uL (1.3-7.7); Neutrophils % (A) 40 %; Platelet Count 167 k/uL (150-450); RBC 4.96 m/uL (4.30-5.90); RDW 16.1 % (11.5-15.5); WBC 5.5 k/uL (3.8-10.6)
[2020-12-08 12:25] LABS: Albumin 3.6 g/dL (3.5-5.0); Calcium 8.9 mg/dL (8.4-10.2); Potassium 4.7 mmol/L (3.5-5.1); Total Bilirubin 0.4 mg/dL (0.2-1.3); Total Protein 7.4 g/dL (6.3-8.2)
--- NOTE | 2020-12-08 12:26 | ED ---
General Adult HPI - General Chief complaint: Recheck/Abnormal Lab/Rx Stated complaint: left side swelling Time Seen by Provider: 12/08/20 11:46 Source: patient Mode of arrival: wheelchair Limitations: no limitations - History of Present Illness Initial comments: 65 year-old male patient presents to the emergency department for evaluation of lower extremity edema worsening over the last three weeks. Patient is also having some wheezing, he states no worse than usual, he attributes it to smoking cigarettes. Family is present and states that he does not take his lasix as directed. He did take one tablet yesterday. He states he has some discomfort to the lower legs but no significant pain unless he is walking. He denies any increased shortness of breath or cough. Denies any chest pain. Patient denies any recent rash, fever, chills, abdominal pain, nausea, vomiting, diarrhea, constipation, numbness, tingling, dizziness, weakness, hematuria, dysuria, urinary urgency, urinary frequency, headache, visual changes, or any other complaints. - Related Data Home Medications Medication Instructions Recorded Confirmed Tamsulosin HCl [Flomax] 0.4 mg PO DAILY 01/19/16 12/08/20 amLODIPine [Norvasc] 10 mg PO DAILY 07/23/16 12/08/20 Atorvastatin [Lipitor] 20 mg PO HS 10/21/16 12/08/20 Carvedilol [Coreg] 25 mg PO BID 09/29/18 12/08/20 Omeprazole [PriLOSEC] 20 mg PO DAILY 11/29/18 12/08/20 Aspirin EC [Ecotrin Low Dose] 81 mg PO DAILY 07/19/19 12/08/20 Gabapentin [Neurontin] 400 mg PO TID 07/19/19 12/08/20 Hydrocodone/Acetaminophen [[place] 1 tab PO TID PRN 07/19/19 12/08/20 10-325] Allopurinol [Zyloprim] 300 mg PO DAILY 11/10/20 12/08/20 Apixaban [Eliquis] 5 mg PO DAILY 11/10/20 12/08/20 hydrALAZINE HCL [Apresoline] 100 mg PO QID 11/10/20 12/08/20 Previous Rx's Medication Instructions Recorded Sulfamethoxazole/Trimethoprim 1 each PO BID #20 tablet 12/08/20 [Bactrim DS 800-160 mg] Allergies Allergy/AdvReac Type Severity Reaction Status Date / Time morphine Allergy Anaphylaxis Verified 12/08/20 13:35 pineapple Allergy Swelling Verified 12/08/20 13:35 Review of Systems ROS Statement: Those systems with pertinent positive or pertinent negative responses have been documented in the HPI. ROS Other: All systems not noted in ROS Statement are negative. Past Medical History Past Medical History: Heart Failure, CVA/TIA, Deep Vein Thrombosis (DVT), GERD/Reflux, Hypertension, Prostate Disorder, Renal Disease, Sleep Apnea/CPAP/BIPAP Additional Past Medical History / Comment(s): CVA with slight L arm, L leg weakness, TIA, CKD stage III, problem with his "taste buds"- nothing tastes good, gout bilateral feet and wrists, BPH, DJD, BAN- DOES'NT USE CPAP MACHINE History of Any Multi-Drug Resistant Organisms: None Reported Past Surgical History: Orthopedic Surgery Additional Past Surgical History / Comment(s): LT KNEE repair SX, RT WRIST BONE GRAFT, RT EAR SX(PATCH) , EGD, COLONOSOCPY Past Anesthesia/Blood Transfusion Reactions: No Reported Reaction Additional Past Anesthesia/Blood Transfusion Reaction / Comment(s): CLAUSTERPHOBIA Past Psychological History: No Psychological Hx Reported Smoking Status: Current every day smoker Past Alcohol Use History: Occasional Past Drug Use History: None Reported - Past Family History Mother Family Medical History: Hypertension Father Family Medical History: Cancer Additional Family Medical History / Comment(s): LUNG CANCER General Exam Limitations: no limitations General appearance: alert, in no apparent distress, other (This is a well- developed, well-nourished adult male patient in no acute distress. Vital signs upon presentation are temperature 97.5F oral, pulse 75, respirations 18, blood pressure 141/88, pulse ox 99% on room air.) ENT exam: Present: normal exam, normal oropharynx, mucous membranes moist Respiratory exam: Present: normal lung sounds bilaterally. Absent: respiratory distress, wheezes, rales, rhonchi, stridor Cardiovascular Exam: Present: regular rate, normal rhythm, normal heart sounds. Absent: systolic murmur, diastolic murmur, rubs, gallop, clicks GI/Abdominal exam: Present: soft, normal bowel sounds. Absent: distended, tenderness, guarding, rebound, rigid exam: Present: normal inspection. Absent: testicular tenderness, scrotal swelling Extremities exam: Present: full ROM, normal capillary refill, other (Significant lower extremity edema, nonpitting. Pulses 2+ and equal bilaterally. Skin is warm and dry. No evidence for cellulitis.). Absent: tenderness, pedal edema, joint swelling, calf tenderness Neurological exam: Present: alert, oriented X3, CN II-XII intact Psychiatric exam: Present: normal affect, normal mood Skin exam: Present: warm, dry, intact, normal color. Absent: rash Course Vital Signs 12/08/20 11:27 Temperature 97.5 F L Pulse Rate 75 Respiratory 18 Rate Blood Pressure 141/88 O2 Sat by Pulse 99 Oximetry Medical Decision Making - Medical Decision Making 65 year-old male patient presents with lower extremity edema. Reported wheezing and increase in chronic low back pain. Physical examination shows non pitting edema to the lower extremities. No overlying erythema. Does take eliquis. Left sided weakness r/t hx CVA. Labs reviewed, BNP is normal. EKG unremarkable. Urinalysis shows evidence for UTI. There is no testicular tenderness or swelling. He is afebrile with normal vitals. WBC count is normal. He will be started on antibiotics for UTI. He is non-compliant with lasix, he is given IV dose here. Instructed to take his 20mg dose twice daily to improve leg swelling. He is instructed to follow-up with his primary care physician for recheck in 1- 2 days. Return parameters were discussed in detail. He verbalizes understanding and agrees this plan. Case discussed with my attending Dr. Soliman. - Lab Data Result diagrams: 12/08/20 11:56 12/08/20 11:56 Lab Results 12/08/20 12/08/20 12/08/20 Range/Units 11:56 11:56 11:56 WBC 5.5 (3.8-10.6) k/uL RBC 4.96 (4.30-5.90) m/uL Hgb 14.0 (13.0-17.5) gm/dL Hct 41.4 (39.0-53.0) % MCV 83.5 (80.0-100.0) fL MCH 28.3 (25.0-35.0) pg MCHC 33.9 (31.0-37.0) g/dL RDW 16.1 H (11.5-15.5) % Plt Count 167 (150-450) k/uL MPV 7.7 Neutrophils % 40 % Lymphocytes % 36 % Monocytes % 10 % Eosinophils % 12 % Basophils % 1 % Neutrophils # 2.2 (1.3-7.7) k/uL Lymphocytes # 2.0 (1.0-4.8) k/uL Monocytes # 0.5 (0-1.0) k/uL Eosinophils # 0.6 (0-0.7) k/uL Basophils # 0.1 (0-0.2) k/uL Anisocytosis Slight Sodium 141 (137-145) mmol/L Potassium 4.7 (3.5-5.1) mmol/L Chloride 105 (98-107) mmol/L Carbon Dioxide 31 H (22-30) mmol/L Anion Gap 5 mmol/L BUN 10 (9-20) mg/dL Creatinine 1.16 (0.66-1.25) mg/dL Est GFR (CKD-EPI)AfAm 78 (>60 ml/min/1.73 sqM) Est GFR (CKD-EPI)NonAf 67 (>60 ml/min/1.73 sqM) Glucose 112 H (74-99) mg/dL Calcium 8.9 (8.4-10.2) mg/dL Total Bilirubin 0.4 (0.2-1.3) mg/dL AST 29 (17-59) U/L ALT 15 (4-49) U/L Alkaline Phosphatase 52 (38-126) U/L NT-Pro-B Natriuret Pep 89 pg/mL Total Protein 7.4 (6.3-8.2) g/dL Albumin 3.6 (3.5-5.0) g/dL Urine Color Urine Appearance (Clear) Urine pH (5.0-8.0) Ur Specific [place] (1.001-1.035) Urine Protein (Negative) Urine Glucose (UA) (Negative) Urine Ketones (Negative) Urine Blood (Negative) Urine Nitrite (Negative) Urine Bilirubin (Negative) Urine Urobilinogen (<2.0) mg/dL Ur Leukocyte Esterase (Negative) Urine RBC (0-5) /hpf Urine WBC (0-5) /hpf Urine WBC Clumps (None) /hpf Urine Bacteria (None) /hpf 12/08/20 Range/Units 12:00 WBC (3.8-10.6) k/uL RBC (4.30-5.90) m/uL Hgb (13.0-17.5) gm/dL Hct (39.0-53.0) % MCV (80.0-100.0) fL MCH (25.0-35.0) pg MCHC (31.0-37.0) g/dL RDW (11.5-15.5) % Plt Count (150-450) k/uL MPV Neutrophils % % Lymphocytes % % Monocytes % % Eosinophils % % Basophils % % Neutrophils # (1.3-7.7) k/uL Lymphocytes # (1.0-4.8) k/uL Monocytes # (0-1.0) k/uL Eosinophils # (0-0.7) k/uL Basophils # (0-0.2) k/uL Anisocytosis Sodium (137-145) mmol/L Potassium (3.5-5.1) mmol/L Chloride (98-107) mmol/L Carbon Dioxide (22-30) mmol/L Anion Gap mmol/L BUN (9-20) mg/dL Creatinine (0.66-1.25) mg/dL Est GFR (CKD-EPI)AfAm (>60 ml/min/1.73 sqM) Est GFR (CKD-EPI)NonAf (>60 ml/min/1.73 sqM) Glucose (74-99) mg/dL Calcium (8.4-10.2) mg/dL Total Bilirubin (0.2-1.3) mg/dL AST (17-59) U/L ALT (4-49) U/L Alkaline Phosphatase (38-126) U/L NT-Pro-B Natriuret Pep pg/mL Total Protein (6.3-8.2) g/dL Albumin (3.5-5.0) g/dL Urine Color Light Yellow Urine Appearance Cloudy (Clear) Urine pH 6.5 (5.0-8.0) Ur Specific [place] 1.005 (1.001-1.035) Urine Protein Negative (Negative) Urine Glucose (UA) Negative (Negative) Urine Ketones Negative (Negative) Urine Blood Negative (Negative) Urine Nitrite Negative (Negative) Urine Bilirubin Negative (Negative) Urine Urobilinogen <2.0 (<2.0) mg/dL Ur Leukocyte Esterase Large H (Negative) Urine RBC 3 (0-5) /hpf Urine WBC 152 H (0-5) /hpf Urine WBC Clumps Moderate H (None) /hpf Urine Bacteria Occasional H (None) /hpf - Radiology Data Radiology results: report reviewed, image reviewed Two-view x-ray of the chest shows aortic aneurysm. Correlate for pulmonary artery hypertension. The lung volumes. Impression is by Dr. Castro. Disposition Clinical Impression: Lower extremity edema, Urinary tract infection Disposition: HOME SELF-CARE Condition: Good Instructions (If sedation given, give patient instructions): Urinary Tract Infection in Men (ED), Leg Edema (ED) Additional Instructions: Take your Lasix, 20 mg twice a day. Complete antibiotic prescription in full. Follow-up with her primary care physician for recheck in 1-2 days. Return to the emergency department for any new, worsening, or concerning symptoms. Prescriptions: Sulfamethoxazole/Trimethoprim [Bactrim DS 800-160 mg] 1 each PO BID #20 tablet Is patient prescribed a controlled substance at d/c from ED?: No Referrals: Gunner Meneses MD [Primary Care Provider] - 1-2 days Time of Disposition: 13:42
[2020-12-08 12:50] LABS: Appearance,Urine Cloudy (Clear); Bacteria,Urine Occasional /hpf; Bilirubin,Urine Negative (Negative); Blood,Urine Negative (Negative); Color,Urine Light Yellow; Glucose,Urine (UA) Negative (Negative); Ketones,Urine Negative (Negative); Leukocyte Esterase,Urine Large (Negative); Nitrite,Urine Negative (Negative); PH, Urine 6.5 (5.0-8.0); Protein,Urine Negative (Negative); RBC,Urine 3 /hpf (0-5); Specific Gravity,Urine 1.005 (1.001-1.035); Urobilinogen,Urine <2.0 mg/dL (<2.0); WBC,Urine 152 /hpf (0-5)
--- NOTE | 2020-12-08 13:32 | XR ---
EXAMINATION TYPE: XR chest 2V DATE OF EXAM: 12/08/2020 COMPARISON: Chest x-ray 11/29/2018, left shoulder 12/25/2019, CT chest 02/27/2016 HISTORY: Leg swelling and wheezing TECHNIQUE: Frontal and lateral views of the chest are obtained. FINDINGS: There is no focal air space opacity, pleural effusion, or pneumothorax seen. The cardiac silhouette size is within normal limits. Aorta is prominent as on prior exam. Lung volumes are low on the right hemidiaphragm remains elevated. There are overlying artifacts. The osseous structures are markable for distortion of the proximal left humerus, fracture is chronic. Prominence of the pulmona ry artery may be indicative of pulmonary artery hypertension. IMPRESSION: Aortic aneurysm. Correlate for pulmonary artery hypertension, low lung volumes, follow-u p as indicated.
[2020-12-08] MEDS ORDERED: SULFAMETH-TMP DS STARTER PACK 2 TAB BTL PO STA (13:40)
[2020-12-08] MEDS ORDERED: FUROSEMIDE 10 MG/ML 4 ML VIAL IV STA (13:40)
[2020-12-08 13:56] VITALS: BP 136/84; PULSE 61
== END 2020-12-08 14:04 | disposition home or self-care (01) ==
LOC: EC 11:26
DX: N39.0 Urinary tract infection, site not specified (principal); R60.0 Localized edema; R06.2 Wheezing; I13.0 Hypertensive heart and chronic kidney disease with heart failure and stage 1 through stage 4 chronic kidney disease, or unspecified chronic kidney disease; I50.9 Heart failure, unspecified; N18.30 Chronic kidney disease, stage 3 unspecified; K21.9 Gastro-esophageal reflux disease without esophagitis; G47.33 Obstructive sleep apnea (adult) (pediatric); F17.210 Nicotine dependence, cigarettes, uncomplicated; Z86.73 Personal history of transient ischemic attack (TIA), and cerebral infarction without residual deficits; Z86.718 Personal history of other venous thrombosis and embolism; Z79.01 Long term (current) use of anticoagulants; Z79.82 Long term (current) use of aspirin
CPT/HCPCS: 36415; 93005; 83880; 80053; 85025; 81001; 87086; 71046; 99285; 96374; 96375 ×2; J1940; J2405; J1170